=== PATIENT | female | born 1935 | race Caucasian/White ===

== ENCOUNTER 2021-09-25 16:55 | Inpatient (IN) | payer MEDICARE, MEDICAID, SELFPAY ==
[2021-09-25] VITALS (8 sets, daily range): BP systolic 116–151; BP diastolic 77–113; PULSE 79–99; RESP 30–34; TEMP 35.7–36.8; O2SAT 95–99; BMI 22.3
--- NOTE | 2021-09-25 17:10 | XRR_ITS ---
PROCEDURE INFORMATION: Exam: XR Chest Exam date and time: 09/25/2021 5:10 PM Age: 85 years old Clinical indication: Shortness of breath; Chest pressure; Patient HX: Chest pain and SOB for about a week; AMS; Additional info: Dyspnea TECHNIQUE: Imaging protocol: XR of the chest. Views: 1 view. COMPARISON: CR Chest 1 view [id number] 06/29/2019 12:54 PM FINDINGS: Tubes, catheters and devices: 2 radiodensities measuring approximately 2 and 2.4 cm in size are seen over the lower mid thorax, likely external to the patient, please correlate clinically. Lungs: Patchy bilateral airspace infiltrates. Pleural spaces: Small bilateral pleural effusions. Heart/Mediastinum: Unremarkable. No cardiomegaly. Bones/joints: Unremarkable. XR/XR chest 1V portable [id number] IMPRESSION: 1. Patchy bilateral airspace infiltrates. 2. Small bilateral pleural effusions. 3. 2 radiodensities measuring approximately 2 and 2.4 cm in size are seen over the lower mid thorax, likely external to the patient, please correlate clinically.
--- NOTE | 2021-09-25 17:11 | ECG_ITS ---
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 Measurements Intervals [place] Rate: 93 P: 38 [place]: 189 QRS: -51 QRSD: 117 T: 35 QT: 365 QTc: 455 Interpretive Statements SINUS RHYTHM LEFT ANTERIOR FASCICULAR BLOCK [QRS AXIS <= -45, QR IN I, RS IN II] LEFT VENTRICULAR HYPERTROPHY AND ST-T CHANGE [VOLTAGE CRITERIA PLUS ST/T ABNORMALITY] POSSIBLE ANTERIOR MYOCARDIAL INFARCTION , OF INDETERMINATE AGE [30 ms Q WAVE IN V3/V4, OR R < 0.2 mV IN V4] Compared to ECG 06/29/2019 20:11:41 ST (T wave) deviation now present Atrial fibrillation no longer present Myocardial infarct finding still present Electronically Signed On 09-25-2021 20:19:10 PROGRAM COORDINATOR EXECUTIVE EDUCATION by Adore Pathak M.D. [id number]
--- NOTE | 2021-09-25 17:31 | W.ED.GENADLT ---
HPI - General Adult General: Chief complaint: Shortness of Breath/Dyspnea Stated complaint: SOB Time Seen by Provider: 09/25/21 17:03 History of Present Illness: Patient is an 85-year-old female with a history of pneumonia who presents the emergency room for evaluation of worsening shortness of breath for the last week. Patient tells me that she has been feeling more tired over the last week. She thinks that I may have pneumonia again. Patient denies any productive cough, fever/chills, sore throat, runny nose, chest pain, palpitation, nausea/vomiting, diarrhea, abdominal complaints, complaints, melena or hematochezia. Onset:1 week ago Duration:1 week Location: home Severity:moderate Associated symptoms: Deny chest pain, dyspnea, nausea, rash, palpitations or vomiting Review of Systems Const: Denies: fever(s) or chills Eyes: Denies: change in vision ENMT: Denies: mouth pain Card: Denies: chest pain or palpitations Resp: Denies: dyspnea or non-productive cough GI: Denies: abdominal pain, nausea, vomiting or diarrhea : Denies: dysuria Musc: Denies: extremity pain Skin/Breast: Denies: rash or new lesions Neuro: Denies: weakness in extremities Psych: Reports: other (Normal mood) Jose/Lymph: Denies: easy bruising [facility] ED PFSH: Medical History (Updated 09/25/21 @ 19:02 by Rocio Goldsmith MD) Afib CHF (congestive heart failure) HTN (hypertension) Pneumonia Required emergent intubation 2019 Rib fracture Social History Smoking and tobacco status: never smoked Alcohol intake: never Substance/Drug Use: never Physical Exam Const: COMMON NORMALS: alert HENMT: COMMON NORMALS: atraumatic HEAD & SCALP: atraumatic MOUTH: moist mucous membranes not abnormal Eye: COMMON NORMALS: EOMs intact bilaterally and conjunctivae normal CONJUNCTIVA: Yes conjunctivae normal Neck/C-Spine: COMMON NORMALS: full ROM and supple Resp: COMMON NORMALS: normal respiratory effort OTHER: +coarse breaht sounds b/l Cardio: COMMON NORMALS: regular rate RATE: regular rate GI: COMMON NORMALS: Soft to palpation and non-tender PALPATION: Yes Soft to palpation Extremity: COMMON NORMALS: full ROM Neuro: SENSORIUM/ORIENTATION: Yes alert MOTOR EXAM: No Abnormal motor strength present and Other motor observations present (no focal motor deficits) Psych: COMMON NORMALS: speech normal SPEECH: Yes normal speech MOOD & AFFECT: Yes euthymic mood Course Vital Signs: Vital signs: Vital Signs Temperature 96.2 F L 09/25/21 17:05 Pulse Rate 99 09/25/21 17:05 Respiratory Rate 30 H 09/25/21 17:05 Blood Pressure 151/113 09/25/21 17:05 Pulse Oximetry 95 09/25/21 17:05 MDM - General Adult Medical Decision Making 85-year-old female history of prior pneumonia presenting to emergency room with 1 week of dyspnea. Patient is coarse breath sounds bilaterally. Patient satting at 94 to 95% on 4 L of oxygen. X-rays consistent with bilateral infiltrates. Patient has white count of 17. Temperature of 96.2. Covid pending. We will treat this empirically as bacterial pneumonia with azithromycin and ceftriaxone. Patient demonstrated no increased work of breathing. Patient will be admitted to hospital for management of pneumonia and worsening symptoms[place] [address]. S/p 1 dose of lasix 40mg. Disposition: admission Lab Data : 09/25/21 16:22 09/25/21 16:22 Radiology Impressions Chest X-Ray 09/25/21 17:10 IMPRESSION: 1. Patchy bilateral airspace infiltrates. 2. Small bilateral pleural effusions. 3. 2 radiodensities measuring approximately 2 and 2.4 cm in size are seen over the lower mid thorax, likely external to the patient, please correlate clinically. Laboratory Results WBC 17.0 10^3/uL (4.0-10.0) H 09/25/21 16:22 RBC 3.94 10^6/uL (4.1-5.3) L 09/25/21 16:22 Hgb 11.4 g/dL (11.5-15.3) L 09/25/21 16: Hct 36.2 % (37.0-47.0) L 09/25/21 16:22 MCV 91.9 fl (81-99) 09/25/21 16:22 MCH 28.9 pg (28.0-34.0) 09/25/21 16:22 MCHC 31.5 g/dL (30.0-36.0) 09/25/21 16:22 RDW 13.8 % (12.1-15.1) 09/25/21 16:22 Plt Count 395 10^3/cmm (130-400) 09/25/21 16:22 MPV 11.3 fL (7.4-10.4) H 09/25/21 16:22 Neut % (Auto) 86.4 % 09/25/21 16:22 Lymph % (Auto) 8.9 % 09/25/21 16:22 [place] % (Auto) 3.5 % 09/25/21 16:22 Eos % (Auto) 0.1 % 09/25/21 16:22 Baso % (Auto) 0.2 % 09/25/21 16: Neut # (Auto) 14.73 10^3/uL (1.8-7.7) H 09/25/21 16:22 Lymph # (Auto) 1.5 10^3/uL (0.8-4.8) 09/25/21 16:22 [place] # (Auto) 0.6 10^3/uL (0.2-0.9) 09/25/21 16:22 Eos # (Auto) 0.0 10^3/uL (0.0-0.8) 09/25/21 16:22 Baso # (Auto) 0.0 10^3/uL (0.0-0.1) 09/25/21 16:22 Nucleated RBC % (auto) 0 % 09/25/21 16: Nucleated RBCs # 0.0 /100WBC 09/25/21 16:22 Sodium 128 mmol/L (136-145) L 09/25/21 16:22 Potassium 4.5 mmol/L (3.5-5.1) 09/25/21 16:22 Chloride 90 mmol/L (98-107) L 09/25/21 16:22 Carbon Dioxide 19 mmol/L (22-29) L 09/25/21 16:22 Anion Gap 23.5 (5-19) H 09/25/21 16:22 BUN 16 mg/dL (8-23) 09/25/21 16:22 Creatinine 0.5 mg/dL (0.5-0.9) 09/25/21 16:22 GFR Calculation Not Reportable 09/25/21 16:22 Glucose 148 mg/dL (65-115) H 09/25/21 16:22 Calculated Osmolality 270 mOsm/kg (285-295) L 09/25/21 16:22 Calcium 9.3 mg/dL (8.5-10.5) 09/25/21 16:22 Troponin T Baseline 83 ng/L (0-10) H 09/25/21 16:22 C-Reactive Protein 33.9 mg/L (0.0-4.9) H 09/25/21 16:22 NT-Pro-B Natriuret Pep 70626 pg/mL (0-450) H 09/25/21 16:22 Procalcitonin 0.12 ng/mL (0-0.5) 09/25/21 16:22 Imaging Data Other Imaging: Radiologist's impression: [address] [address] XRay Report Signed Patient: Ria Katz Unit #: [id number] : 1935 Age/Sex: 85 / F ADM Date: 09/25/21 Loc: ER Room/Bed: Attending Dr: Ordering Provider/Ordering MD: Lenin Bridges MD Date of Service: 09/25/21 Procedure(s): XR chest 1V portable [id number] Accession Number(s): [id number] Report Number: [id number] PROCEDURE INFORMATION: Exam: XR Chest Exam date and time: 09/25/2021 5:10 PM Age: 85 years old Clinical indication: Shortness of breath; Chest pressure; Patient HX: Chest pain and SOB for about a week; AMS; Additional info: Dyspnea TECHNIQUE: Imaging protocol: XR of the chest. Views: 1 view. COMPARISON: CR Chest 1 view [id number] 06/29/2019 12:54 PM FINDINGS: Tubes, catheters and devices: 2 radiodensities measuring approximately 2 and 2.4 cm in size are seen over the lower mid thorax, likely external to the patient, please correlate clinically. Lungs: Patchy bilateral airspace infiltrates. Pleural spaces: Small bilateral pleural effusions. Heart/Mediastinum: Unremarkable. No cardiomegaly. Bones/joints: Unremarkable. XR/XR chest 1V portable [id number] IMPRESSION: 1. Patchy bilateral airspace infiltrates. 2. Small bilateral pleural effusions. 3. 2 radiodensities measuring approximately 2 and 2.4 cm in size are seen over the lower mid thorax, likely external to the patient, please correlate clinically. ? Dictated By: Orion Borges MD Signed By: Orion Borges MD Signed Date/Time: 09/25/21 1745 DD/ 1710 Discharge Plan Discharge Patient Disposition: Admitted As Inpatient Admit Provider: Roico Goldsmith Clinical Impression: CHF exacerbation, Pneumonia Condition: Stable Coding Level of Care Code ED Car Servicer for Chg Fwd Exam Comprehensive
--- NOTE | 2021-09-25 17:37 | PC.NURSE ---
pATIENT PLACED ON CONTINUOUS NIBP AND CM
[2021-09-25 17:42] LABS: Basophils % 0.2 %; Eosinophils % 0.1 %; Hematocrit 36.2 % (37.0-47.0); Hemoglobin 11.4 g/dL (11.5-15.3); Lymphocytes # 1.5 10^3/uL (0.8-4.8); Lymphocytes % 8.9 %; Mean Corpuscular HGB Conc 31.5 g/dL (30.0-36.0); Mean Corpuscular Hemoglobin 28.9 pg (28.0-34.0); Mean Corpuscular Volume 91.9 fl (81-99); Mean Platelet Volume 11.3 fL (7.4-10.4); Monocytes # 0.6 10^3/uL (0.2-0.9); Monocytes % 3.5 %; Neutrophils # 14.73 10^3/uL (1.8-7.7); Neutrophils % 86.4 %; Nucleated Red Blood Cells % 0 %; Platelet Count 395 10^3/cmm (130-400); Red Blood Count 3.94 10^6/uL (4.1-5.3); Red Cell Distribution Width 13.8 % (12.1-15.1)
[2021-09-25 17:58] LABS: Troponin(5th) Baseline 83 ng/L (0-10)
[2021-09-25 18:05] LABS: NT Pro B Type Natriuretic Pept 10495 pg/mL (0-450); Procalcitonin 0.12 ng/mL (0-0.5)
[2021-09-25] MEDS: cefTRIAXone 1,000 MG in sodium chloride 0.9% (plus) 50 ML 100 MG IV (18:06)
[2021-09-25 18:19] LABS: Anion Gap 23.5 (5-19); Blood Urea Nitrogen 16 mg/dL (8-23); C Reactive Protein 33.9 mg/L (0.0-4.9); Calcium 9.3 mg/dL (8.5-10.5); Carbon Dioxide 19 mmol/L (22-29); Chloride 90 mmol/L (98-107); Glucose 148 mg/dL (65-115); Osmolality Calculated 270 mOsm/kg (285-295); Potassium 4.5 mmol/L (3.5-5.1); Sodium 128 mmol/L (136-145)
[2021-09-25] MEDS: azithromycin 500 MG in sodium chloride 0.9% 250 ML 250 MG IV (18:38)
--- NOTE | 2021-09-25 18:55 | P.HP_ITS ---
Providers/Chief Complaint Admitting Physician: Rocio Goldsmith MD Primary Care Provider: Celestine Delong MD Chief Complaint: SOB History of Present Illness Ria Katz is a 85 year old female without significant past medical history presented today with chief complaint of shortness of breath. Patient stating that for last 2 weeks she has been experiencing cold-like symptoms such as fatigue, lethargy however no fever diarrhea chest pain. No orthopnea or PND. She is denying weight gain. She does not use any oxygen at home. No recent COVID-19 related exposure or symptoms. She is not vaccinated. She was reluctant to come to the hospital however decided to come in because of worsening shortness of breath and reproducible midepigastric discomfort. She has not experienced diaphoresis or vomiting. Diagnostic work-up in the ER revealed CHF exacerbation and changes concerning pneumonia. I have requested CTA chest, will add BiPAP to decrease her work of breathing, she was put on 4 L nasal cannula, she is experiencing conversational dyspnea, using abdominal muscles, Hypertensive urgency Review of Systems Const: Reports: chills, body aches and fatigue Eyes: Denies: change in vision ENMT: Denies: throat pain Card: Reports: chest pain and dyspnea on exertion Resp: Reports: dyspnea GI: Denies: abdominal pain : Denies: flank pain Musc: Reports: back pain Skin/Breast: Denies: rash Neuro: Denies: headache(s) Psych: Reports: anxiety Endo: Denies: polyuria Jose/Lymph: Denies: easy bruising All/Imm: Denies: urticaria Medications/Allergies Home Medications Medication Instructions Recorded Confirmed Last Taken Type No Known Home Medications 09/25/21 09/25/21 Unknown History PFSH Acute 2 PFSH: Medical History Afib CHF (congestive heart failure) HTN (hypertension) Pneumonia Required emergent intubation 2019 Rib fracture Tubal ligation evaluation Surgical History No pertinent past surgical history Family History Denies family history of Family history of premature coronary artery disease Social History Smoking and tobacco status: never smoked Alcohol intake: never Substance/Drug Use: never Vitals/I&O/Wt Last Vital Signs Temp 96.2 F L 09/25/21 17:05 Pulse 99 09/25/21 17:05 Resp 30 H 09/25/21 17:05 BP 151/113 09/25/21 17:05 Pulse Ox 95 09/25/21 17:05 Weight last 48 hrs Weight 58.967 kg Physical Exam Narrative: elderly female Looks fluid overloaded Pedal edema and leg edema +1+ Conversational dyspnea On 4 L nasal cannula Using abdominal muscles I did not appreciate JVD however has coarse crackles of the lungs bilaterally Nonfocal neuro exam Poor dentition Awake and alert Nonfocal neuro exam Daughter at the bedside Data : 09/25/21 16:22 09/25/21 16:22 A&P Assessment and plan (1) CHF exacerbation: Status: Acute (2) Pneumonia: Status: Acute (3) Respiratory failure: Status: Acute Plan Acute CHF exacerbation High BNP Clinical signs of fluid overload We will request BiPAP to decrease her work of breathing Currently on 4 L nasal cannula Acute hypoxic respiratory failure On 4 L nasal cannula Using abdominal muscles Conversational dyspnea Requested CTA chest rule out PE Possible community-acquired pneumonia Continue ceftriaxone azithromycin Add steroids TSH Check D-dimer COVID-19 is pending Full code Patient wants her daughter to make further decision in case of further worsening Hypertensive urgency: Add hypertensive regimen Cardiac diet Attestations Medical Necessity Statement*: >2 midnights anticipated Time Spent in Patient Care: 35mins Coding Level of Care Code Acute Falafel Cart Cook for [facility] Fwd Diagnoses CHF exacerbation I50.9 Pneumonia J18.9 Respiratory failure J96.90
--- NOTE | 2021-09-25 19:11 | ECG_ITS ---
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 Measurements Intervals [place] Rate: 89 P: 30 [place]: 180 QRS: -54 QRSD: 117 T: 73 QT: 375 QTc: 458 Interpretive Statements SINUS RHYTHM WITH MARKED RHYTHM IRREGULARITY, POSSIBLE NON-CONDUCTED PAC LEFT ANTERIOR FASCICULAR BLOCK [QRS AXIS <= -45, QR IN I, RS IN II] LEFT VENTRICULAR HYPERTROPHY AND ST-T CHANGE [VOLTAGE CRITERIA PLUS ST/T ABNORMALITY] POSSIBLE ANTERIOR MYOCARDIAL INFARCTION , OF INDETERMINATE AGE [30 ms Q WAVE IN V3/V4, OR R < 0.2 mV IN V4] Compared to ECG 09/25/2021 17:44:53 No significant changes Electronically Signed On 09-26-2021 8:02:50 TRADER FIXED INCOME by Adore Pathak M.D. [id number]
[2021-09-25 19:20] LABS: Troponin 5 2HR 70.47 ng/L (0-10)
--- NOTE | 2021-09-25 19:38 | CTR_ITS ---
PROCEDURE INFORMATION: Exam: CTA Chest With Contrast Exam date and time: 09/25/2021 7:38 PM Age: 85 years old Clinical indication: Dyspnea; Patient HX: Acute hypoxia and SOB; Additional info: Acute hypoxia SOB TECHNIQUE: Imaging protocol: Computed tomographic angiography of the chest with contrast. 3D rendering (Not supervised by radiologist): MIP and/or 3D reconstructed images were created by the technologist. Radiation optimization: All CT scans at this facility use at least one of these dose optimization techniques: automated exposure control; mA and/or kV adjustment per patient size (includes targeted exams where dose is matched to clinical indication); or iterative reconstruction. Contrast material: OMNI 350; Contrast volume: 55 ml; Contrast route: INTRAVENOUS (IV); COMPARISON: CT Chest w IV contrast* [id number] 06/25/2019 9:50 AM RADIATION DOSE METRICS: Total DLP (mGy-cm): 483.81 FINDINGS: Pulmonary arteries: Evaluation of peripheral pulmonary arteries is limited beyond the segmental level secondary to the phase of contrast enhancement. No filling defects in the central pulmonary arteries to suggest a large pulmonary embolism. Aorta: Stable moderate atherosclerotic changes in the visualized arteries. No evidence for aortic aneurysm. Evaluation for aortic dissection is limited due to the phase of contrast-enhancement. Lungs: Mucous plugging with in the left apicoposterior bronchus with alveolar airspace disease in the affected segment suggesting postobstructive atelectasis/pneumonia in the left upper lobe. Diffuse, bilateral moderately severe areas of ground-glass opacification in a random distribution in both lungs. No pulmonary parenchymal nodules or masses. Pleural spaces: Moderate bilateral pleural effusions. No pneumothorax. Heart: Stable moderate enlargement of the heart. Stable calcification of the aortic and mitral valves. Stable extensive atherosclerotic calcification in the coronary arteries. Esophagus: The esophagus is collapsed, which can limit evaluation. No focal abnormality in the esophagus otherwise. Mediastinal space: No mediastinal hematoma. No pneumomediastinum. Lymph nodes: Multiple subcentimeter lymph nodes in the mediastinum. No lymphadenopathy. Liver: The visualized liver is unremarkable. Spleen: The visualized spleen is unremarkable. Adrenal glands: The visualized right and left adrenal glands are unremarkable. Kidneys and ureters: The visualized left kidney is unremarkable. Bones/joints: Bones are diffusely osteopenic. Old, mild compression deformities of T7 and T10. Degenerative changes in the spine and shoulders. Soft tissues: No acute abnormality in the extrathoracic soft tissues. CT/CT angio chest PE protcl [id number] IMPRESSION: 1. Mucous plugging with in the left apicoposterior bronchus with alveolar airspace disease in the affected segment suggesting postobstructive atelectasis/pneumonia in the left upper lobe. Recommend followup chest imaging to insure resolution of these findings. 2. Diffuse, bilateral moderately severe areas of ground-glass opacification in a random distribution in both lungs. Differential diagnosis includes asymmetric pulmonary edema versus an atypical pneumonia, including viral organisms. Again, recommend followup chest imaging to insure resolution of these findings. 3. Evaluation of peripheral pulmonary arteries is limited beyond the segmental level secondary to the phase of contrast enhancement. No filling defects in the central pulmonary arteries to suggest a large pulmonary embolism. 4. Moderate bilateral pleural effusions. 5. Incidental/nonacute findings are listed in the report.
--- NOTE | 2021-09-25 19:41 | ECG_ITS ---
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 Measurements Intervals [place] Rate: 96 P: [place]: QRS: -50 QRSD: 109 T: 37 QT: 386 QTc: 490 Interpretive Statements SINUS RHYTHM WITH PAC'S LEFT ANTERIOR FASCICULAR BLOCK [QRS AXIS <= -45, QR IN I, RS IN II] MINIMAL VOLTAGE CRITERIA FOR LVH, CONSIDER NORMAL VARIANT POSSIBLE ANTERIOR MYOCARDIAL INFARCTION , OF INDETERMINATE AGE Compared to ECG 09/25/2021 18:58:19 ST (T wave) deviation no longer present Myocardial infarct finding still present Electronically Signed On 09-26-2021 8:00:34 DEFENSIVE LINE COACH by Adore Pathak M.D. [id number]
[2021-09-25 19:47] LABS: Adenovirus Not Detected (NOT DETECT); Chlamydia Pneumoniae Not Detected (NOT DETECT); Coronavirus 229E,HKU1,NL63,OC4 Not Detected (NOT DETECT); Human Metapneumovirus Not Detected (NOT DETECT); Human Rhinovirus/Enterovirus Not Detected (NOT DETECT); Influenza A Not Detected (NOT DETECT); Influenza A H1 Not Detected (NOT DETECT); Influenza A H1-2009 Not Detected (NOT DETECT); Influenza A H3 Not Detected (NOT DETECT); Influenza B Not Detected (NOT DETECT); Mycoplasma Pneumoniae Not Detected (NOT DETECT); Parainfluenza Virus Type 1 Not Detected (NOT DETECT); Parainfluenza Virus Type 2 Not Detected (NOT DETECT); Parainfluenza Virus Type 3 Not Detected (NOT DETECT); Parainfluenza Virus Type 4 Not Detected (NOT DETECT); Respiratory Syncytial Virus A Not Detected (NOT DETECT); Respiratory Syncytial Virus B Not Detected (NOT DETECT); SARS-COV-2 Not Detected (NOT DETECT)
[2021-09-25 19:55] LABS: Influenza A Not Detected (NOT DETECT); Influenza A H1 Not Detected (NOT DETECT); Influenza A H1-2009 Not Detected (NOT DETECT); Influenza A H3 Not Detected (NOT DETECT); Influenza B Not Detected (NOT DETECT); Results from Genmark
[2021-09-25 19:59] LABS: Procalcitonin 0.12 ng/mL (0-0.5)
[2021-09-25] MEDS: FUROsemide 10 mg/mL SDV 10mL 80 MG IVP (20:27)
[2021-09-25] MEDS: morphine 4 mg/mL SDV 1 mL 2 MG IVP (20:27)
[2021-09-25] MEDS: iohexol 350 mg/mL 100 mL Btl IV (21:09)
--- NOTE | 2021-09-25 21:22 | USCV_ITS ---
Transthoracic Echo Ria Katz Age: 85 Gender: F : 1935 Exam Date: 09/25/2021 23:11 Ordering Phys: Rocio Goldsmith MD Technologist: Holden Gonzalez Exam Location: [facility] [place] Indication: CHF BP: / HR: 81 Rhythm: Sinus Technical Quality: Adequate MEASUREMENTS (Male / Female) Normal Values 2D ECHO LV Diastolic Diameter PLAX 2.5 cm 4.2 - 5.9 / 3.9 - 5.3 cm LV Systolic Diameter PLAX 2.2 cm IVS Diastolic Thickness 2.0 cm 0.6 - 1.0 / 0.6 - 0.9 cm IVS Systolic Thickness 1.8 cm LVPW Diastolic Thickness 2.0 cm 0.6 - 1.0 / 0.6 - 0.9 cm LVPW Systolic Thickness 2.3 cm LVOT Diameter 1.9 cm LV Ejection Fraction 2D Teich 22.4 % LV Ejection Fraction MOD 2C 35.9 % LV Ejection Fraction 2C AL 34.0 % LA Diameter 3.8 cm LA Width 4.8 cm LA Height 6.6 cm RA Width 3.1 cm RA Height 5.1 cm Aorta at Sinotubular Diameter 1.7 cm M-MODE Aortic Annulus Diameter 1.9 cm LA Ao Ratio MM 1.7 MV E Point Septal Separation 2.5 cm DOPPLER AV Peak Velocity 407.7 cm/s LVOT Peak Velocity 44.7 cm/s AV Area Cont Eq vti 0.5 cm squared AV Area Cont Eq pk 0.3 cm squared MV Peak Velocity 80.0 cm/s MV Area PHT 4.6 cm squared Mitral E to A Ratio 1.2 MV E' Velocity 43.0 cm/s Mitral E to MV E' Ratio 15.2 Mitral E to LV E' Lateral Ratio 11.4 Mitral E to LV E' Septal Ratio 22.5 TR Peak Velocity 119.9 cm/s TR Peak Gradient 5.8 mmHg TR Mean Velocity 106.1 cm/s TR Mean Gradient 5.9 mmHg TR Velocity Time Integral 36.3 cm Right Atrial Pressure 10.0 mmHg Pulmonary Artery Systolic Pressu 15.8 mmHg PV Peak Velocity 82.7 cm/s RV Acceleration Time 0.1 s RV Ejection Time 0.3 s RV AcT/ET 0.4 FINDINGS Left Ventricle Normal left ventricular size. LV systolic function is moderate to severely reduced with EF of 30-35%. Moderate to severe global hypokinesis. Grade 2 diastolic dysfunction Right Ventricle The right ventricle is normal in size and function. Right Atrium The right atrium is normal in size. Left Atrium The left atrium is dilated Mitral Valve Moderate mitral annular calcification without significant stenosis or prolapse. There is mild mitral regurgitation. Aortic Valve Aortic valve is thickened and calcified. There is severe low flow low gradient aortic stenosis. By continued equation, patient's aortic valve area is 0.7 cm squared with mean gradient of 31 mmHg. There is moderate aortic regurgitation. Tricuspid Valve Structurally normal tricuspid valve without significant stenosis. Mild tricuspid regurgitation. Insufficient TR jet to calculate RVSP Pulmonic Valve Not well visualized. There is mild pulmonic regurgitation. Pericardium Normal pericardium without effusion. Aorta Normal ascending aorta dimension. CONCLUSIONS LV systolic function is moderate to severely reduced with EF of 30-35% Moderate to severe global hypokinesis. Grade 2 diastolic dysfunction Left atrium is dilated Aortic valve is thickened and calcified. There is severe low flow low gradient aortic stenosis. By continued equation, patient's aortic valve area is 0.7 cm squared with mean gradient of 31 mmHg. There is moderate aortic regurgitation. Moderate mitral annular calcification without significant stenosis or prolapse. There is mild mitral regurgitation. Mild tricuspid regurgitation. Mild pulmonic regurgitation Compared to prior echocardiogram from 06/26/2019, LV systolic function has decreased further and is now 30-35% Bharat Mtz MD (Electronically Signed) Final Date: 26 September 2021 16:54 S
[2021-09-25 22:11] LABS: Add Urine Microscopic? YES; Bilirubin Urine Neg (Negative); Blood Urine Neg (Negative); Glucose Urine UA Norm (Normal); Ketones Urine Negative (Negative); Leukocyte Esterase Urine Negative (Negative); Nitrate Urine Negative (Negative); Protein Urine 1+ (Negative); Urine Appearance Clear (CLEAR); Urine Color Yellow (Yellow); Urobilinogen Urine Norm (Negative); pH Urine 5 (5-7)
[2021-09-25 22:12] LABS: RBC Urine 0-4 /hpf (0-2); WBC Urine 0-4 /hpf (0-5)
[2021-09-25 22:13] LABS: Add Urine Culture? No; Amorphous Sediment Urine 1+ /hpf; Bacteria Urine 1+ /hpf
[2021-09-25 23:12] LABS: Troponin 5 6HR 69.07 ng/L (0-10)
[2021-09-25 23:24] LABS: Thyroid Stimulating Hormone 1.49 uIU/mL (0.27-4.20)
[2021-09-26] VITALS (12 sets, daily range): BP systolic 96–116; BP diastolic 63–77; PULSE 69–109; RESP 12–26; TEMP 36.6–37.1; O2SAT 94–100
--- NOTE | 2021-09-26 01:41 | ECG_ITS ---
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 Measurements Intervals [place] Rate: 83 P: 28 [place]: 189 QRS: -54 QRSD: 113 T: -29 QT: 443 QTc: 521 Interpretive Statements SINUS RHYTHM LEFT ANTERIOR FASCICULAR BLOCK [QRS AXIS <= -45, QR IN I, RS IN II] MINIMAL VOLTAGE CRITERIA FOR LVH, CONSIDER NORMAL VARIANT [MEETS CRITERIA IN ONE OF: R(aVL), S(V1), R(V5), R(V5/V6)+S(V1)] POSSIBLE ANTERIOR MYOCARDIAL INFARCTION , OF INDETERMINATE AGE [30 ms Q WAVE IN V3/V4, OR R < 0.2 mV IN V4] Compared to ECG 09/25/2021 19:46:22 Atrial fibrillation no longer present Myocardial infarct finding still present Electronically Signed On 09-26-2021 17:39:53 ACCOUNTING CONSULTANT by Bharat Mtz M.D. [id number]
[2021-09-26 05:09] LABS: ABG PCO2 39.8 mmHg (35-45); ABG PH Result 7.46 (7.35-7.45); Arterial Blood Gas Hematocrit 32.8 % (37-47); Blood Gas Allen Test Pos; Blood Gas Sample Site Radial, left; Blood Gas Sample Type Arterial; HCO3 ABG 28.1 mmol/L (22-26); Oxygen Device BIPAP
[2021-09-26 05:56] LABS: Basophils % 0.2 %; Eosinophils # 0.1 10^3/uL (0.0-0.8); Eosinophils % 0.8 %; Hematocrit 30.8 % (37.0-47.0); Hemoglobin 9.9 g/dL (11.5-15.3); Lymphocytes # 3.1 10^3/uL (0.8-4.8); Lymphocytes % 24.2 %; Mean Corpuscular HGB Conc 32.1 g/dL (30.0-36.0); Mean Corpuscular Hemoglobin 28.9 pg (28.0-34.0); Mean Corpuscular Volume 90.1 fl (81-99); Mean Platelet Volume 10.3 fL (7.4-10.4); Monocytes # 0.9 10^3/uL (0.2-0.9); Monocytes % 6.8 %; Neutrophils # 8.58 10^3/uL (1.8-7.7); Neutrophils % 67.5 %; Nucleated Red Blood Cells % 0 %; Platelet Count 373 10^3/cmm (130-400); Red Blood Count 3.42 10^6/uL (4.1-5.3); Red Cell Distribution Width 13.9 % (12.1-15.1); White Blood Count 12.7 10^3/uL (4.0-10.0)
--- NOTE | 2021-09-26 06:07 | PC.NURSE ---
Patient refused to have mrsa pcr completed.
[2021-09-26 06:26] LABS: Troponin T (5th) Once 80 ng/L (0-10)
[2021-09-26 06:35] LABS: Alanine Aminotransferase 19 U/L (0-33); Albumin Level 3.3 g/dL (3.5-5.2); Alkaline Phosphatase 73 IU/L (35-105); Aspartate Amino Transferase 16 U/L (0-32); Blood Urea Nitrogen 14 mg/dL (8-23); Calcium 8.9 mg/dL (8.5-10.5); Carbon Dioxide 27 mmol/L (22-29); Chloride 94 mmol/L (98-107); Globulin 3.4 g/dL (1.3-4.6); Glucose 104 mg/dL (65-115); Magnesium 2.1 mg/dL (1.7-2.3); Osmolality Calculated 277 mOsm/kg (285-295); Sodium 133 mmol/L (136-145); Total Bilirubin 0.2 mg/dL (0.15-1.2); Total Protein 6.7 g/dL (6.6-8.7)
--- NOTE | 2021-09-26 06:36 | PC.NURSE ---
Shift Note Frequent safety and comfort rounds continue. Orders and/or nursing care completed as indicated. Patient monitored for response to intervention and treatment(s). Education provided includes visiting hours. Patient and/or sales representative marine supplies verbalize understanding however daughter didnt leave. Will continue to monitor.
[2021-09-26] MEDS: azithromycin 250 mg Tablet 500 MG PO (08:32)
[2021-09-26] MEDS: predniSONE 20 mg Tablet 40 MG PO (08:32)
[2021-09-26] MEDS: guaiFENesin 600 mg Tablet 1200 MG PO ×2 (08:33→17:28)
[2021-09-26] MEDS: cefTRIAXone 1,000 MG in sodium chloride 0.9% (plus) 50 ML 100 MG IV (08:34)
[2021-09-26] MEDS: FUROsemide 10 mg/mL SDV 10mL 60 MG IVP (08:35)
--- NOTE | 2021-09-26 09:55 | PC.CHAP ---
Pastoral Care Encounter/Spiritual Assessment Type of Contact [] Declined submarine worker visit [] Patient/Family/Request visit [] Outpatient visit [] Follow-up visit [] Physician referral [] Code/Alert [x] Routine visit [] Staff referral [] Actively dying [] Patient sleeping [] Family support [] [] Out of room [] Palliative care [] [] Receiving care in room [] Pre-surgical visit [] Trauma [] Long length of stay [] ICU visit [] Other: Relational/Emotional Strength [x] Patient feels connected with others/family/visitors/staff [] Distress [] Loneliness/isolation [] Abandonment Spirituality of Patient [x] Person of Irish [] Attends Spiritism of their Irish [x] Believes in Prayer [] Reads Bible or Protestant materials [] There are Spiritual issues to be addressed Endless Bed Drum Sander Interventions [x] Prayer [x] Active listening [x] Non-anxious presence [x] Spiritual/emotional support [] Crisis/trauma care [] Spiritual counseling [] Bereavement support [] Provided bereavement packet [] Provided Bible/devotional materials [] Provided toy/stuffed animal, coloring book to patient or family member [] Provided Communion [] Anointing/[place] [] Salvation [x] Completed spiritual assessment [] Other: Impact on Illness or Injury [] Angry [] Fearful [] Anxious [] Often cries [] Exhaustion [] Unable to work [] Unable to attend hinduism [] Unable to walk/stand [] Unable to read [] Unable to drive [] Unable to eat/drink [] Unable to sleep [] Unable to be with family [] Patient intubated [] Other: Summary Pt's daughter was present and did most of the talking. Pt came in yesterday and they believe she will stay until tomorrow. Daughter does not have a car and hired an Uber to get to the hospital. Money to hire and Uber to get back and forth is an issue. She has multiple health issues herself including a bad back so she is unable to walk far. As submarine worker was visiting, the daughter did obtain a food tray from the cafeteria so she had something to eat. Another problem they are dealing with is the Pt has soiled clothing and they are uncertain what Pt will wear home. There is no one available that can bring clothing to Pt. Pt lives with daughter, the daughters is an over the road mud trucker and he is currently away. Pt has grandsons living in the home but none able to drive. Time spent with patient 15m
--- NOTE | 2021-09-26 11:26 | PM.PN ---
Subjective Subjective: Patient is feeling much better, currently on 4 L nasal cannula He was asking for food, upset that she has not received her blood pressure Eager to return home Leukocytosis improving Afebrile Covid negative Influenza negative Did well over night with BiPAP Vitals/I&O/Wt Last Vital Signs Temp 98.5 F 09/26/21 07:05 Pulse 78 09/26/21 07:48 Resp 12 09/26/21 07:05 BP 96/63 09/26/21 07:05 Pulse Ox 99 09/26/21 07:48 09/25/21 09/26/21 09/26/21 22:59 06:59 14:59 Intake Total 300 / 300 100 / 400 50 / 50 Output Total 4400 / 4400 Balance 300 / 300 -4300 / -4000 50 / 50 Weight last 48 hrs Weight 79.696 kg Weight 58.967 kg Physical Exam Narrative: Patient looks much more alert and awake S1, S2 Abdomen soft Trace edema of legs No audible stridor or wheezing Currently on 4 L nasal cannula Awake and alert Nonfocal neuro exam Work of breathing has improved significantly Urinary Catheter Management: Mo: Cath Placed During This Visit: yes Reason for Continuing Indwelling Catheter: Acute Urinary Retention or Obstruction Urinary Catheter Date of Insertion: 09/25/21 Urinary Catheter Time of Insertion: 20:29 Data : 09/26/21 05:12 09/26/21 05:12 A&P Assessment and plan (1) Mucus plugging of bronchi: Status: Acute (2) Respiratory failure: Status: Acute (3) CHF exacerbation: Status: Acute (4) Pneumonia: Status: Acute (5) Acute respiratory failure with hypoxia: Status: Acute Plan Acute respiratory failure Mucous plug Patient was suffering from increased work of breathing, conversational dyspnea Required BiPAP overnight This morning she is doing better, work of breathing has improved Currently on 4 L nasal cannula No PE or COVID-19, influenza negative Continue ceftriaxone and azithromycin Prednisone 40 mg daily Add chest vest 3 times daily with Mucinex Outpatient pulmonary follow-up if she stays stable New onset CHF exacerbation Echo is pending Continue low-dose Lasix MRSA PCR pending Hypertension: Reduce the dose of Lasix pressure was softer Full code Cardiac DVT prophylaxis Lovenox Attestations Medical Necessity Statement*: Continue hospitalization Time Spent in Patient Care: 20min Coding Level of Care Code Acute Online Affiliate Marketing Manager for Chg Fwd Diagnoses Mucus plugging of bronchi T17.500A Respiratory failure J96.90 CHF exacerbation I50.9 Pneumonia J18.9 Acute respiratory failure with hypoxia J96.01
[2021-09-26] MEDS: enoxaparin 40 mg/0.4 mL Syringe SUBCUT (11:58)
--- NOTE | 2021-09-26 17:30 | PC.NURSE ---
Vital signs stable. Mo intact and clean with adequate output. Patient did not complain of any pain. Patients visitor was reminded of the visiting hours for tonight. Patient did not have a bowel movement. Patient is currently on 4 L of oxygen. Will continue to monitor and give report to night nurse.
[2021-09-26] MEDS: ipratropium-albuterol 3 mL Neb INHALATION (20:19)
--- NOTE | 2021-09-26 22:23 | P.CONIM_ITS ---
Providers/Reason For Consult Consulting Physician/Specialty*: Dr AVERY Short/Cardiology Reason for Consult*: /CHF/LV dysfunction Requesting Physician: Agus Attending Physician: Rocio Goldsmith MD Primary Care Provider: Celestine Delong MD History of Present Illness History of Present Illness Ria Katz is a 85 year old female with no significant past medical history is presenting with complaints of progressive shortness of breath for the last 2 weeks. She has not been to a physician for many years. She started with the dyspnea on exertion. Her shortness of breath got worse. She also had some feeling of tightness in the chest. No fever or chills. No significant cough. She has been having some amount of orthopnea and PND. Because of the worsening shortness of breath and weakness, she decided to come to the hospital. Her chest x-ray showed features suggestive of possible pneumonia versus atypical pulmonary edema. She was initially placed on BiPAP. Her oxygenation gradually improved. Currently she is off BiPAP and is on 4 L of oxygen by nasal cannula. She had echocardiogram which revealed LV dysfunction with aortic valve stenosis. Cardiology consult is requested for further cardiac evaluation recommendations. Patient has no previous history for any coronary disease, myocardial infarction or congestive heart failure. No history for hypertension, diabetes or dyslipidemia. She is a poor historian. She has not been taking medications at home. The patient apparently had echocardiogram which is reported as LV ejection fraction of 30 to 35%. Severe low gradient aortic valve stenosis with a valve area of 0.7 cm2. Mean gradient of 31 mmHg. The official report is not available at this time. Review of Systems Const: Reports: chills, body aches and fatigue Eyes: Denies: change in vision ENMT: Denies: throat pain Card: Reports: chest pain and dyspnea on exertion Resp: Reports: dyspnea GI: Denies: abdominal pain : Denies: flank pain Musc: Reports: back pain Skin/Breast: Denies: rash Neuro: Denies: headache(s) Psych: Reports: anxiety Endo: Denies: polyuria Jose/Lymph: Denies: easy bruising All/Imm: Denies: urticaria Medications/Allergies Home Medications Medication Instructions Recorded Confirmed Last Taken Type No Known Home Medications 09/25/21 09/25/21 Unknown History Allergies Allergy/AdvReac Type Severity Reaction Status Date / Time No Known Allergies Allergy Verified 09/25/21 20:48 Current Medications Generic Name Dose Route Start Last Admin Trade Name Tavaresq PRN Reason Stop Dose Admin Albuterol/Ipratropium 3 ml 09/25/21 21:22 09/26/21 20:19 Ipratropium-Albuterol 3 Ml Neb INHALATION 3 ml Q6H PRN Administration SHORTNESS OF BREATH Azithromycin 500 mg 09/26/21 09:00 09/26/21 08:32 Azithromycin 250 Mg Tablet PO 500 mg DAILY BRENNEN Administration Protocol Enoxaparin Sodium 40 mg 09/26/21 12:00 09/26/21 11:58 Enoxaparin 40 Mg/0.4 Ml Syringe SUBCUT 40 mg Q24H BRENNEN Administration Guaifenesin 1,200 mg 09/26/21 08:00 09/26/21 17:28 Guaifenesin 600 Mg Tablet PO 1,200 mg BID BRENNEN Administration Ceftriaxone Sodium 1,000 mg/ 50 mls @ 100 mls/hr 09/26/21 09:00 09/26/21 09:24 Sodium Chloride IV Infused DAILY BRENNEN Infusion Protocol Prednisone 40 mg 09/26/21 09:00 09/26/21 08:32 Prednisone 20 Mg Tablet PO 40 mg DAILY BRENNEN Administration Senna/Docusate Sodium 1 tab 09/26/21 09:00 09/26/21 08:36 Sennosides-Docusate Tablet PO Not Given DAILY BRENNEN PFSH Acute PFSH: Medical History (Updated 09/27/21 @ 06:17 by Eryn Short MD) Afib CHF (congestive heart failure) HTN (hypertension) Pneumonia Required emergent intubation 2019 Rib fracture Tubal ligation evaluation Surgical History No pertinent past surgical history Family History Denies family history of Family history of premature coronary artery disease Social History Smoking and tobacco status: never smoked Alcohol intake: never Vitals/I&O/Wt Last Vital Signs Temp 97.8 F 09/26/21 20:00 Pulse 95 09/26/21 20:39 Resp 18 09/26/21 20:32 BP 116/77 09/26/21 20:00 Pulse Ox 97 09/26/21 20:32 09/26/21 09/26/21 09/26/21 06:59 14:59 22:59 Intake Total 100 / 400 50 / 50 Output Total 4400 / 4400 1200 / 1200 1800 / 3000 Balance -4300 / -4000 -1150 / -1150 -1800 / -2950 Weight last 48 hrs Weight 175 lb 11.2 oz Weight 130 lb Physical Exam 2 Narrative: GENERAL: The patient is alert and oriented times three. Not in any acute distress. HEENT: Mild pallor. No icterus or lymphadenopathy. The pupils are reactant to light. Oral cavity: There are no mucous membrane lesions. Funduscopic examination: Fundus is not visualized NECK: Trachea appears to be central. No masses noted. No JVD or thyromegaly ap preciated. No carotid bruit. RESPIRATORY: Chest is symmetrical. No intercostals muscle retraction or any accessory muscle activation. There is no chest wall tenderness. Breath sounds are heard bilaterally. The intensity of the breath sounds are diminished in the bases. BREASTS: Deferred. HEART: The PMI could not be palpated. No palpable precordial events. S1 and S2 are normal. No S3 or S4 heard. No pericardial rub or any click heard. Ejection systolic murmur grade 4/6 in the aortic area. No diastolic murmurs. ABDOMEN: Abdomen is obese. No vessel pulsations or distention. No tenderness. No organomegaly appreciated. No abdominal bruit. Bowel sounds are normally heard. Vague tenderness in the umbilical region. : Deferred. RECTAL: Deferred. LYMPHATIC: No lymphadenopathy noted in the neck or groin. EXTREMITIES: 1- 2+ edema both lower extremities. No cyanosis. Peripheral pulses are palpable but weak bilaterally. MUSCULOSKELETAL: No acute joint deformities or swelling. SKIN: There are no significant scars or skin rash noted. NEUROPSYCHIATRIC: The patient is alert and oriented x3. Appears to be in a good mood. The higher functions are grossly within normal limits. No tremors or r igidity noted. Urinary Catheter Management: Mo: Cath Placed During This Visit: yes Reason for Continuing Indwelling Catheter: Acute Urinary Retention or Obstruction Urinary Catheter Date of Insertion: 09/25/21 Urinary Catheter Time of Insertion: 20:29 Data : 09/27/21 04:25 09/27/21 04:25 Other Labs: Laboratory Last Values WBC 12.7 10^3/uL (4.0-10.0) H 09/26/21 05:12 RBC 3.42 10^6/uL (4.1-5.3) L 09/26/21 05:12 Hgb 9.9 g/dL (11.5-15.3) L 09/26/21 05:12 Hct 30.8 % (37.0-47.0) L 09/26/21 05:12 MCV 90.1 fl (81-99) 09/26/21 05:12 MCH 28.9 pg (28.0-34.0) 09/26/21 05:12 MCHC 32.1 g/dL (30.0-36.0) 09/26/21 05:12 RDW 13.9 % (12.1-15.1) 09/26/21 05:12 Plt Count 373 10^3/cmm (130-400) 09/26/21 05:12 MPV 10.3 fL (7.4-10.4) 09/26/21 05:12 Neut % (Auto) 67.5 % 09/26/21 05:12 Lymph % (Auto) 24.2 % 09/26/21 05:12 Mcdonald % (Auto) 6.8 % 09/26/21 05:12 Eos % (Auto) 0.8 % 09/26/21 05:12 Baso % (Auto) 0.2 % 09/26/21 05:12 Neut # (Auto) 8.58 10^3/uL (1.8-7.7) H 09/26/21 05:12 Lymph # (Auto) 3.1 10^3/uL (0.8-4.8) 09/26/21 05:12 Mcdonald # (Auto) 0.9 10^3/uL (0.2-0.9) 09/26/21 05:12 Eos # (Auto) 0.1 10^3/uL (0.0-0.8) 09/26/21 05:12 Baso # (Auto) 0.0 10^3/uL (0.0-0.1) 09/26/21 05:12 Nucleated RBC % (auto) 0 % 09/26/21 05:12 Nucleated RBCs # 0.0 /100WBC 09/26/21 05:12 Specimen Type Arterial 09/26/21 05:00 Sample Site Radial, left 09/26/21 05:00 ABG pH 7.46 (7.35-7.45) H 09/26/21 05:00 ABG pCO2 39.8 mmHg (35-45) 09/26/21 05:00 ABG pO2 119.0 mmHg (80.0-100.0) H 09/26/21 05:00 ABG HCO3 28.1 mmol/L (22-26) H 09/26/21 05:00 ABG Base Excess 4.0 mmol/L (-2.0-2.0) H 09/26/21 05:00 Solitario Test Pos 09/26/21 05:00 Hematocrit 32.8 % (37-47) L 09/26/21 05:00 O2 Delivery Device Bipap 09/26/21 05:00 FiO2 40.0 % 09/26/21 05:00 PEEP 6.0 cmH20 09/26/21 05:00 Couture Dressmaker ID Hensa 09/26/21 05:00 Sodium 133 mmol/L (136-145) L 09/26/21 05:12 Potassium 4.0 mmol/L (3.5-5.1) 09/26/21 05:12 Chloride 94 mmol/L (98-107) L 09/26/21 05:12 Carbon Dioxide 27 mmol/L (22-29) 09/26/21 05:12 Anion Gap 16.0 (5-19) 09/26/21 05:12 BUN 14 mg/dL (8-23) 09/26/21 05:12 Creatinine 0.6 mg/dL (0.5-0.9) 09/26/21 05:12 GFR Calculation Not Reportable 09/26/21 05:12 Glucose 104 mg/dL (65-115) 09/26/21 05:12 Calculated Osmolality 277 mOsm/kg (285-295) L 09/26/21 05:12 Calcium 8.9 mg/dL (8.5-10.5) 09/26/21 05:12 Magnesium 2.1 mg/dL (1.7-2.3) 09/26/21 05:12 Total Bilirubin 0.2 mg/dL (0.15-1.2) 03/08/22 05:12 AST 16 U/L (0-32) 09/26/21 05:12 ALT 19 U/L (0-33) 09/26/21 05:12 Alkaline Phosphatase 73 IU/L (35-105) 09/26/21 05:12 Troponin T Gen 5 ng/L 80 ng/L (0-10) H 09/26/21 05:12 Troponin T Baseline Cancelled 09/25/21 20:55 Troponin T 120 Minute 70.47 ng/L (0-10) H 09/25/21 18:34 Delta Troponin T -12.53 ABS# (0-10) L 09/25/21 18:34 Troponin T Hi Sens 6Hr 69.07 ng/L (0-10) H 09/25/21 22:30 Troponin T Hi Sens 6Hr Delta -13.93 ng/L (0-12) L 09/25/21 22:30 C-Reactive Protein 33.9 mg/L (0.0-4.9) H 09/25/21 16:22 NT-Pro-B Natriuret Pep 32979 pg/mL (0-450) H 09/25/21 16:22 Total Protein 6.7 g/dL (6.6-8.7) 09/26/21 05:12 Albumin 3.3 g/dL (3.5-5.2) L 09/26/21 05:12 Globulin 3.4 g/dL (1.3-4.6) 09/26/21 05:12 Procalcitonin 0.12 ng/mL (0-0.5) 09/25/21 18:34 TSH 1.49 uIU/mL (0.27-4.20) 09/25/21 20:55 Urine Color Yellow (Yellow) 09/25/21 20:30 Urine Appearance Clear (CLEAR) 09/25/21 20:30 Urine pH 5 (5-7) 09/25/21 20:30 Ur Specific Jarreau 1.020 (1.005-1.030) 09/25/21 20:30 Urine Protein 1+ (Negative) H 09/25/21 20:30 Urine Glucose (UA) Norm (Normal) 09/25/21 20:30 Urine Ketones Negative (Negative) 09/25/21 20:30 Urine Blood Neg (Negative) 09/25/21 20:30 Urine Nitrate Negative (Negative) 09/25/21 20:30 Urine Bilirubin Neg (Negative) 09/25/21 20:30 Urine Urobilinogen Norm mg/dL (Negative) 09/25/21 20:30 Ur Leukocyte Esterase Negative (Negative) 09/25/21 20:30 Urine RBC 0-4 /hpf (0-2) H 09/25/21 20:30 Urine WBC 0-4 /hpf (0-5) H 09/25/21 20:30 Ur Squamous Epith Cells 10-15 /hpf (0-5) H 09/25/21 20:30 Amorphous Sediment 1+ /hpf 09/25/21 20:30 Urine Bacteria 1+ /hpf (NONE) H 09/25/21 20:30 Hyaline Casts 5-10 /lpf H 09/25/21 20:30 Nasal Influ A H1 2009 PCR Not detected (NOT DETECT) 09/25/21 17:25 Coronavirus 229E (PCR) Not detected (NOT DETECT) 09/25/21 17:25 Influenza A (H1) PCR Not detected (NOT DETECT) 09/25/21 17:25 Influenza A (H3) PCR Not detected (NOT DETECT) 09/25/21 17:25 Influenza Type A Ag Cancelled 09/25/21 17:25 Influenza Type A (PCR) Not detected (NOT DETECT) 09/25/21 17:25 Influenza Type B Ag Cancelled 09/25/21 17:25 Influenza Type B (PCR) Not detected (NOT DETECT) 09/25/21 17:25 SARS-CoV-2 (PCR) Not detected (NOT DETECT) 09/25/21 17:25 EKG 1: My Interpretation: The EKG revealed sinus rhythm with a poor R wave progression. Nonspecific IVCD. Left anterior fascicular block. Nonspecific T wave changes. Minimal voltage criteria for LVH. EKG computer-generated impression: Chest X-Ray 09/25/21 17:10 IMPRESSION: 1. Patchy bilateral airspace infiltrates. 2. Small bilateral pleural effusions. 3. 2 radiodensities measuring approximately 2 and 2.4 cm in size are seen over the lower mid thorax, likely external to the patient, please correlate clinically. Chest CTA 09/25/21 19:38 IMPRESSION: 1. Mucous plugging with in the left apicoposterior bronchus with alveolar airspace disease in the affected segment suggesting postobstructive atelectasis/pneumonia in the left upper lobe. Recommend followup chest imaging to insure resolution of these findings. 2. Diffuse, bilateral moderately severe areas of ground-glass opacification in a random distribution in both lungs. Differential diagnosis includes asymmetric pulmonary edema versus an atypical pneumonia, including viral organisms. Again, recommend followup chest imaging to insure resolution of these findings. 3. Evaluation of peripheral pulmonary arteries is limited beyond the segmental level secondary to the phase of contrast enhancement. No filling defects in the central pulmonary arteries to suggest a large pulmonary embolism. 4. Moderate bilateral pleural effusions. 5. Incidental/nonacute findings are listed in the report. Echocardiogram A&P Assessment and plan (1) Aortic valve stenosis: Patient seems to have a severe low-grade aortic valve stenosis. Patient may require aortic valve surgery. For further evaluation of the aortic valve as well as the coronary arteries, a cardiac catheterization would be appropriate. Currently the patient not able to make a decision on this. I will be discussing this with the patient's family and final decision will be made afterwards. Status: Acute (2) Acute respiratory failure with hypoxia: Most likely the respiratory failure was secondary to congestive heart failure. The heart failure seems to be fairly compensated at this time. May continue on the current measures. Status: Acute (3) CHF exacerbation: Patient has LV ejection fraction of 30 to 35%. Most likely the aortic valve stenosis coupled with LV dysfunction might be causing the congestive heart failure. The etiology of the LV dysfunction is not clear. Possibility of underlying coronary ischemia causing LV dysfunction is a consideration. For further evaluation, patient may benefit from a cardiac catheterization. I will be discussing this with the patient's family and the decision will be made afterwards. I may start the patient on an CATHY inhibitor. He may be carefully treated with IV diuretics, spironolactone, low-dose beta-mary and other sy mptomatic measures. Status: Acute (4) HTN (hypertension): The blood pressure is currently normotensive. May continue on the current medications. Status: Acute (5) Anemia: Etiology is not clear at this time. Patient may require further work-up to identify the etiology. Status: Acute Plan Other problems are Possible pneumonia Obesity Degenerative joint disease I will be reviewing the echocardiogram. I may start the patient on losartan 25 mg p.o. daily, spironolactone 25 mg p.o. daily, metoprolol 12.5 mg p.o. twice daily. The blood pressure needs to be closely monitored. Based on the patient's clinical progress and the results of the above, further recommendations will be made. Thank you for the opportunity to evaluate this patient make these recommendations. Consult Attestations Medical Necessity Statement: Patient requires continued hospital stay for close monitoring and further management Coding Level of Care Code Acute Drilling Fluids Specialist for [facility] [place] Medical Decision Making High Complexity Diagnoses Acute respiratory failure with hypoxia J96.01 CHF exacerbation I50.9 Aortic valve stenosis I35.0 HTN (hypertension) I10 Anemia D64.9
[2021-09-27] VITALS (10 sets, daily range): BP systolic 107–132; BP diastolic 59–84; PULSE 74–109; RESP 16–24; TEMP 36.4–37; O2SAT 90–99
[2021-09-27 05:04] LABS: Basophils % 0.1 %; Eosinophils % 0.1 %; Hematocrit 32.3 % (37.0-47.0); Hemoglobin 10.3 g/dL (11.5-15.3); Lymphocytes % 17.7 %; Mean Corpuscular HGB Conc 31.9 g/dL (30.0-36.0); Mean Platelet Volume 10.1 fL (7.4-10.4); Monocytes # 0.9 10^3/uL (0.2-0.9); Monocytes % 5.2 %; Neutrophils # 12.68 10^3/uL (1.8-7.7); Neutrophils % 76.3 %; Nucleated Red Blood Cells % 0 %; Platelet Count 400 10^3/cmm (130-400); Red Blood Count 3.55 10^6/uL (4.1-5.3); Red Cell Distribution Width 13.9 % (12.1-15.1); White Blood Count 16.6 10^3/uL (4.0-10.0)
[2021-09-27 05:26] LABS: Anion Gap 14.3 (5-19); Blood Urea Nitrogen 20 mg/dL (8-23); Calcium 9.1 mg/dL (8.5-10.5); Carbon Dioxide 30 mmol/L (22-29); Chloride 95 mmol/L (98-107); Glucose 133 mg/dL (65-115); Osmolality Calculated 285 mOsm/kg (285-295); Potassium 4.3 mmol/L (3.5-5.1); Sodium 135 mmol/L (136-145)
--- NOTE | 2021-09-27 06:35 | PC.NURSE ---
Shift Note Frequent safety and comfort rounds continue. Orders and/or nursing care completed as indicated. Patient monitored for response to intervention and treatment(s). Education provided includes oxygen therapy. Patient and/or digital sales representative verbalizes understanding. Will continue to monitor.
[2021-09-27] MEDS: azithromycin 250 mg Tablet 500 MG PO (08:40)
[2021-09-27] MEDS: FUROsemide 20 mg Tablet PO (08:40)
[2021-09-27] MEDS: sennosides-docusate Tablet 1 TAB PO (08:41)
[2021-09-27] MEDS: guaiFENesin 600 mg Tablet 1200 MG PO ×2 (08:41→18:18)
[2021-09-27] MEDS: predniSONE 20 mg Tablet 40 MG PO (08:41)
[2021-09-27] MEDS: metoprolol tartrate 25 mg Tablet 12.5 MG PO ×2 (08:41→18:18)
[2021-09-27] MEDS: cefTRIAXone 1,000 MG in sodium chloride 0.9% (plus) 50 ML 100 MG IV (08:41)
[2021-09-27] MEDS: losartan 50 mg Tablet 25 MG PO (08:41)
[2021-09-27] MEDS: spironolactone 25 mg Tablet PO (08:41)
--- NOTE | 2021-09-27 08:49 | PM.PN ---
Subjective Subjective: Leukocytosis noted, currently on 2 L nasal cannula, appreciate cardiology recommendations Patient is stating that she would like to get everything fixed, most likely she will opt for coronary angiogram but would like to discuss with her daughter who is coming in next 2 hours She is very agitated because of lack of sleep and adult services librarian blood draws Vitals/I&O/Wt Last Vital Signs Temp 98.0 F 09/27/21 08:00 Pulse 109 H 09/27/21 08:00 Resp 18 09/27/21 08:00 BP 132/84 09/27/21 08:00 Pulse Ox 92 09/27/21 08:00 09/26/21 09/27/21 09/27/21 22:59 06:59 14:59 Intake Total 60 / 110 240 / 350 Output Total 4400 / 5600 5100 / 67390 Balance -4340 / -5490 -4860 / -43960 Weight last 48 hrs Weight 79.696 kg Weight 58.967 kg Physical Exam Narrative: Patient is laying semi-Oakes position 2 L nasal cannula No active chest pain No active wheezing crackles or rhonchi Abdomen soft Looks euvolemic today Yellow urine in the bag Abdomen soft No active chest pain Nonfocal neuro exam Awake and alert Urinary Catheter Management: Mo: Cath Placed During This Visit: yes Reason for Continuing Indwelling Catheter: Acute Urinary Retention or Obstruction Urinary Catheter Date of Insertion: 09/25/21 Urinary Catheter Time of Insertion: 20:29 Data : 09/27/21 04:25 09/27/21 04:25 A&P Assessment and plan (1) Anemia: Status: Acute (2) HTN (hypertension): Status: Acute (3) Aortic valve stenosis: Status: Acute (4) Acute respiratory failure with hypoxia: Status: Acute (5) Mucus plugging of bronchi: Status: Acute (6) Respiratory failure: Status: Acute (7) CHF exacerbation: Status: Acute (8) Pneumonia: Status: Acute Plan Mucous plug CTA did not show any PE, mucous plug Chest vest therapy Mucolytic's Leukocytosis No fever Continue antibiotics Acute hypoxia Currently doing well on 2 L nasal cannula No signs of PE Covid PCR negative Likely related to underlying community-acquired pneumonia Acute systolic CHF exacerbation Grade 2 diastolic dysfunction EF 30 to 35% Severe Cardiology consulted yesterday Patient might opt for coronary angiogram and aortic valve replacement, waiting for her daughter to come in to discuss Full code Cardiac diet DVT prophylaxis Lovenox Currently on ceftriaxone azithromycin Changed to p.o. Levaquin by tomorrow if leukocytosis improved, discontinue steroids Attestations Medical Necessity Statement*: Continue hospitalization Time Spent in Patient Care: 30min Coding Level of Care Code Acute Switchboard Operator Supervisor for Chg Fwd Diagnoses Anemia D64.9 HTN (hypertension) I10 Aortic valve stenosis I35.0 Acute respiratory failure with hypoxia J96.01 Mucus plugging of bronchi T17.500A Respiratory failure J96.90 CHF exacerbation I50.9 Pneumonia J18.9
[2021-09-27] MEDS: ipratropium-albuterol 3 mL Neb INHALATION (08:50)
[2021-09-27] MEDS: enoxaparin 40 mg/0.4 mL Syringe SUBCUT (11:08)
[2021-09-27] MEDS: morphine 4 mg/mL SDV 1 mL 1 MG IVP (11:49)
[2021-09-27] MEDS: FUROsemide 10 mg/mL SDV 4mL 40 MG IVP ×2 (14:56→21:26)
[2021-09-27] MEDS: potassium chloride ER 20 mEq Tablet 40 MEQ PO (14:56)
--- NOTE | 2021-09-27 19:17 | P.PN_ITS ---
Subjective Subjective: Patient he is doing okay. Denies any chest pain or chest tightness. No shortness of breath. Vitals/I&O/Wt Last Vital Signs Temp 98.6 F 09/27/21 16:00 Pulse 79 09/27/21 16:00 Resp 18 09/27/21 16:00 BP 109/59 09/27/21 16:00 Pulse Ox 90 09/27/21 16:00 09/27/21 09/27/21 09/27/21 06:59 14:59 22:59 Intake Total 240 / 350 530 / 530 240 / 770 Output Total 5100 / 39660 750 / 750 Balance -4860 / -52628 530 / 530 -510 / 20 Weight last 48 hrs Weight 175 lb 11.2 oz Physical Exam Narrative: GENERAL: The patient is alert and oriented times three. Not in any acute distress. HEENT: No significant pallor, icterus or lymphadenopathy.Oral cavity: There are no mucous membrane lesions. NECK: Trachea appears to be central. No masses noted. No JVD or thyromegaly appreciated. RESPIRATORY: Chest is symmetrical. No intercostals muscle retraction or any accessory muscle activation. There is no chest wall tenderness. Breath sounds are heard bilaterally. Scattered fine rales bilaterally at the bases. No evidence of any consolidation. BREASTS: Deferred. HEART: The heart sounds are normal. No S3 or S4. Ejection Stolle murmur grade 4/6 in the aortic area. No diastolic murmurs.. No pericardial rub ABDOMEN: No vessel pulsations or distention. No tenderness. No organomegaly appreciated. Bowel sounds are normally heard. : Deferred. RECTAL: Deferred. LYMPHATIC: No lymphadenopathy noted in the neck or groin. EXTREMITIES: 1+ edema both lower extremities. No cyanosis. MUSCULOSKELETAL: No acute joint deformities or swelling SKIN: There are no significant rashes or ecchymosis NEUROPSYCHIATRIC: The patient is alert and oriented x3. Appears to be in a good mood. No tremors or rigidity noted. Urinary Catheter Management: Mo: Cath Placed During This Visit: yes Reason for Continuing Indwelling Catheter: Accurate Measurement of Urinary Output in Critically Ill Patients Urinary Catheter Date of Insertion: 09/25/21 Urinary Catheter Time of Insertion: 20:29 Data : 09/27/21 04:25 09/27/21 04:25 Other Labs: Laboratory Last Values WBC 16.6 10^3/uL (4.0-10.0) H 09/27/21 04:25 RBC 3.55 10^6/uL (4.1-5.3) L 09/27/21 04:25 Hgb 10.3 g/dL (11.5-15.3) L 09/27/21 04:25 Hct 32.3 % (37.0-47.0) L 09/27/21 04:25 MCV 91.0 fl (81-99) 09/27/21 04:25 MCH 29.0 pg (28.0-34.0) 09/27/21 04:25 MCHC 31.9 g/dL (30.0-36.0) 09/27/21 04:25 RDW 13.9 % (12.1-15.1) 09/27/21 04:25 Plt Count 400 10^3/cmm (130-400) 09/27/21 04:25 MPV 10.1 fL (7.4-10.4) 09/27/21 04:25 Neut % (Auto) 76.3 % 09/27/21 04:25 Lymph % (Auto) 17.7 % 09/27/21 04:25 Cross % (Auto) 5.2 % 09/27/21 04:25 Eos % (Auto) 0.1 % 09/27/21 04:25 Baso % (Auto) 0.1 % 09/27/21 04:25 Neut # (Auto) 12.68 10^3/uL (1.8-7.7) H 09/27/21 04:25 Lymph # (Auto) 3.0 10^3/uL (0.8-4.8) 09/27/21 04:25 Cross # (Auto) 0.9 10^3/uL (0.2-0.9) 09/27/21 04:25 Eos # (Auto) 0.0 10^3/uL (0.0-0.8) 09/27/21 04:25 Baso # (Auto) 0.0 10^3/uL (0.0-0.1) 09/27/21 04:25 Nucleated RBC % (auto) 0 % 09/27/21 04:25 Nucleated RBCs # 0.0 /100WBC 09/27/21 04:25 Specimen Type Arterial 09/26/21 05:00 Sample Site Radial, left 09/26/21 05:00 ABG pH 7.46 (7.35-7.45) H 09/26/21 05:00 ABG pCO2 39.8 mmHg (35-45) 09/26/21 05:00 ABG pO2 119.0 mmHg (80.0-100.0) H 09/26/21 05:00 ABG HCO3 28.1 mmol/L (22-26) H 09/26/21 05:00 ABG Base Excess 4.0 mmol/L (-2.0-2.0) H 09/26/21 05:00 Solitario Test Pos 09/26/21 05:00 Hematocrit 32.8 % (37-47) L 09/26/21 05:00 O2 Delivery Device Bipap 09/26/21 05:00 FiO2 40.0 % 09/26/21 05:00 PEEP 6.0 cmH20 09/26/21 05:00 Technology Integration Specialist ID Hensa 09/26/21 05:00 Sodium 135 mmol/L (136-145) L 09/27/21 04:25 Potassium 4.3 mmol/L (3.5-5.1) 09/27/21 04:25 Chloride 95 mmol/L (98-107) L 09/27/21 04:25 Carbon Dioxide 30 mmol/L (22-29) H 09/27/21 04:25 Anion Gap 14.3 (5-19) 09/27/21 04:25 BUN 20 mg/dL (8-23) 09/27/21 04:25 Creatinine 0.7 mg/dL (0.5-0.9) 09/27/21 04:25 GFR Calculation Not Reportable 09/27/21 04:25 Glucose 133 mg/dL (65-115) H 09/27/21 04:25 Calculated Osmolality 285 mOsm/kg (285-295) 09/27/21 04:25 Calcium 9.1 mg/dL (8.5-10.5) 09/27/21 04:25 Magnesium 2.1 mg/dL (1.7-2.3) 09/26/21 05:12 Total Bilirubin 0.2 mg/dL (0.15-1.2) 03/08/22 05:12 AST 16 U/L (0-32) 09/26/21 05:12 ALT 19 U/L (0-33) 09/26/21 05:12 Alkaline Phosphatase 73 IU/L (35-105) 09/26/21 05:12 Troponin T Gen 5 ng/L 80 ng/L (0-10) H 09/26/21 05:12 Troponin T Baseline Cancelled 09/25/21 20:55 Troponin T 120 Minute 70.47 ng/L (0-10) H 09/25/21 18:34 Delta Troponin T -12.53 ABS# (0-10) L 09/25/21 18:34 Troponin T Hi Sens 6Hr 69.07 ng/L (0-10) H 09/25/21 22:30 Troponin T Hi Sens 6Hr Delta -13.93 ng/L (0-12) L 09/25/21 22:30 C-Reactive Protein 33.9 mg/L (0.0-4.9) H 09/25/21 16:22 NT-Pro-B Natriuret Pep 97420 pg/mL (0-450) H 09/25/21 16:22 Total Protein 6.7 g/dL (6.6-8.7) 09/26/21 05:12 Albumin 3.3 g/dL (3.5-5.2) L 09/26/21 05:12 Globulin 3.4 g/dL (1.3-4.6) 09/26/21 05:12 Procalcitonin 0.12 ng/mL (0-0.5) 09/25/21 18:34 TSH 1.49 uIU/mL (0.27-4.20) 09/25/21 20:55 Urine Color Yellow (Yellow) 09/25/21 20:30 Urine Appearance Clear (CLEAR) 09/25/21 20:30 Urine pH 5 (5-7) 09/25/21 20:30 Ur Specific [place] 1.020 (1.005-1.030) 09/25/21 20:30 Urine Protein 1+ (Negative) H 09/25/21 20:30 Urine Glucose (UA) Norm (Normal) 09/25/21 20:30 Urine Ketones Negative (Negative) 09/25/21 20:30 Urine Blood Neg (Negative) 09/25/21 20:30 Urine Nitrate Negative (Negative) 09/25/21 20:30 Urine Bilirubin Neg (Negative) 09/25/21 20:30 Urine Urobilinogen Norm mg/dL (Negative) 09/25/21 20:30 Ur Leukocyte Esterase Negative (Negative) 09/25/21 20:30 Urine RBC 0-4 /hpf (0-2) H 09/25/21 20:30 Urine WBC 0-4 /hpf (0-5) H 09/25/21 20:30 Ur Squamous Epith Cells 10-15 /hpf (0-5) H 09/25/21 20:30 Amorphous Sediment 1+ /hpf 09/25/21 20:30 Urine Bacteria 1+ /hpf (NONE) H 09/25/21 20:30 Hyaline Casts 5-10 /lpf H 09/25/21 20:30 Nasal Influ A H1 2009 PCR Not detected (NOT DETECT) 09/25/21 17:25 Coronavirus 229E (PCR) Not detected (NOT DETECT) 09/25/21 17:25 Influenza A (H1) PCR Not detected (NOT DETECT) 09/25/21 17:25 Influenza A (H3) PCR Not detected (NOT DETECT) 09/25/21 17:25 Influenza Type A Ag Cancelled 09/25/21 17:25 Influenza Type A (PCR) Not detected (NOT DETECT) 09/25/21 17:25 Influenza Type B Ag Cancelled 09/25/21 17:25 Influenza Type B (PCR) Not detected (NOT DETECT) 09/25/21 17:25 SARS-CoV-2 (PCR) Not detected (NOT DETECT) 09/25/21 17:25 Micro: Microbiology 09/26/21 08:45 MRSA Culture - Final Nose A&P Assessment and plan (1) Aortic valve stenosis: Patient seems to have a severe low-grade aortic valve stenosis. Patient may require aortic valve surgery. For further evaluation of the aortic valve as well as the coronary arteries, a cardiac catheterization would be appropriate. Currently the patient not able to make a decision on this. I will be discussing this with the patient's family and final decision will be made afterwards The patient is being treated for pneumonia. She also has an anemia which has not been addressed. We may consider further cardiac work-up after treating the infection and also after appropriate work-up of the anemia. Status: Acute (2) Acute respiratory failure with hypoxia: Most likely the respiratory failure was secondary to congestive heart failure. The heart failure seems to be fairly compensated at this time. May continue on the current measures. Status: Acute (3) CHF exacerbation: Patient has LV ejection fraction of 30 to 35%. Most likely the aortic valve stenosis coupled with LV dysfunction might be causing the congestive heart failure. The etiology of the LV dysfunction is not clear. Possibility of underlying coronary ischemia causing LV dysfunction is a consideration. For further evaluation, patient may benefit from a cardiac catheterization. I discussed with the patient daughter about her current condition and the further management options. Once infection is appropriately treated and also after having some basic evaluation for the anemia we may consider going ahead with a cardiac work-up. Status: Acute (4) HTN (hypertension): The blood pressure is currently normotensive. May continue on the current medications. Status: Acute (5) Anemia: Etiology is not clear at this time. Patient may require further work-up to identify the etiology. Status: Acute Plan Other problems are Possible pneumonia Obesity Degenerative joint disease May continue on the current medications for the time being. Electrolytes need to be closely monitored. Attestations Medical Necessity Statement*: Patient requires continued hospital stay for close monitoring and further management Coding Level of Care Code Acute Warehouse Packer for Renetta Fwlevon History Detailed Exam Detailed Medical Decision Making Moderate Complexity Diagnoses Aortic valve stenosis I35.0 Acute respiratory failure with hypoxia J96.01 CHF exacerbation I50.9 HTN (hypertension) I10 Anemia D64.9
[2021-09-28] VITALS (16 sets, daily range): BP systolic 100–150; BP diastolic 59–91; PULSE 43–89; RESP 13–38; TEMP 36.3–36.7; O2SAT 83–97
--- NOTE | 2021-09-28 02:00 | PC.NURSE ---
Patient put on calllight. Asked this RN what she needs to do if she is having surgery in am and has not pooped. This RN educated patient that she had received stool softners and she did not have to have a BM to have surgery as it was cardiac related. Patient then called LIQUID LOADER later telling her this RN told her to poop in the bed and we would clean it up. Patient was then re-educated that she was not told that but if she did have an accident that we would indeed make sure she was clean. Will monitor.
[2021-09-28 05:56] LABS: Basophils % 0.1 %; Eosinophils % 0.1 %; Hematocrit 33.9 % (37.0-47.0); Hemoglobin 10.5 g/dL (11.5-15.3); Lymphocytes % 26.1 %; Mean Corpuscular Hemoglobin 28.5 pg (28.0-34.0); Mean Corpuscular Volume 92.1 fl (81-99); Mean Platelet Volume 10.2 fL (7.4-10.4); Monocytes # 1.5 10^3/uL (0.2-0.9); Monocytes % 6.3 %; Neutrophils # 15.38 10^3/uL (1.8-7.7); Neutrophils % 66.5 %; Nucleated Red Blood Cells % 0 %; Platelet Count 509 10^3/cmm (130-400); Red Blood Count 3.68 10^6/uL (4.1-5.3); Red Cell Distribution Width 14.2 % (12.1-15.1); White Blood Count 23.1 10^3/uL (4.0-10.0)
[2021-09-28 06:17] LABS: Anion Gap 18.6 (5-19); Blood Urea Nitrogen 35 mg/dL (8-23); Calcium 9.1 mg/dL (8.5-10.5); Carbon Dioxide 26 mmol/L (22-29); Chloride 92 mmol/L (98-107); Glucose 138 mg/dL (65-115); Osmolality Calculated 282 mOsm/kg (285-295); Potassium 5.6 mmol/L (3.5-5.1); Sodium 131 mmol/L (136-145)
[2021-09-28] MEDS: FUROsemide 10 mg/mL SDV 4mL 40 MG IVP (06:41)
[2021-09-28 07:10] LABS: Slide Review Slide Review Perform
[2021-09-28 08:03] LABS: Ferritin 768 ng/mL (15-150); Iron 26 ug/dL (37-145); Percent Saturation 11.3 % (20-50); Total Iron Binding Capacity 230 mcg/dl; Unsaturated Iron Binding 204 ug/dL (112-347)
[2021-09-28 08:18] LABS: Vitamin B12 607 pg/mL (232-1245)
[2021-09-28 08:22] LABS: Folate Level 17.5 ng/mL (4.8-37.3)
--- NOTE | 2021-09-28 09:02 | P.PN_ITS ---
Subjective Subjective: `? Dr. Short recommended anemia work-up before advancing with coronary angiogram as there is no acute indication Patient is agreeable Nurse updated to advance her diet We will do iron studies B12, FOBT During this hospitalization hemoglobin has been stable around 10.5, Vitals/I&O/Wt Last Vital Signs Temp 98.0 F 09/28/21 04:00 Pulse 79 09/28/21 08:00 Resp 13 09/28/21 08:00 BP 114/78 09/28/21 08:00 Pulse Ox 92 09/28/21 08:00 09/27/21 09/28/21 09/28/21 22:59 06:59 14:59 Intake Total 360 / 890 900 / 1790 Output Total 2800 / 2800 2750 / 5550 Balance -2440 / -1910 -1850 / -3760 Physical Exam Narrative: Patient is endorsing feeling weak and lethargic however nonfocal neuro exam Saturating well on 2.5 L nasal cannula Saturating 90% S1, S2, systolic murmur He looks euvolemic Abdomen soft Bilateral breath sound with mild rhonchi Patient is awake and alert Nonfocal neuro exam Appropriate mood and affect Urinary Catheter Management: Mo: Cath Placed During This Visit: yes Reason for Continuing Indwelling Catheter: Accurate Measurement of Urinary Outpu t in Critically Ill Patients Urinary Catheter Date of Insertion: 09/25/21 Urinary Catheter Time of Insertion: 20:29 Data : 09/28/21 05:16 09/28/21 05:16 Micro: Microbiology 09/26/21 08:45 MRSA Culture - Final Nose A&P Assessment and plan (1) Anemia: Status: Acute (2) HTN (hypertension): Status: Acute (3) Aortic valve stenosis: Status: Acute (4) Acute respiratory failure with hypoxia: Status: Acute (5) Mucus plugging of bronchi: Status: Acute (6) Respiratory failure: Status: Acute (7) CHF exacerbation: Status: Acute (8) Pneumonia: Status: Acute (9) Acute hyperkalemia: Status: Acute Plan Acute new onset CHF exacerbation Low EF Systolic CHF Looks euvolemic today Diuretic on hold Normocytic anemia Dosing weight loss No previous colonoscopies Check FOBT Iron, B12 level Hemoglobin has been stable, hemodynamically stable We can plan for coronary angiogram tomorrow after FOBT result, her hemoglobin has stayed stable, I do not suspect ongoing blood loss, Mucous plug with pneumonia with acute hypoxia Respiratory failure has improved no conversational dyspnea, work of breathing has improved with use of BiPAP and diuresis Continue ceftriaxone azithromycin Leukocytosis noted Currently on 2.5 L cannula Oxygen requirement has not worsened Afebrile Cultures negative to date Critical pneumonia Acute hyperkalemia secondary to drugs Hold CATHY and Spironolactone We will give her Kayexalate She was given extra dose of potassium as well by hearing impaired itinerant teacher yesterday We will keep her n.p.o. after midnight Full code PT evaluation Hold on Lasix We will touch base with Dr. Han Espinal Medical Necessity Statement*: Continue hospitalization Time Spent in Patient Care: 20min Coding Level of Care Code Acute Deck Mechanic for Chg Fwd Diagnoses Anemia D64.9 HTN (hypertension) I10 Aortic valve stenosis I35.0 Acute respiratory failure with hypoxia J96.01 Mucus plugging of bronchi T17.500A Respiratory failure J96.90 CHF exacerbation I50.9 Pneumonia J18.9 Acute hyperkalemia E87.5
[2021-09-28] MEDS: metoprolol tartrate 25 mg Tablet 12.5 MG PO ×2 (09:04→17:48)
[2021-09-28] MEDS: sodium polystyrene sulfonate 15 gm/60 mL Btl PO (09:04)
[2021-09-28] MEDS: guaiFENesin 600 mg Tablet 1200 MG PO ×2 (09:04→17:48)
[2021-09-28] MEDS: azithromycin 250 mg Tablet 500 MG PO (09:04)
[2021-09-28] MEDS: cefTRIAXone 1,000 MG in sodium chloride 0.9% (plus) 50 ML 100 MG IV (09:07)
[2021-09-28] MEDS: sennosides-docusate Tablet 1 TAB PO (09:09)
--- NOTE | 2021-09-28 09:36 | P.PN_ITS ---
Subjective Subjective: Patient continues to feel better. Currently she is on oxygen of 2.5L/min with a nasal cannula. She is not ambulating much. She is still complaining of constipation and has not had a bowel movement for more than a week. Denies any fever or chills. Medications: Medication Review Details: Current Medications Acetaminophen (Acetaminophen 500 Mg Tablet) 500 mg PO Q4H PRN PRN Reason: fever Albuterol/Ipratropium (Ipratropium-Albuterol 3 Ml Neb) 3 ml INHALATION Q6H PRN PRN Reason: SHORTNESS OF BREATH Last Admin: 09/27/21 08:50 Dose: 3 ml Documented by: Azithromycin (Azithromycin 250 Mg Tablet) 500 mg PO DAILY [facility] [place]; Protocol Last Admin: 09/28/21 09:04 Dose: 500 mg Documented by: Enoxaparin Sodium (Enoxaparin 40 Mg/0.4 Ml Syringe) 40 mg SUBCUT Q24H [facility] [place] Last Admin: 09/27/21 11:08 Dose: 40 mg Documented by: Guaifenesin (Guaifenesin 600 Mg Tablet) 1,200 mg PO BID [facility] [place] Last Admin: 09/28/21 09:04 Dose: 1,200 mg Documented by: Ceftriaxone Sodium 1,000 mg/ (Sodium Chloride) 50 mls @ 100 mls/hr IV DAILY [facility] [place]; Protocol Last Admin: 09/28/21 09:07 Dose: 100 mls/hr Documented by: Losartan Potassium (Losartan 50 Mg Tablet) 25 mg PO DAILY [facility] [place] Last Admin: 09/27/21 08:41 Dose: 25 mg Documented by: Metoprolol Tartrate (Metoprolol Tartrate 25 Mg Tablet) 12.5 mg PO BID [facility] [place] Last Admin: 09/28/21 09:04 Dose: 12.5 mg Documented by: Senna/Docusate Sodium (Sennosides-Docusate Tablet) 1 tab PO DAILY [facility] [place] Last Admin: 09/28/21 09:09 Dose: 1 tab Documented by: Spironolactone (Spironolactone 25 Mg Tablet) 25 mg PO DAILY [facility] [place] Last Admin: 09/27/21 08:41 Dose: 25 mg Documented by: Vitals/I&O/Wt Last Vital Signs Temp 98.0 F 09/28/21 04:00 Pulse 79 09/28/21 08:00 Resp 13 09/28/21 08:00 BP 114/78 03/10/22 08:00 Pulse Ox 92 09/28/21 08:00 09/27/21 09/28/21 09/28/21 22:59 06:59 14:59 Intake Total 360 / 890 900 / 1790 Output Total 2800 / 2800 2750 / 5550 Balance -2440 / -1910 -1850 / -3760 Physical Exam Narrative: GENERAL: The patient is alert and oriented times three. Not in any acute distress. HEENT: No significant pallor, icterus or lymphadenopathy.Oral cavity: There are no mucous membrane lesions. NECK: Trachea appears to be central. No masses noted. No JVD or thyromegaly appreciated. RESPIRATORY: Chest is symmetrical. No intercostals muscle retraction or any accessory muscle activation. There is no chest wall tenderness. Breath sounds are heard bilaterally.? Scattered fine rales bilaterally at the bases.? No ev idence of any consolidation. BREASTS: Deferred. HEART: The heart sounds are normal.? No S3 or S4. ? Ejection Stolle murmur grade 4/6 in the aortic area.? No diastolic murmurs..? No pericardial rub ABDOMEN: No vessel pulsations or distention. No tenderness. No organomegaly appreciated.? Bowel sounds are normally heard. : Deferred. RECTAL: Deferred. LYMPHATIC: No lymphadenopathy noted in the neck or groin. EXTREMITIES: 1+ edema both lower extremities.? No cyanosis. Peripheral pulses are palpable but very weak bilaterally MUSCULOSKELETAL: No acute joint deformities or swelling SKIN: There are no significant rashes or ecchymosis NEUROPSYCHIATRIC: The patient is alert and oriented x3. Appears to be in a good mood. No tremors or rigidity noted. Urinary Catheter Management: Mo: Cath Placed During This Visit: yes Reason for Continuing Indwelling Catheter: Accurate Measurement of Urinary Output in Critically Ill Patients Urinary Catheter Date of Insertion: 09/25/21 Urinary Catheter Time of Insertion: 20:29 Data : 09/28/21 05:16 09/28/21 05:16 Other Labs: Laboratory Last Values WBC 23.1 10^3/uL (4.0-10.0) H 09/28/21 05:16 RBC 3.68 10^6/uL (4.1-5.3) L 09/28/21 05:16 Hgb 10.5 g/dL (11.5-15.3) L 09/28/21 05:16 Hct 33.9 % (37.0-47.0) L 09/28/21 05:16 MCV 92.1 fl (81-99) 09/28/21 05:16 MCH 28.5 pg (28.0-34.0) 09/28/21 05:16 MCHC 31.0 g/dL (30.0-36.0) 09/28/21 05:16 RDW 14.2 % (12.1-15.1) 09/28/21 05:16 Plt Count 509 10^3/cmm (130-400) H 09/28/21 05:16 MPV 10.2 fL (7.4-10.4) 09/28/21 05:16 Neut % (Auto) 66.5 % 09/28/21 05:16 Lymph % (Auto) 26.1 % 09/28/21 05:16 [place] % (Auto) 6.3 % 09/28/21 05:16 Eos % (Auto) 0.1 % 09/28/21 05:16 Baso % (Auto) 0.1 % 09/28/21 05:16 Neut # (Auto) 15.38 10^3/uL (1.8-7.7) H 09/28/21 05:16 Lymph # (Auto) 6.0 10^3/uL (0.8-4.8) H 09/28/21 05:16 [place] # (Auto) 1.5 10^3/uL (0.2-0.9) H 09/28/21 05:16 Eos # (Auto) 0.0 10^3/uL (0.0-0.8) 09/28/21 05:16 Baso # (Auto) 0.0 10^3/uL (0.0-0.1) 09/28/21 05:16 Nucleated RBC % (auto) 0 % 09/28/21 05:16 Nucleated RBCs # 0.0 /100WBC 09/28/21 05:16 Specimen Type Arterial 09/26/21 05:00 Sample Site Radial, left 09/26/21 05:00 ABG pH 7.46 (7.35-7.45) H 09/26/21 05:00 ABG pCO2 39.8 mmHg (35-45) 09/26/21 05:00 ABG pO2 119.0 mmHg (80.0-100.0) H 09/26/21 05:00 ABG HCO3 28.1 mmol/L (22-26) H 09/26/21 05:00 ABG Base Excess 4.0 mmol/L (-2.0-2.0) H 09/26/21 05:00 Solitario Test Pos 09/26/21 05:00 Hematocrit 32.8 % (37-47) L 09/26/21 05:00 O2 Delivery Device Bipap 09/26/21 05:00 FiO2 40.0 % 09/26/21 05:00 PEEP 6.0 cmH20 09/26/21 05:00 Missile Tracking Technician ID Hensa 09/26/21 05:00 Sodium 131 mmol/L (136-145) L 09/28/21 05:16 Potassium 5.6 mmol/L (3.5-5.1) H 09/28/21 05:16 Chloride 92 mmol/L (98-107) L 09/28/21 05:16 Carbon Dioxide 26 mmol/L (22-29) 09/28/21 05:16 Anion Gap 18.6 (5-19) 09/28/21 05:16 BUN 35 mg/dL (8-23) H 09/28/21 05:16 Creatinine 0.8 mg/dL (0.5-0.9) 09/28/21 05:16 GFR Calculation Not Reportable 09/28/21 05:16 Glucose 138 mg/dL (65-115) H 09/28/21 05:16 Calculated Osmolality 282 mOsm/kg (285-295) L 09/28/21 05:16 Calcium 9.1 mg/dL (8.5-10.5) 09/28/21 05:16 Magnesium 2.1 mg/dL (1.7-2.3) 09/26/21 05:12 Iron 26 ug/dL (37-145) L 09/28/21 05:16 TIBC 230 mcg/dl 09/28/21 05:16 % Saturation 11.3 % (20-50) L 09/28/21 05:16 Unsat Iron Binding 204 ug/dL (112-347) 09/28/21 05:16 Ferritin 768 ng/mL (15-150) H 09/28/21 05:16 Total Bilirubin 0.2 mg/dL (0.15-1.2) 09/26/21 05:12 AST 16 U/L (0-32) 09/26/21 05:12 ALT 19 U/L (0-33) 09/26/21 05:12 Alkaline Phosphatase 73 IU/L (35-105) 09/26/21 05:12 Troponin T Gen 5 ng/L 80 ng/L (0-10) H 09/26/21 05:12 Troponin T Baseline Cancelled 09/25/21 20:55 Troponin T 120 Minute 70.47 ng/L (0-10) H 09/25/21 18:34 Delta Troponin T -12.53 ABS# (0-10) L 09/25/21 18:34 Troponin T Hi Sens 6Hr 69.07 ng/L (0-10) H 09/25/21 22:30 Troponin T Hi Sens 6Hr Delta -13.93 ng/L (0-12) L 09/25/21 22:30 C-Reactive Protein 33.9 mg/L (0.0-4.9) H 09/25/21 16:22 NT-Pro-B Natriuret Pep 86280 pg/mL (0-450) H 09/25/21 16:22 Total Protein 6.7 g/dL (6.6-8.7) 09/26/21 05:12 Albumin 3.3 g/dL (3.5-5.2) L 09/26/21 05:12 Globulin 3.4 g/dL (1.3-4.6) 09/26/21 05:12 Vitamin B12 607 pg/mL (232-1245) 09/28/21 05:16 Folate 17.5 ng/mL (4.8-37.3) 09/28/21 05:16 Procalcitonin 0.12 ng/mL (0-0.5) 09/25/21 18:34 TSH 1.49 uIU/mL (0.27-4.20) 09/25/21 20:55 Urine Color Yellow (Yellow) 09/25/21 20:30 Urine Appearance Clear (CLEAR) 09/25/21 20:30 Urine pH 5 (5-7) 09/25/21 20:30 Ur Specific [place] 1.020 (1.005-1.030) 09/25/21 20:30 Urine Protein 1+ (Negative) H 09/25/21 20:30 Urine Glucose (UA) Norm (Normal) 09/25/21 20:30 Urine Ketones Negative (Negative) 09/25/21 20:30 Urine Blood Neg (Negative) 09/25/21 20:30 Urine Nitrate Negative (Negative) 09/25/21 20: Urine Bilirubin Neg (Negative) 09/25/21 20:30 Urine Urobilinogen Norm mg/dL (Negative) 09/25/21 20:30 Ur Leukocyte Esterase Negative (Negative) 09/25/21 20:30 Urine RBC 0-4 /hpf (0-2) H 09/25/21 20:30 Urine WBC 0-4 /hpf (0-5) H 09/25/21 20:30 Ur Squamous Epith Cells 10-15 /hpf (0-5) H 09/25/21 20:30 Amorphous Sediment 1+ /hpf 09/25/21 20:30 Urine Bacteria 1+ /hpf (NONE) H 09/25/21 20:30 Hyaline Casts 5-10 /lpf H 09/25/21 20:30 Nasal Influ A H1 2009 PCR Not detected (NOT DETECT) 09/25/21 17:25 Coronavirus 229E (PCR) Not detected (NOT DETECT) 09/25/21 17:25 Influenza A (H1) PCR Not detected (NOT DETECT) 09/25/21 17:25 Influenza A (H3) PCR Not detected (NOT DETECT) 09/25/21 17:25 Influenza Type A Ag Cancelled 09/25/21 17:25 Influenza Type A (PCR) Not detected (NOT DETECT) 09/25/21 17:25 Influenza Type B Ag Cancelled 09/25/21 17:25 Influenza Type B (PCR) Not detected (NOT DETECT) 09/25/21 17:25 SARS-CoV-2 (PCR) Not detected (NOT DETECT) 09/25/21 17:25 Micro: Microbiology 09/26/21 08:45 MRSA Culture - Final Nose A&P Assessment and plan (1) Aortic valve stenosis: The patient has echocardiogram evidence of severe multilevel aortic valve stenosis. This needs to be further evaluated. We may had to wait till the pneumonia is properly treated. She also may need a work-up for the anemia/constipation Status: Acute (2) CHF exacerbation: Patient may be over diuresed today. I may add back on the dose of the Lasix to 40 mg once a day. Electrolytes need to be closely monitored Status: Acute (3) Acute respiratory failure with hypoxia: Most likely the respiratory failure was secondary to congestive heart failure, coupled with pneumonia The heart failure seems to be fairly compensated at this time. Because of increasing BUN/creatinine ratio, I may cut back on the dose of Lasix to 40 mg daily. Because of the hyperkalemia the potassium may be held at this point. Status: Acute (4) HTN (hypertension): The blood pressure is currently normotensive. May continue on the current medications. Status: Acute (5) Anemia: Etiology is not clear at this time. Patient may require further work-up to identify the etiology. Status: Acute Plan Other problems are Possible pneumonia Obesity Hyperkalemia Worsening leukocytosis Degenerative joint disease Management of the pneumonia as per the primary attending I may cut back on the dose of the Lasix to 40 mg p.o. daily. Potassium may be held at this point Attestations Medical Necessity Statement*: Patient requires continued hospital stay for close monitoring and further management Coding Level of Care Code Acute Belt Builder for Renetta Fwlevon History Detailed Exam Detailed Medical Decision Making Moderate Complexity Diagnoses Aortic valve stenosis I35.0 Acute respiratory failure with hypoxia J96.01 CHF exacerbation I50.9 HTN (hypertension) I10 Anemia D64.9
[2021-09-28] MEDS: ipratropium-albuterol 3 mL Neb INHALATION ×2 (11:18→20:25)
--- NOTE | 2021-09-28 11:18 | PC.NURSE ---
I reported the vitals to the nurse. 43hr 90o2
[2021-09-28] MEDS: magnesium hydroxide 30 mL UDC 15 ML PO (13:37)
--- NOTE | 2021-09-28 14:00 | PC.SOCIAL ---
Pg 2 IMM Explained to pt & daughter, Pg 2 IMM. No questions voiced. Provided pt a copy. Initialed, dated, & timed a copy & placed in chart.
[2021-09-28] MEDS: enoxaparin 40 mg/0.4 mL Syringe SUBCUT (17:49)
[2021-09-28 21:07] LABS: Glucose Point of Care 266 mg/dL (70-110)
[2021-09-29] VITALS (16 sets, daily range): BP systolic 93–104; BP diastolic 56–69; PULSE 67–89; RESP 18–34; TEMP 36.4–36.6; O2SAT 54–99
[2021-09-29 06:08] LABS: Basophils % 0.1 %; Eosinophils # 0.2 10^3/uL (0.0-0.8); Eosinophils % 0.9 %; Hematocrit 30.6 % (37.0-47.0); Hemoglobin 9.8 g/dL (11.5-15.3); Lymphocytes # 3.7 10^3/uL (0.8-4.8); Lymphocytes % 21.4 %; Mean Corpuscular Hemoglobin 28.7 pg (28.0-34.0); Mean Corpuscular Volume 89.7 fl (81-99); Mean Platelet Volume 9.9 fL (7.4-10.4); Monocytes # 1.2 10^3/uL (0.2-0.9); Monocytes % 6.9 %; Neutrophils % 69.8 %; Nucleated Red Blood Cells % 0 %; Platelet Count 421 10^3/cmm (130-400); Red Blood Count 3.41 10^6/uL (4.1-5.3); Red Cell Distribution Width 14.1 % (12.1-15.1); White Blood Count 17.2 10^3/uL (4.0-10.0)
[2021-09-29 06:48] LABS: Anion Gap 15.7 (5-19); Blood Urea Nitrogen 32 mg/dL (8-23); Carbon Dioxide 28 mmol/L (22-29); Chloride 93 mmol/L (98-107); Glucose 114 mg/dL (65-115); Osmolality Calculated 282 mOsm/kg (285-295); Potassium 4.7 mmol/L (3.5-5.1); Sodium 132 mmol/L (136-145)
[2021-09-29] MEDS: ipratropium-albuterol 3 mL Neb INHALATION ×2 (07:50→20:26)
--- NOTE | 2021-09-29 08:08 | PC.NURSE ---
pt had shake vest on during BP. Will recheck after RT.
--- NOTE | 2021-09-29 09:40 | P.PN_ITS ---
Subjective Subjective: This morning with she has not been able to get out of bed on her own, requested PT and OT She is on BiPAP Awake and alert Very fatigued and lethargic Negative fluid balance Hemoglobin 9.8 FOBT negative No signs of B12 deficiency, low iron White count 17,000 Vitals/I&O/Wt Last Vital Signs Temp 97.5 F L 09/29/21 08:00 Pulse 78 09/29/21 08:11 Resp 32 H 09/29/21 08:08 BP 96/61 09/29/21 08:00 Pulse Ox 94 09/29/21 08:08 09/28/21 09/29/21 09/29/21 22:59 06:59 14:59 Output Total 800 / 800 1050 / 1850 Balance -800 / 40 -1050 / -1010 Physical Exam Narrative: Patient is fatigued and lethargic clinically does not look fluid overloaded S1, S2 systolic murmur Abdomen soft No signs of edema of legs Awake and alert Nonfocal neuro exam Saturating well on BiPAP FiO2 45% Hyperemia around sacral area Mo catheter draining dilute urine Urinary Catheter Management: Mo: Cath Placed During This Visit: yes Reason for Continuing Indwelling Catheter: Assist Healing of Perineal & Sacral Wounds- Incontinent Patients Urinary Catheter Date of Insertion: 09/25/21 Urinary Catheter Time of Insertion: 20:29 Data : 09/29/21 06:00 09/29/21 06:00 Micro: Microbiology 09/28/21 09:48 Occult Blood (FIT) - Final Stool - Stool Aspirate A&P Assessment and plan (1) Acute hyperkalemia: Status: Acute (2) Anemia: Status: Acute (3) HTN (hypertension): Status: Acute (4) Aortic valve stenosis: Status: Acute (5) Acute respiratory failure with hypoxia: Status: Acute (6) Mucus plugging of bronchi: Status: Acute (7) Respiratory failure: Status: Acute (8) CHF exacerbation: Status: Acute (9) Pneumonia: Status: Acute Plan Severe aortic valve stenosis acute CHF exacerbation Secondary to low blood pressure hold metoprolol and Lasix today Patient looks euvolemic Judicious use of diuretics with severe Patient and her daughter agreeable for coronary angiogram, will touch base with cardiology Mucous plug with community-acquired pneumonia Continue antibiotics Leukocytosis trending down Normocytic anemia Patient does not need active investigation as there is n acute onset/active GI bleed May benefit from iron supplementation Hyperkalemia related to medications: Improved Cardiac diet Full code PT/OT evaluation Hold andrés Espinal Medical Necessity Statement*: Continue hospitalization continue hospitalization Time Spent in Patient Care: 20min Coding Level of Care Code Acute Neurodiagnostic Technologist for Chg Fwd Diagnoses Acute hyperkalemia E87.5 Anemia D64.9 HTN (hypertension) I10 Aortic valve stenosis I35.0 Acute respiratory failure with hypoxia J96.01 Mucus plugging of bronchi T17.500A Respiratory failure J96.90 CHF exacerbation I50.9 Pneumonia J18.9
[2021-09-29] MEDS: guaiFENesin 600 mg Tablet 1200 MG PO ×2 (10:42→16:49)
[2021-09-29] MEDS: cefTRIAXone 1,000 MG in sodium chloride 0.9% (plus) 50 ML 100 MG IV (10:43)
[2021-09-29] MEDS: azithromycin 250 mg Tablet 500 MG PO (10:43)
[2021-09-29] MEDS: enoxaparin 40 mg/0.4 mL Syringe SUBCUT (13:07)
[2021-09-29] MEDS: acetaminophen 500 mg Tablet PO (13:07)
--- NOTE | 2021-09-29 14:54 | PM.PN ---
Subjective Subjective: Patient is still short of breath Vitals/I&O/Wt Last Vital Signs Temp 97.5 F L 09/29/21 11:15 Pulse 73 09/29/21 11:15 Resp 18 09/29/21 11:15 BP 100/65 09/29/21 11:15 Pulse Ox 91 09/29/21 11:15 09/28/21 09/29/21 09/29/21 22:59 06:59 14:59 Intake Total 360 / 360 Output Total 800 / 800 1050 / 1850 Balance -800 / 90 -1050 / -960 360 / 360 Physical Exam Narrative: GENERAL: Patient is alert, awake and oriented x3. [] NECK: No jugular vein distension. [] HEENT: No cyanosis. No icterus. No pallor. [] HEART: Regular S1 and S2. Grade 4/6 systolic murmur LUNGS: Has mild crackles ABDOMEN: Soft, nontender and nondistended. CENTRAL NERVOUS SYSTEM: Grossly nonfocal. [] EXTREMITIES: Lower extremities with 1+ edema bilaterally. Pulses palpable in the lower extremities, both dorsalis pedis and posterior tibial. [] Urinary Catheter Management: Mo: Cath Placed During This Visit: yes Reason for Continuing Indwelling Catheter: Assist Healing of Perineal & Sacral Wounds- Incontinent Patients Urinary Catheter Date of Insertion: 09/25/21 Urinary Catheter Time of Insertion: 20:29 Data : 09/30/21 05:05 09/30/21 05:05 Micro: Microbiology 09/28/21 09:48 Occult Blood (FIT) - Final Stool - Stool Aspirate A&P Assessment and plan (1) Aortic valve stenosis: Status: Acute (2) CHF exacerbation: Status: Acute (3) Acute respiratory failure with hypoxia: Status: Acute (4) HTN (hypertension): Status: Acute (5) Anemia: Status: Acute Plan Patient has presented with respiratory failure secondary to combination of pneumonia and CHF. Was also found to have severe aortic stenosis. On review of prior echoes, she had severe aortic stenosis in 2019 however was lost to follow-up at that time. WBC count is trending down. Continue Lasix 40 mg once daily. She is staying in a negative balance at this time. Continue BiPAP as needed. Renal function is normal. However she is not able to lay down flat for coronary angiogram. Once pneumonia has completely treated we will proceed with coronary angiogram. Thank you for involving us with care of this patient. We will continue to follow. Please call with questions Attestations Medical Necessity Statement*: Care expected to cross 2 midnights. Coding Level of Care Code Acute Superintendent Recreation for Renetta Fwd Diagnoses Aortic valve stenosis I35.0 CHF exacerbation I50.9 Acute respiratory failure with hypoxia J96.01 HTN (hypertension) I10 Anemia D64.9
[2021-09-30] VITALS (53 sets, daily range): BP systolic 70–168; BP diastolic 48–105; PULSE 68–115; RESP 14–45; TEMP 36.7–37.5; O2SAT 84–99
[2021-09-30] MEDS: ipratropium-albuterol 3 mL Neb INHALATION ×2 (02:51→15:03)
[2021-09-30 05:49] LABS: Basophils % 0.1 %; Eosinophils # 0.5 10^3/uL (0.0-0.8); Eosinophils % 3.5 %; Hematocrit 31.6 % (37.0-47.0); Hemoglobin 9.7 g/dL (11.5-15.3); Lymphocytes # 2.8 10^3/uL (0.8-4.8); Lymphocytes % 19.1 %; Mean Corpuscular HGB Conc 30.7 g/dL (30.0-36.0); Mean Corpuscular Hemoglobin 28.7 pg (28.0-34.0); Mean Corpuscular Volume 93.5 fl (81-99); Mean Platelet Volume 10.2 fL (7.4-10.4); Monocytes % 6.7 %; Neutrophils # 10.27 10^3/uL (1.8-7.7); Neutrophils % 69.9 %; Nucleated Red Blood Cells % 0 %; Platelet Count 393 10^3/cmm (130-400); Red Blood Count 3.38 10^6/uL (4.1-5.3); Red Cell Distribution Width 14.2 % (12.1-15.1); White Blood Count 14.7 10^3/uL (4.0-10.0)
[2021-09-30 06:08] LABS: Anion Gap 14.5 (5-19); Blood Urea Nitrogen 26 mg/dL (8-23); Carbon Dioxide 28 mmol/L (22-29); Chloride 98 mmol/L (98-107); Glucose 111 mg/dL (65-115); Osmolality Calculated 287 mOsm/kg (285-295); Potassium 4.5 mmol/L (3.5-5.1); Sodium 136 mmol/L (136-145)
[2021-09-30] MEDS: sennosides-docusate Tablet 1 TAB PO (09:09)
[2021-09-30] MEDS: cefTRIAXone 1,000 MG in sodium chloride 0.9% (plus) 50 ML 100 MG IV (09:09)
[2021-09-30] MEDS: azithromycin 250 mg Tablet 500 MG PO (09:09)
[2021-09-30] MEDS: guaiFENesin 600 mg Tablet 1200 MG PO ×2 (09:09→18:30)
--- NOTE | 2021-09-30 09:57 | PC.SOCIAL ---
IMM update IMM updated with patient and family at bedside. Verbalized an understanding. Copy Pg 2 provided. Initialled, dated, timed, and placed in chart.
--- NOTE | 2021-09-30 10:05 | ECG_ITS ---
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 Measurements Intervals [place] Rate: 93 P: 19 W[place]: 162 QRS: -54 QRSD: 106 T: 112 QT: 346 QTc: 431 Interpretive Statements SINUS RHYTHM WITH FREQUENT VENTRICULAR PREMATURE COMPLEXES LEFT ANTERIOR FASCICULAR BLOCK [QRS AXIS <= -45, QR IN I, RS IN II] LEFT VENTRICULAR HYPERTROPHY AND ST-T CHANGE [VOLTAGE CRITERIA PLUS ST/T ABNORMALITY] POSSIBLE SEPTAL MYOCARDIAL INFARCTION , PROBABLY OLD [30 ms Q WAVE IN V1/V2] INTERPRETATION BASED ON A DEFAULT AGE OF 40 YEARS Compared to ECG 09/26/2021 02:10:27 Ventricular premature complex(es) now present ST (T wave) deviation now present Myocardial infarct finding still present Electronically Signed On 10-01-2021 15:55:04 CDT by Bharat Mtz M.D. [id number] tyrese
--- NOTE | 2021-09-30 10:07 | XRR_ITS ---
PROCEDURE INFORMATION: Exam: XR Chest Exam date and time: 09/30/2021 10:07 AM Age: 85 years old Clinical indication: Shortness of breath TECHNIQUE: Imaging protocol: XR of the chest. Views: 1 view. Total images: 1 COMPARISON: CR (CHEST, ) 09/25/2021 5:19 PM FINDINGS: Lungs: Bilateral pulmonary opacities are again noted and appear unchanged. Pleural spaces: Unremarkable. No pleural effusion. No pneumothorax. Heart/Mediastinum: Heart size is stable when compared to the prior exam. Bones/joints: Osseous structures are unchanged from the prior exam. Diffuse osteopenia noted. XR/XR chest 1V portable [id number] IMPRESSION: Bilateral pulmonary opacities are again noted and appear unchanged.
[2021-09-30 10:20] LABS: ABG PCO2 41.7 mmHg (35-45); ABG PH Result 7.49 (7.35-7.45); Base Excess ABG 7.8 mmol/L (-2.0-2.0); Blood Gas Allen Test Pos; Blood Gas Sample Type Arterial; Carboxyhemoglobin 1.1 %THgb (0.4-20.1); HCO3 ABG 31.8 mmol/L (22-26); HGB O2 Sat 95.8 % (95-100); Ionized Calcium Level - ABG 1.1 mmol/L (1.1-1.4); Methemoglobin 0.7 % (0.4-1.5); Oxygen Saturation ABG 97.5; PO2 ABG 82.7 mmHg (80.0-100.0); Potassium Level - ABG 4.8 mmol/L (3.5-5.0); Total Hemoglobin 10.1 g/dL (12-16)
[2021-09-30 10:21] LABS: Blood Gas Operator Identificat ED; Blood Gas Sample Site Radial, right; Oxygen Device BIPAP
--- NOTE | 2021-09-30 10:50 | PM.PN ---
Subjective Subjective: Patient has increased work of breathing. Denies chest pain. Vitals/I&O/Wt Last Vital Signs Temp 98.6 F 09/30/21 08:00 Pulse 78 09/30/21 09:45 Resp 18 09/30/21 08:03 BP 96/72 09/30/21 08:00 Pulse Ox 92 09/30/21 09:45 09/29/21 09/30/21 09/30/21 22:59 06:59 14:59 Intake Total 0 / 360 900 / 1260 300 / 300 Output Total 1200 / 1200 800 / 2000 Balance -1200 / -840 100 / -740 300 / 300 Physical Exam Narrative: GENERAL: Patient is alert, awake and oriented x3. [] NECK: No jugular vein distension. [] HEENT: No cyanosis. No icterus. No pallor. [] HEART: Regular S1 and S2. Grade 4/6 systolic murmur LUNGS: Has mild crackles ABDOMEN: Soft, nontender and nondistended. CENTRAL NERVOUS SYSTEM: Grossly nonfocal. [] EXTREMITIES: Lower extremities with 1+ edema bilaterally. Pulses palpable in the lower extremities, both dorsalis pedis and posterior tibial. [] Urinary Catheter Management: Mo: Cath Placed During This Visit: yes Reason for Continuing Indwelling Catheter: Assist Healing of Perineal & Sacral Wounds- Incontinent Patients Urinary Catheter Date of Insertion: 09/25/21 Urinary Catheter Time of Insertion: 20:29 Data : 10/01/21 04:02 10/01/21 04:02 A&P Assessment and plan (1) Aortic valve stenosis: Status: Acute (2) CHF exacerbation: Status: Acute (3) Acute respiratory failure with hypoxia: Status: Acute (4) HTN (hypertension): Status: Acute (5) Anemia: Status: Acute Plan Patient has presented with respiratory failure secondary to combination of pneumonia and CHF. Was also found to have severe aortic stenosis. On review of prior echoes, she had severe aortic stenosis in 2019 however was lost to follow-up at that time. Respiratory status has worsened today. Put on BiPAP. She may require intubation and vent support. Transfer to ICU. Continue lasix [facility] made today. Plan for coronary angiogram once patient is stable Thank you for involving us with care of this patient. We will continue to follow. Please call with questions Attestations Medical Necessity Statement*: Care expected to cross 2 midnights. Coding Level of Care Code Acute Side Seam Envelope Machine Operator for g Fwd Diagnoses Aortic valve stenosis I35.0 CHF exacerbation I50.9 Acute respiratory failure with hypoxia J96.01 HTN (hypertension) I10 Anemia D64.9
--- NOTE | 2021-09-30 11:15 | PM.PN ---
Subjective Subjective: This morning detailed family meeting was done, EKG was shared with Dr. Mtz I have requested chest x-ray, ABG Troponin, transfer to ICU Respiratory rate is about 40s, secondary to her tachypnea we will plan to intubate her if this does not improve in the next 1 hour Consent taken from the patient and her family Vitals/I&O/Wt Last Vital Signs Temp 98.6 F 09/30/21 08:00 Pulse 78 09/30/21 09:45 Resp 18 09/30/21 08:03 BP 96/72 09/30/21 08:00 Pulse Ox 92 09/30/21 09:45 09/29/21 09/30/21 09/30/21 22:59 06:59 14:59 Intake Total 0 / 360 900 / 1260 300 / 300 Output Total 1200 / 1200 800 / 2000 Balance -1200 / -840 100 / -740 300 / 300 Physical Exam Narrative: Patient clinically looks dry bilateral breath sounds with diminished airflow Abdomen is soft Looks dry No signs of edema of legs Yellow-colored urine Sacral ulcer Ulcer on left side of her face is consistent with basal cell carcinoma Patient has facemask on, tachypnea in 40s saturation is normal She is able to understand all my questions She was complaining of chest discomfort in mid epigastric region Nonfocal neuro exam Fatigued & lethargic Urinary Catheter Management: Mo: Cath Placed During This Visit: yes Reason for Continuing Indwelling Catheter: Assist Healing of Perineal & Sacral Wounds- Incontinent Patients Urinary Catheter Date of Insertion: 09/25/21 Urinary Catheter Time of Insertion: 20:29 Data : 09/30/21 05:05 09/30/21 05:05 A&P Assessment and plan (1) Anemia: Status: Acute (2) Acute hyperkalemia: Status: Acute (3) HTN (hypertension): Status: Acute (4) Aortic valve stenosis: Status: Acute (5) Acute respiratory failure with hypoxia: Status: Acute (6) Mucus plugging of bronchi: Status: Acute (7) Respiratory failure: Status: Acute (8) CHF exacerbation: Status: Acute (9) Pneumonia: Status: Acute Plan Systolic congestive heart failure exacerbation with underlying severe aortic valve stenosis Poor EF She will need coronary angiogram Dr. Mtz has been notified Twelve-lead EKG obtained, troponin obtained We will follow up with chest x-ray before making this change regarding initiation of diuretics, with severe aortic valve stenosis she is preload dependent, I will be reluctant to add high-dose diuretics Tachypnea Currently on BiPAP respiratory rate in 40s Obtain ABG, twelve-lead EKG Transfer to ICU Plan for intubation if she remains tachypneic Hyperkalemia: Improved Anemia: Stable no active GI bleed Community-acquired pneumonia Tachypnea Respiratory failure requiring BiPAP Continue antibiotics Patient is afebrile Leukocytosis trending down Exophytic ulcerating mass left side of her face basal cell carcinoma? Sacral ulcer: Nursing care, wound care dressing Keep her n.p.o. for now Full code Family meeting conducted Attestations Medical Necessity Statement*: Transfer to ICU Time Spent in Patient Care: 40min Coding Level of Care Code Acute Personal Injury Legal Assistant for Chg Fwd Diagnoses Anemia D64.9 Acute hyperkalemia E87.5 HTN (hypertension) I10 Aortic valve stenosis I35.0 Acute respiratory failure with hypoxia J96.01 Mucus plugging of bronchi T17.500A Respiratory failure J96.90 CHF exacerbation I50.9 Pneumonia J18.9
[2021-09-30 11:24] LABS: Troponin T (5th) Once 36 ng/L (0-10)
--- NOTE | 2021-09-30 11:25 | PC.NURSE ---
Transfer to ICU Pt received in ICU from med surg via bed. bedside report received from Jacqui Mercado RN. Pt on bipap at 40% with noted tachypnea. IV noted to the left forearm/ac area
[2021-09-30] MEDS: rocuronium 10 mg/mL INJ 5mL 100 MG IVP (12:22)
--- NOTE | 2021-09-30 12:30 | PC.NURSE ---
Intubation Pt intubated with Dr. Goldsmith at bedside. OG tube inserted. Chest Xray ordered for confirmation.
--- NOTE | 2021-09-30 12:42 | XRR_ITS ---
PROCEDURE INFORMATION: Exam: XR Chest Exam date and time: 09/30/2021 12:42 PM Age: 85 years old Clinical indication: Device placement; Ett placement (vent status); Patient HX: Et and og placement TECHNIQUE: Imaging protocol: XR of the chest. Views: 1 view. COMPARISON: XR CHEST 09/30/2021 11:21 AM FINDINGS: Tubes, catheters and devices: There is an endotracheal tube with the tip 2.7 cm above the reba. There is an enteric tube extending down into the stomach and off the image. Lungs: Bilateral airspace disease, more so on the right side, which could be due to asymmetric pulmonary edema or pneumonia. This appears to have worsened in the interval. Pleural spaces: Small bilateral pleural effusions. No pneumothorax. Heart/Mediastinum: The cardiac silhouette is not enlarged. Bones/joints: No acute osseous abnormality. XR/XR chest 1V portable [id number] IMPRESSION: 1. Endotracheal tube tip 2.7 cm above the reba. 2. Enteric tube extends to the stomach. 3. Worsening of asymmetric pulmonary edema versus pneumonia.
--- NOTE | 2021-09-30 12:45 | PC.NURSE ---
REPORT GIVEN TO PAPI IN ICU. PT SAFELY TRANSPORTED TO ICU.
--- NOTE | 2021-09-30 13:05 | PC.OT ---
OT held this date per RN request; pt moved to ICU and supposed to be intubated this date.
[2021-09-30 13:58] LABS: ABG PH Result 7.37 (7.35-7.45); Arterial Blood Gas Hematocrit 33.3 % (37-47); Base Excess ABG 7.4 mmol/L (-2.0-2.0); Blood Gas Allen Test Pos; Blood Gas Sample Type Arterial; Carboxyhemoglobin 0.9 %THgb (0.4-20.1); HCO3 ABG 34.2 mmol/L (22-26); HGB O2 Sat 98.5 % (95-100); Ionized Calcium Level - ABG 1.2 mmol/L (1.1-1.4); Methemoglobin 0.8 % (0.4-1.5); Oxygen Saturation ABG > 100.0; Potassium Level - ABG 5.2 mmol/L (3.5-5.0); Total Hemoglobin 10.9 g/dL (12-16)
[2021-09-30 13:59] LABS: Alveolar-Arterial Oxygen Gradi 45.3 mmHg (5-10); Blood Gas Operator Identificat GD; Blood Gas Sample Site Radial, right; Blood Gas Tidal Volume 0.32; Oxygen Device VENT
--- NOTE | 2021-09-30 14:00 | PM.ACPR ---
Procedure/Consent Consent: Additional Consent Information: taken from pt Procedure Narrative: late entry Acute Procedures Intubation: Time out performed: Yes Sedative: etomidate Paralytic: rocuronium Laryngoscope: fiber optic video scope ET tube size: 8 Tube secured depth (cm): 24 Tube secured location: teeth Tube placement confirmation: visualized tube passing through cords, equal breath sounds bilaterally, no breath sounds over epigastrium, confirmation by capnometry and color change noted Patient tolerated procedure: well Additional comments: Patient was intubated on 09/30 after she failed BiPAP She was tachypneic, Consent was taken from the patient and her family She was intubated without any complications Hemodynamic remained stable, Levophed was initiated before intubation Endotracheal tube was passed on first attempt No significant hypoxia during and post intubation Endotracheal tube position confirmed chest x-ray afterwards
[2021-09-30] MEDS: enoxaparin 40 mg/0.4 mL Syringe SUBCUT (14:40)
[2021-09-30] MEDS: FUROsemide 10 mg/mL SDV 4mL 40 MG IVP (14:40)
[2021-09-30 17:08] LABS: ABG PCO2 47.9 mmHg (35-45); ABG PH Result 7.45 (7.35-7.45); Arterial Blood Gas Hematocrit 39.3 % (37-47); Base Excess ABG 8.4 mmol/L (-2.0-2.0); Blood Gas Allen Test Pos; Blood Gas Operator Identificat GD; Blood Gas Sample Site Radial, right; Blood Gas Sample Type Arterial; HCO3 ABG 33.6 mmol/L (22-26); Oxygen Device VENT
--- NOTE | 2021-09-30 19:00 | PC.NURSE ---
ASSUMING CARE Bedside report from MADINA Thomas. Patient resting in bed mechanically ventilated. ET tube size 8, 24 cm at the lip, VC-AC mode, FiO2 30%, TV 350, RR 14, PEEP 8. Fentanyl running at 50 mcg/hour, levophed running at 10 mcg/min, versed at 4mg/hour. Patient has 2 peripheral IV's to L AC and L wrist. Mo catheter in place and draining.
[2021-09-30] MEDS: norepinephrine 8 MG in dextrose 5 % 500 ML 38.1 MG IV (22:45)
[2021-10-01] VITALS (85 sets, daily range): BP systolic 81–124; BP diastolic 48–76; PULSE 62–76; RESP 14–15; TEMP 36.8–37.6; O2SAT 92–97
[2021-10-01 04:34] LABS: Basophils # 0.1 10^3/uL (0.0-0.1); Basophils % 0.3 %; Eosinophils # 0.7 10^3/uL (0.0-0.8); Eosinophils % 3.3 %; Hematocrit 30.7 % (37.0-47.0); Hemoglobin 9.5 g/dL (11.5-15.3); Lymphocytes % 27.2 %; Mean Corpuscular HGB Conc 30.9 g/dL (30.0-36.0); Mean Corpuscular Hemoglobin 28.2 pg (28.0-34.0); Mean Corpuscular Volume 91.1 fl (81-99); Mean Platelet Volume 10.2 fL (7.4-10.4); Monocytes # 1.4 10^3/uL (0.2-0.9); Monocytes % 6.5 %; Neutrophils # 13.57 10^3/uL (1.8-7.7); Neutrophils % 62.2 %; Nucleated Red Blood Cells % 0.1 %; Platelet Count 501 10^3/cmm (130-400); Red Blood Count 3.37 10^6/uL (4.1-5.3); White Blood Count 21.8 10^3/uL (4.0-10.0)
[2021-10-01 04:52] LABS: Alanine Aminotransferase 81 U/L (0-33); Albumin Level 2.6 g/dL (3.5-5.2); Alkaline Phosphatase 93 IU/L (35-105); Anion Gap 12.8 (5-19); Aspartate Amino Transferase 56 U/L (0-32); Blood Urea Nitrogen 25 mg/dL (8-23); Calcium 8.7 mg/dL (8.5-10.5); Carbon Dioxide 30 mmol/L (22-29); Chloride 94 mmol/L (98-107); Globulin 4.1 g/dL (1.3-4.6); Glucose 168 mg/dL (65-115); Magnesium 2.4 mg/dL (1.7-2.3); Osmolality Calculated 282 mOsm/kg (285-295); Potassium 4.8 mmol/L (3.5-5.1); Sodium 132 mmol/L (136-145); Total Bilirubin 0.3 mg/dL (0.15-1.2); Total Protein 6.7 g/dL (6.6-8.7)
[2021-10-01 05:20] LABS: ABG PCO2 43.6 mmHg (35-45); Arterial Blood Gas Hematocrit 31.7 % (37-47); Base Excess ABG 10.1 mmol/L (-2.0-2.0); Blood Gas Allen Test Pos; Blood Gas Sample Site Radial, right; Blood Gas Sample Type Arterial; Blood Gas Tidal Volume 0.35; HCO3 ABG 34.3 mmol/L (22-26); Oxygen Device VENT; PO2 ABG 76.5 mmHg (80.0-100.0)
[2021-10-01] MEDS: ipratropium-albuterol 3 mL Neb INHALATION (08:05)
[2021-10-01] MEDS: guaiFENesin 600 mg Tablet 1200 MG PO (09:13)
[2021-10-01] MEDS: sennosides-docusate Tablet 1 TAB PO (09:13)
[2021-10-01] MEDS: cefTRIAXone 1,000 MG in sodium chloride 0.9% (plus) 50 ML 100 MG IV (09:13)
--- NOTE | 2021-10-01 09:36 | XRR_ITS ---
PROCEDURE INFORMATION: Exam: XR Chest Exam date and time: 10/01/2021 9:36 AM Age: 85 years old Clinical indication: Device placement; Ett placement (vent status); Shortness of breath; Additional info: SOB TECHNIQUE: Imaging protocol: XR of the chest. Views: 1 view. COMPARISON: CR XR chest 1V portable [id number] 09/30/2021 1:14 PM FINDINGS: Tubes, catheters and devices: Endotracheal tube is 6 mm above the reba. NG tube extends into the stomach Lungs: Low lung volumes seen. There is right perihilar vascular congestion seen. There is improved aeration in right lung comparing to prior peer Pleural spaces: Unremarkable. No pleural effusion. No pneumothorax. Heart/Mediastinum: Prominent left hilar are soft tissues are seen these findings were not as well seen on recent prior examination and likely represents positional artifact. Repeat examination with improved inspiration is recommended. No cardiomegaly. Bones/joints: Unremarkable. XR/XR chest 1V portable [id number] IMPRESSION: 1. Endotracheal tube is above the reba. 2. NG tube is in the stomach. 3. Low lung volumes in both lungs. 4. Right perihilar vascular congestion 5. Prominent left hilar soft tissues positional artifact .
[2021-10-01] MEDS: iron complex forte Capsule 1 EACH PO (10:16)
--- NOTE | 2021-10-01 10:31 | P.PN_ITS ---
Subjective Subjective: Patient is intubated sedated 1100 mL output Leukocytosis Afebrile Escalate antibiotics to Zosyn7 MRSA PCR negative She received ceftriaxone this morning Repeating x-ray Plan for angiogram tomorrow if clinically stable lukocytosis improving I did call [facility], they are not able to do TAVR if she is intubated, Vitals/I&O/Wt Last Vital Signs Temp 98.5 F 10/01/21 07:30 Pulse 75 10/01/21 08:45 Resp 14 10/01/21 09:16 BP 95/56 10/01/21 08:45 Pulse Ox 96 10/01/21 09:16 09/30/21 10/01/21 10/01/21 21:59 06:59 14:59 Intake Total 205.674 / 205.674 Output Total Balance 205.674 / 205.674 Physical Exam Narrative: Patient is intubated sedated Versed at 40 Fentanyl at 50 Levo at 8 Clinical looks euvolemic Bilateral breath sounds Crackles noted Abdomen soft Neuro exam limited Assisted bilateral breath sounds Mo catheter draining yellow clear urine Urinary Catheter Management: Mo: Cath Placed During This Visit: yes Reason for Continuing Indwelling Catheter: Assist Healing of Perineal & Sacral Wounds- Incontinent Patients Urinary Catheter Date of Insertion: 09/25/21 Urinary Catheter Time of Insertion: 20:29 Data : 10/01/21 04:02 10/01/21 04:02 Micro: Microbiology 09/30/21 13:00 Gram Stain - Final Sputum - Endotracheal Tube Aspirate Sputum Culture - Preliminary A&P Assessment and plan (1) Acute hyperkalemia: Status: Acute (2) Anemia: Status: Acute (3) HTN (hypertension): Status: Acute (4) Aortic valve stenosis: Status: Acute (5) Acute respiratory failure with hypoxia: Status: Acute (6) Mucus plugging of bronchi: Status: Acute (7) Respiratory failure: Status: Acute (8) CHF exacerbation: Status: Acute (9) Pneumonia: Status: Acute Plan Patient intubated and sedated PEEP 8, FiO2 30% Wean off vasopressors currently on levo at 8 Does not have typical cardiogenic shock presentation Low blood pressures most likely combination of diuretics and severe aortic stenosis, judicious use of diuretics Intubated 09/30 for tachypnea respiratory failure Patient experiencing conversational dyspnea yesterday with tachypnea that indicated intubation Plan for angiogram on 10/02 if leukocytosis improved I will escalate antibiotics to Zosyn Afebrile Cultures negative to date Negative fluid balance Repeat x-ray this morning Hyperkalemia improved Hemoglobin stable Hold off on feeding for now Keep her n.p.o. DVT prophylaxis on board Cardiomyopathy, needs coronary angiogram Severe aortic valve stenosis, did present her case to April, patient was declined because she is in ICU intubated We will try Benjamin Perez, Full code Attestations Medical Necessity Statement*: Continue ICU management Critical Care Time: 15 Coding Level of Care Code Acute Rotary Swaging Machine Operator for g Fwd Diagnoses Acute hyperkalemia E87.5 Anemia D64.9 HTN (hypertension) I10 Aortic valve stenosis I35.0 Acute respiratory failure with hypoxia J96.01 Mucus plugging of bronchi T17.500A Respiratory failure J96.90 CHF exacerbation I50.9 Pneumonia J18.9
[2021-10-01] MEDS: enoxaparin 40 mg/0.4 mL Syringe SUBCUT (12:14)
[2021-10-01] MEDS: FUROsemide 10 mg/mL SDV 4mL 40 MG IVP (12:14)
[2021-10-01] MEDS: piperacillin-tazobactam 3.375 GM in sodium chloride 0.9% (plus) 50 ML IV ×2 (12:14→17:40)
[2021-10-01] MEDS: norepinephrine 8 MG in dextrose 5 % 500 ML 41.91 MG IV (14:46)
--- NOTE | 2021-10-01 20:27 | PM.PN ---
Subjective Subjective: Patient was intubated yesterday. Her WBC count has increased today. Patient put on broader spectrum antibiotics. Vitals/I&O/Wt Last Vital Signs Temp 99.5 F 10/01/21 19:29 Pulse 65 10/01/21 19:29 Resp 14 10/01/21 20:03 BP 95/50 10/01/21 19:29 Pulse Ox 96 10/01/21 20:03 10/01/21 10/01/21 10/01/21 06:59 14:59 22:59 Intake Total 319.720 / 319.720 50 / 369.720 Output Total 900 / 900 Balance -580.280 / -580.280 50 / -530.280 Physical Exam Narrative: GENERAL: Patient is intubated HEENT: No cyanosis. No icterus. No pallor. [] HEART: Regular S1 and S2. Grade 4/6 systolic murmur LUNGS: Has mild crackles ABDOMEN: Soft, nontender and nondistended. CENTRAL NERVOUS SYSTEM: Grossly nonfocal. [] EXTREMITIES: Lower extremities with 1+ edema bilaterally. Pulses palpable in the lower extremities, both dorsalis pedis and posterior tibial. [] Urinary Catheter Management: Mo: Cath Placed During This Visit: yes Reason for Continuing Indwelling Catheter: Accurate Measurement of Urinary Output in Critically Ill Patients Urinary Catheter Date of Insertion: 09/25/21 Urinary Catheter Time of Insertion: 20:29 Data : 10/01/21 04:02 10/01/21 04:02 Micro: Microbiology 09/30/21 13:00 Gram Stain - Final Sputum - Endotracheal Tube Aspirate Sputum Culture - Preliminary A&P Assessment and plan (1) Aortic valve stenosis: Status: Acute (2) CHF exacerbation: Status: Acute (3) Acute respiratory failure with hypoxia: Status: Acute (4) HTN (hypertension): Status: Acute (5) Anemia: Status: Acute Plan Patient has presented with respiratory failure secondary to combination of pneumonia and CHF. Was also found to have severe aortic stenosis. On review of prior echoes, she had severe aortic stenosis in 2019 however was lost to follow-up at that time. Patient's respiratory status worsened yesterday. She was transferred to ICU and put on ventilator. WBC count has worsened today. Antibiotic coverage broadened per primary team. Continue lasix [facility] made yesterday[facility] They were unable to accept patient because of intubation Plan for coronary angiogram once patient is stable. WBC count has worsened today. will reassess tomorrow. Thank you for involving us with care of this patient. We will continue to follow. Please call with questions Attestations Medical Necessity Statement*: Care expected to cross 2 midnights. Coding Level of Care Code Acute Head Soft Sugar Operator for g Fwd Diagnoses Aortic valve stenosis I35.0 CHF exacerbation I50.9 Acute respiratory failure with hypoxia J96.01 HTN (hypertension) I10 Anemia D64.9
[2021-10-02] VITALS (107 sets, daily range): BP systolic 84–125; BP diastolic 38–70; PULSE 58–77; RESP 14–20; TEMP 37.1–37.5; O2SAT 94–100
[2021-10-02] MEDS: piperacillin-tazobactam 3.375 GM in sodium chloride 0.9% (plus) 50 ML IV ×3 (02:20→18:02)
[2021-10-02] MEDS: norepinephrine 8 MG in dextrose 5 % 500 ML 60.96 MG IV (02:22)
[2021-10-02 05:00] LABS: Basophils # 0.2 10^3/uL (0.0-0.1); Basophils % 0.7 %; Eosinophils # 0.9 10^3/uL (0.0-0.8); Eosinophils % 3.6 %; Hematocrit 33.7 % (37.0-47.0); Hemoglobin 10.3 g/dL (11.5-15.3); Lymphocytes # 6.6 10^3/uL (0.8-4.8); Lymphocytes % 25.4 %; Mean Corpuscular HGB Conc 30.6 g/dL (30.0-36.0); Mean Corpuscular Hemoglobin 28.9 pg (28.0-34.0); Mean Corpuscular Volume 94.7 fl (81-99); Monocytes # 1.7 10^3/uL (0.2-0.9); Monocytes % 6.6 %; Neutrophils # 16.44 10^3/uL (1.8-7.7); Neutrophils % 63.1 %; Nucleated Red Blood Cells % 0 %; Platelet Count 401 10^3/cmm (130-400); Red Blood Count 3.56 10^6/uL (4.1-5.3); Red Cell Distribution Width 14.3 % (12.1-15.1); White Blood Count 26.1 10^3/uL (4.0-10.0)
[2021-10-02 05:17] LABS: Blood Urea Nitrogen 16 mg/dL (8-23); Calcium 7.8 mg/dL (8.5-10.5); Carbon Dioxide 28 mmol/L (22-29); Chloride 92 mmol/L (98-107); Glucose 188 mg/dL (65-115); Osmolality Calculated 278 mOsm/kg (285-295); Sodium 131 mmol/L (136-145)
[2021-10-02 05:21] LABS: Slide Review Slide Review Perform
[2021-10-02 05:22] LABS: Anion Gap 15.5 (5-19); Potassium 4.5 mmol/L (3.5-5.1)
[2021-10-02] MEDS: vancomycin 1,000 MG in sodium chloride 0.9% 250 ML 250 MG IV (07:50)
[2021-10-02] MEDS: sennosides-docusate Tablet 1 TAB PO (08:02)
[2021-10-02] MEDS: iron complex forte Capsule 1 EACH PO (08:03)
[2021-10-02] MEDS: guaiFENesin 600 mg Tablet 1200 MG PO ×2 (08:03→18:02)
[2021-10-02] MEDS: ipratropium-albuterol 3 mL Neb INHALATION ×2 (08:22→19:56)
--- NOTE | 2021-10-02 08:39 | PM.PN ---
Subjective Subjective: Patient intubated sedated Levophed at 16 No overnight events Leukocytosis noted, added vancomycin to Zosyn No febrile events Negative fluid balance She has stage I sacral ulcer Cultures negative to date Vitals/I&O/Wt Last Vital Signs Temp 99.5 F 10/02/21 04:30 Pulse 68 10/02/21 08:29 Resp 14 10/02/21 08:25 BP 109/55 10/02/21 06:45 Pulse Ox 97 10/02/21 08:25 10/01/21 10/02/21 10/02/21 22:59 06:59 14:59 Intake Total 386.004 / 705.724 271.996 / 977.720 354.584 / 354.584 Output Total 125 / 1025 Balance 386.004 / -194.276 146.996 / -47.280 354.584 / 354.584 Physical Exam Narrative: Patient is intubated and sedated Levophed running at 60 FiO2 30% PEEP 8 Yellow clear urine Patient does not look fluid overloaded clinically Bilateral breath sounds which are assisted Limited neuro exam Soft abdomen Stage I sacral ulcer Urinary Catheter Management: Mo: Cath Placed During This Visit: yes Reason for Continuing Indwelling Catheter: Accurate Measurement of Urinary Output in Critically Ill Patients Urinary Catheter Date of Insertion: 09/25/21 Urinary Catheter Time of Insertion: 20:29 Data : 10/02/21 04:47 10/02/21 04:47 Micro: Microbiology 09/30/21 13:00 Gram Stain - Final Sputum - Endotracheal Tube Aspirate Sputum Culture - Preliminary A&P Assessment and plan (1) Acute hyperkalemia: Status: Acute (2) Anemia: Status: Acute (3) HTN (hypertension): Status: Acute (4) Aortic valve stenosis: Status: Acute (5) Acute respiratory failure with hypoxia: Status: Acute (6) Mucus plugging of bronchi: Status: Acute (7) Respiratory failure: Status: Acute (8) CHF exacerbation: Status: Acute (9) Pneumonia: Status: Acute Plan Systolic congestive heart failure exacerbation Aortic valve severe stenosis Plan for angiogram We will extubate her after angiogram and then try to transfer her to a tertiary center for aortic valve replacement Worsening leukocytosis Requested blood cultures, added vancomycin to her Zosyn Cultures negative to date, she is afebrile She has stage I sacral ulcer Lot of secretion was suctioned after endotracheal tube placement This most likely is related to underlying pneumonia Will obtain CT chest, abdomen pelvis Patient does not have sepsis, Underlying severe aortic stenosis and cardiomyopathy most likely the etiology for low blood pressure, with PEEP of 8, judicious use of diuretics Respiratory failure, patient is intubated and sedated Minimal vent settings Plan for extubation after angiogram TAHIR: Resolved Anemia: Stable We will keep her n.p.o. for now We will touch base with cardiology Full code High risk for cardiac complications Attestations Medical Necessity Statement*: Continue ICU management Time Spent in Patient Care: 20mins Coding Level of Care Code Acute Handicapped Teacher for g Fwd Diagnoses Acute hyperkalemia E87.5 Anemia D64.9 HTN (hypertension) I10 Aortic valve stenosis I35.0 Acute respiratory failure with hypoxia J96.01 Mucus plugging of bronchi T17.500A Respiratory failure J96.90 CHF exacerbation I50.9 Pneumonia J18.9
--- NOTE | 2021-10-02 08:46 | PM.PN ---
Subjective Subjective: The events of the weekend were noted. Apparently the patient is respiratory distress with the possible worsening of the pneumonia. She remains intubated. White cell count is still elevated at 27,000. She remains afebrile. No significant arrhythmias on the monitor. The blood pressure has been stable. Medications: Medication Review Details: Current Medications Acetaminophen (Acetaminophen 500 Mg Tablet) 500 mg PO Q4H PRN PRN Reason: fever Last Admin: 09/29/21 13:07 Dose: 500 mg Documented by: Albuterol/Ipratropium (Ipratropium-Albuterol 3 Ml Neb) 3 ml INHALATION Q6H PRN PRN Reason: SHORTNESS OF BREATH Last Admin: 10/02/21 08:22 Dose: 3 ml Documented by: Enoxaparin Sodium (Enoxaparin 40 Mg/0.4 Ml Syringe) 40 mg SUBCUT Q24H [facility] Last Admin: 10/01/21 12:14 Dose: 40 mg Documented by: Folic Acid/Iron/Vitamin B12 (Iron Complex Forte Capsule) 1 each PO EVERY OTHER DAY [facility] Last Admin: 10/02/21 08:03 Dose: 1 each Documented by: Furosemide (Furosemide 40 Mg Tablet) 40 mg PO DAILY@0800 [facility] Furosemide (Furosemide 10 Mg/Ml Sdv 4ml) 40 mg IVP Q24H [facility] Last Admin: 10/01/21 12:14 Dose: 40 mg Documented by: Guaifenesin (Guaifenesin 600 Mg Tablet) 1,200 mg PO BID [facility] Last Admin: 10/02/21 08:03 Dose: 1,200 mg Documented by: Fentanyl 2,500 mcg/ Sodium (Chloride) 250 mls @ 0 mls/hr IV .Q0M [facility]; Protocol Last Titration: 09/30/21 15:40 Dose: 50 mcg/hr, 5 mls/hr Documented by: Midazolam HCl 100 mg/ Sodium (Chloride) 100 mls @ 0 mls/hr IV .Q0M [facility]; Protocol Last Admin: 10/01/21 10:22 Dose: 4 mg/hr, 4 mls/hr Documented by: Norepinephrine Bitartrate 8 mg (/ Dextrose) 508 mls @ 0 mls/hr IV .Q0M [facility]; Protocol Last Titration: 10/02/21 08:11 Dose: 14 mcg/min, 53.34 mls/hr Documented by: Piperacillin Sod/Tazobactam (Sod 3.375 gm/ Sodium Chloride) 50 mls @ 12.5 mls/hr IV Q8H [facility]; Protocol Last Infusion: 10/02/21 06:21 Dose: Infused Documented by: Vancomycin HCl 1,000 mg/ (Sodium Chloride) 250 mls @ 250 mls/hr IV Q18H [facility]; Protocol Last Admin: 10/02/21 07:50 Dose: 250 mls/hr Documented by: Losartan Potassium (Losartan 50 Mg Tablet) 25 mg PO DAILY [facility] Last Admin: 09/27/21 08:41 Dose: 25 mg Documented by: Metoprolol Tartrate (Metoprolol Tartrate 25 Mg Tablet) 12.5 mg PO BID [facility] Last Admin: 09/28/21 17:48 Dose: 12.5 mg Documented by: Senna/Docusate Sodium (Sennosides-Docusate Tablet) 1 tab PO DAILY [facility] Last Admin: 10/02/21 08:02 Dose: 1 tab Documented by: Spironolactone (Spironolactone 25 Mg Tablet) 25 mg PO DAILY [facility] Last Admin: 09/27/21 08:41 Dose: 25 mg Documented by: Vitals/I&O/Wt Last Vital Signs Temp 99.5 F 10/02/21 04:30 Pulse 68 10/02/21 08:29 Resp 14 10/02/21 08:25 BP 109/55 10/02/21 06:45 Pulse Ox 97 10/02/21 08:25 10/01/21 10/02/21 10/02/21 22:59 06:59 14:59 Intake Total 386.004 / 705.724 271.996 / 977.720 354.584 / 354.584 Output Total 125 / 1025 Balance 386.004 / -194.276 146.996 / -47.280 354.584 / 354.584 Physical Exam Narrative: GENERAL: The patient is intubated and sedated. HEENT: Minimal pallor. No icterus or lymphadenopathy.Oral cavity: No active bleeding from the oral cavity or from the nostrils NECK: Trachea appears to be central. No masses noted. RESPIRATORY: Chest is symmetrical. No intercostals muscle retraction or any accessory muscle activation. There is no chest wall tenderness. Breath sounds are heard bilaterally. Occasional coarse crackles at the bases BREASTS: Deferred. HEART: The heart sounds are normal. No S3 or S4. Ejection systolic murmur grade 4/6 in the aortic area. No diastolic murmurs. ABDOMEN: No vessel pulsations or distention. No tenderness. No organomegaly appreciated. Bowel sounds are normally heard. : Deferred. RECTAL: Deferred. LYMPHATIC: No lymphadenopathy noted in the neck . EXTREMITIES: No edema or cyanosis. No clubbing. Peripheral pulses are weak bilaterally MUSCULOSKELETAL: No acute joint deformities or swelling SKIN: There are no significant rashes or ecchymosis NEUROPSYCHIATRIC: Patient is intubated and sedated. Urinary Catheter Management: Mo: Cath Placed During This Visit: yes Reason for Continuing Indwelling Catheter: Accurate Measurement of Urinary Output in Critically Ill Patients Urinary Catheter Date of Insertion: 09/25/21 Urinary Catheter Time of Insertion: 20:29 Data : 10/02/21 04:47 10/02/21 04:47 Other Labs: Laboratory Last Values WBC 26.1 10^3/uL (4.0-10.0) H 10/02/21 04:47 RBC 3.56 10^6/uL (4.1-5.3) L 10/02/21 04:47 Hgb 10.3 g/dL (11.5-15.3) L 10/02/21 04:47 Hct 33.7 % (37.0-47.0) L 10/02/21 04:47 MCV 94.7 fl (81-99) 10/02/21 04:47 MCH 28.9 pg (28.0-34.0) 10/02/21 04:47 MCHC 30.6 g/dL (30.0-36.0) 10/02/21 04:47 RDW 14.3 % (12.1-15.1) 10/02/21 04:47 Plt Count 401 10^3/cmm (130-400) H 10/02/21 04:47 MPV 11.0 fL (7.4-10.4) H 10/02/21 04:47 Neut % (Auto) 63.1 % 10/02/21 04:47 Lymph % (Auto) 25.4 % 10/02/21 04:47 [place] % (Auto) 6.6 % 10/02/21 04:47 Eos % (Auto) 3.6 % 10/02/21 04:47 Baso % (Auto) 0.7 % 10/02/21 04:47 Neut # (Auto) 16.44 10^3/uL (1.8-7.7) H 10/02/21 04:47 Lymph # (Auto) 6.6 10^3/uL (0.8-4.8) H 10/02/21 04:47 [place] # (Auto) 1.7 10^3/uL (0.2-0.9) H 10/02/21 04:47 Eos # (Auto) 0.9 10^3/uL (0.0-0.8) H 10/02/21 04:47 Baso # (Auto) 0.2 10^3/uL (0.0-0.1) H 10/02/21 04:47 Nucleated RBC % (auto) 0 % 10/02/21 04:47 Nucleated RBCs # 0.0 /100WBC 10/02/21 04:47 Specimen Type Arterial 10/01/21 04:00 Sample Site Radial, right 10/01/21 04:00 ABG pH 7.50 (7.35-7.45) H 10/01/21 04:00 ABG pCO2 43.6 mmHg (35-45) 10/01/21 04:00 ABG pO2 76.5 mmHg (80.0-100.0) L 10/01/21 04:00 ABG HCO3 34.3 mmol/L (22-26) H 10/01/21 04:00 ABG O2 Saturation > 100.0 09/30/21 13:41 ABG Base Excess 10.1 mmol/L (-2.0-2.0) H 10/01/21 04:00 Solitario Test Pos 10/01/21 04:00 A-a O2 Gradient 45.3 mmHg (5-10) H 09/30/21 13:41 Hematocrit 31.7 % (37-47) L 10/01/21 04:00 Hgb O2 Saturation 98.5 % (95-100) 09/30/21 13:41 Carboxyhemoglobin 0.9 %THgb (0.4-20.1) 09/30/21 13:41 Methemoglobin 0.8 % (0.4-1.5) 09/30/21 13:41 Total Hemoglobin 10.9 g/dL (12-16) L 09/30/21 13:41 Sodium 135.0 mmol/L (131-143) 09/30/21 13:41 Potassium 5.2 mmol/L (3.5-5.0) H 09/30/21 13:41 Glucose 208.0 mg/dL (70-115) H 09/30/21 13:41 Ionized Calcium 1.2 mmol/L (1.1-1.4) 09/30/21 13:41 O2 Delivery Device Vent 10/01/21 04:00 FiO2 30.0 % 10/01/21 04:00 Tidal Volume 0.35 10/01/21 04:00 PEEP 8.0 cmH20 10/01/21 04:00 Assistant Mechanic ID sashape 10/01/21 04:00 Sodium 131 mmol/L (136-145) L 10/02/21 04:47 Potassium 4.5 mmol/L (3.5-5.1) 10/02/21 04:47 Chloride 92 mmol/L (98-107) L 10/02/21 04:47 Carbon Dioxide 28 mmol/L (22-29) 10/02/21 04:47 Anion Gap 15.5 (5-19) 10/02/21 04:47 BUN 16 mg/dL (8-23) 10/02/21 04:47 Creatinine 0.8 mg/dL (0.5-0.9) 10/02/21 04:47 GFR Calculation Not Reportable 10/02/21 04:47 Glucose 188 mg/dL (65-115) H 10/02/21 04:47 POC Glucose 266 mg/dL (70-110) H 09/28/21 20:21 Calculated Osmolality 278 mOsm/kg (285-295) L 10/02/21 04:47 Calcium 7.8 mg/dL (8.5-10.5) L 10/02/21 04:47 Magnesium 2.4 mg/dL (1.7-2.3) H 10/01/21 04:02 Iron 26 ug/dL (37-145) L 09/28/21 05:16 TIBC 230 mcg/dl 09/28/21 05:16 % Saturation 11.3 % (20-50) L 09/28/21 05:16 Unsat Iron Binding 204 ug/dL (112-347) 09/28/21 05:16 Ferritin 768 ng/mL (15-150) H 09/28/21 05:16 Total Bilirubin 0.3 mg/dL (0.15-1.2) 10/01/21 04:02 AST 56 U/L (0-32) H 10/01/21 04:02 ALT 81 U/L (0-33) H 10/01/21 04:02 Alkaline Phosphatase 93 IU/L (35-105) 10/01/21 04:02 Troponin T Gen 5 ng/L 36 ng/L (0-10) H 09/30/21 10:50 Troponin T Baseline Cancelled 09/25/21 20:55 Troponin T 120 Minute 70.47 ng/L (0-10) H 09/25/21 18:34 Delta Troponin T -12.53 ABS# (0-10) L 09/25/21 18:34 Troponin T Hi Sens 6Hr 69.07 ng/L (0-10) H 09/25/21 22:30 Troponin T Hi Sens 6Hr Delta -13.93 ng/L (0-12) L 09/25/21 22:30 C-Reactive Protein 33.9 mg/L (0.0-4.9) H 09/25/21 16:22 NT-Pro-B Natriuret Pep 98328 pg/mL (0-450) H 09/25/21 16:22 Total Protein 6.7 g/dL (6.6-8.7) 10/01/21 04:02 Albumin 2.6 g/dL (3.5-5.2) L 10/01/21 04:02 Globulin 4.1 g/dL (1.3-4.6) 10/01/21 04:02 Vitamin B12 607 pg/mL (232-1245) 09/28/21 05:16 Folate 17.5 ng/mL (4.8-37.3) 09/28/21 05:16 Procalcitonin 0.12 ng/mL (0-0.5) 09/25/21 18:34 TSH 1.49 uIU/mL (0.27-4.20) 09/25/21 20:55 Urine Color Yellow (Yellow) 09/25/21 20:30 Urine Appearance Clear (CLEAR) 09/25/21 20:30 Urine pH 5 (5-7) 09/25/21 20:30 Ur Specific [place] 1.020 (1.005-1.030) 09/25/21 20:30 Urine Protein 1+ (Negative) H 09/25/21 20:30 Urine Glucose (UA) Norm (Normal) 09/25/21 20:30 Urine Ketones Negative (Negative) 09/25/21 20:30 Urine Blood Neg (Negative) 09/25/21 20:30 Urine Nitrate Negative (Negative) 09/25/21 20:30 Urine Bilirubin Neg (Negative) 09/25/21 20:30 Urine Urobilinogen Norm mg/dL (Negative) 09/25/21 20:30 Ur Leukocyte Esterase Negative (Negative) 09/25/21 20:30 Urine RBC 0-4 /hpf (0-2) H 09/25/21 20:30 Urine WBC 0-4 /hpf (0-5) H 09/25/21 20:30 Ur Squamous Epith Cells 10-15 /hpf (0-5) H 09/25/21 20:30 Amorphous Sediment 1+ /hpf 09/25/21 20:30 Urine Bacteria 1+ /hpf (NONE) H 09/25/21 20:30 Hyaline Casts 5-10 /lpf H 09/25/21 20:30 Nasal Influ A H1 2009 PCR Not detected (NOT DETECT) 09/25/21 17:25 Coronavirus 229E (PCR) Not detected (NOT DETECT) 09/25/21 17:25 Influenza A (H1) PCR Not detected (NOT DETECT) 09/25/21 17:25 Influenza A (H3) PCR Not detected (NOT DETECT) 09/25/21 17:25 Influenza Type A Ag Cancelled 09/25/21 17:25 Influenza Type A (PCR) Not detected (NOT DETECT) 09/25/21 17:25 Influenza Type B Ag Cancelled 09/25/21 17:25 Influenza Type B (PCR) Not detected (NOT DETECT) 09/25/21 17:25 SARS-CoV-2 (PCR) Not detected (NOT DETECT) 09/25/21 17:25 Micro: Microbiology 09/30/21 13:00 Gram Stain - Final Sputum - Endotracheal Tube Aspirate Sputum Culture - Preliminary EKG 3: My Interpretation: The EKG done on 09/30/2021 revealed sinus rhythm with a frequent PVCs, poor R wave progression, left anterior fascicular block, features of LVH and nonspecific T wave changes. EKG computer-generated impression: Chest CTA 09/25/21 19:38 IMPRESSION: 1. Mucous plugging with in the left apicoposterior bronchus with alveolar airspace disease in the affected segment suggesting postobstructive atelectasis/pneumonia in the left upper lobe. Recommend followup chest imaging to insure resolution of these findings. 2. Diffuse, bilateral moderately severe areas of ground-glass opacification in a random distribution in both lungs. Differential diagnosis includes asymmetric pulmonary edema versus an atypical pneumonia, including viral organisms. Again, recommend followup chest imaging to insure resolution of these findings. 3. Evaluation of peripheral pulmonary arteries is limited beyond the segmental level secondary to the phase of contrast enhancement. No filling defects in the central pulmonary arteries to suggest a large pulmonary embolism. 4. Moderate bilateral pleural effusions. 5. Incidental/nonacute findings are listed in the report. Chest X-Ray 10/01/21 09:36 IMPRESSION: 1. Endotracheal tube is above the reba. 2. NG tube is in the stomach. 3. Low lung volumes in both lungs. 4. Right perihilar vascular congestion 5. Prominent left hilar soft tissues positional artifact . Chest/Abdomen/Pelvis CT 10/02/21 08:47 IMPRESSION: Findings consistent with interstitial pulmonary edema and potential air trapping versus sequela of early airspace pulmonary edema. There are also bilateral small volume pleural effusions and segmental atelectasis in the posterior left lung apex. IMPRESSION: 1. No acute intra-abdominal findings. 2. Punctate nonobstructing stone in the upper pole left kidney. A&P Assessment and plan (1) Aortic valve stenosis: She has a low-grade severe aortic valve stenosis. It does not appear to cause any hemodynamic compromise at this point. Status: Acute (2) CHF exacerbation: Patient has cardiomyopathy with LV ejection fraction of 30 to 35%. Her heart failure seems to be fairly compensated at this point. Status: Acute (3) Acute respiratory failure with hypoxia: This could be multifactorial. Heart failure coupled with pneumonia could be a major contributing factor. May continue on care for IV diuresis and antibiotic treatment. Status: Acute (4) HTN (hypertension): Currently normotensive. Status: Acute (5) Anemia: Anemia seems to be fairly stable. Status: Acute Plan This patient requires a cardiac catheterization, to further evaluate her coronary status and also decide on the aortic valve intervention. However because of the pneumonia, respiratory status and elevated white cell count, we may hold off on this for the time being. 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
--- NOTE | 2021-10-02 08:47 | CTR_ITS ---
PROCEDURE INFORMATION: Exam: CT Chest Without Contrast; Diagnostic Exam date and time: 10/02/2021 8:47 AM Age: 86 years old Clinical indication: Shortness of breath and other: Hypoxia, chf, afib; Patient HX: History--chf, afib, elevated wbc SOB on vent TECHNIQUE: Imaging protocol: Diagnostic computed tomography of the chest without contrast. Radiation optimization: All CT scans at this facility use at least one of these dose optimization techniques: automated exposure control; mA and/or kV adjustment per patient size (includes targeted exams where dose is matched to clinical indication); or iterative reconstruction. COMPARISON: CT angio chest PE protcl [id number] 09/25/2021 9:10 PM RADIATION DOSE METRICS: Total DLP (mGy-cm): 1441.14 FINDINGS: Lungs: Interlobular septal thickening noted within both lungs with mosaic attenuation pattern. Minor posterior atelectasis of the lungs adjacent to the pleural effusions. There is also segmental atelectasis in the posterior left lung apex. Pleural spaces: Small volume pleural effusions. No pneumothorax. Heart: Coronary artery calcifications noted. No cardiomegaly. No pericardial effusion. Aorta: No aortic aneurysm. Lymph nodes: No enlarged lymph nodes. Bones/joints: No acute fracture. Generalized osseous demineralization with multifocal chronic appearing moderate vertebral body height loss of several mid and lower thoracic vertebrae. Soft tissues: Unremarkable. Other findings: Endotracheal tube noted positioned above the reba. PROCEDURE INFORMATION: Exam: CT Abdomen And Pelvis Without Contrast Exam date and time: 10/02/2021 8:47 AM Age: 86 years old Clinical indication: Shortness of breath and other: Hypoxia, chf, afib; Patient HX: History--chf, afib, elevated wbc SOB on vent TECHNIQUE: Imaging protocol: Computed tomography of the abdomen and pelvis without contrast. Radiation optimization: All CT scans at this facility use at least one of these dose optimization techniques: automated exposure control; mA and/or kV adjustment per patient size (includes targeted exams where dose is matched to clinical indication); or iterative reconstruction. COMPARISON: CT angio chest PE protcl [id number] 09/25/2021 9:10 PM RADIATION DOSE METRICS: Total DLP (mGy-cm): 1441.14 FINDINGS: Liver: Normal. No mass. Gallbladder and bile ducts: Normal. No calcified stones. No ductal dilation. Pancreas: Normal. No ductal dilation. Spleen: Normal. No splenomegaly. Adrenal glands: Normal. No mass. Kidneys and ureters: Punctate nonobstructing stone in the upper pole the left kidney. No hydronephrosis. Stomach and bowel: Enteric tube terminates in the stomach. Scattered colonic diverticula. No obstruction. No mucosal thickening. Appendix: No evidence of appendicitis. Intraperitoneal space: No free air. No significant fluid collection. Vasculature: No abdominal aortic aneurysm. Lymph nodes: Unremarkable. No enlarged lymph nodes. Urinary bladder: Mo catheter noted within the bladder with intraluminal air. Reproductive: Unremarkable as visualized. Bones/joints: No acute fracture. Generalized osseous demineralization with chronic appearing moderate vertebral body height loss of several lower thoracic and upper lumbar vertebral bodies. Soft tissues: Trace foci of air in the left lower abdominal wall likely due to injection sites. CT/CT chest abd pel wo con IMPRESSION: Findings consistent with interstitial pulmonary edema and potential air trapping versus sequela of early airspace pulmonary edema. There are also bilateral small volume pleural effusions and segmental atelectasis in the posterior left lung apex. IMPRESSION: 1. No acute intra-abdominal findings. 2. Punctate nonobstructing stone in the upper pole left kidney.
--- NOTE | 2021-10-02 10:42 | PC.CHAP ---
Pastoral Care Encounter/Spiritual Assessment Type of Contact [] Declined house manager visit [] Patient/Family/Request visit [] Outpatient visit [] Follow-up visit [] Physician referral [] Code/Alert [x Routine visit [] Staff referral [] Actively dying [] Patient sleeping [x] Family support [] [] Out of room [] Palliative care [] [] Receiving care in room [] Pre-surgical visit [] Trauma [] Long length of stay [x] ICU visit [x] Other: vent.. spoke to daughter Relational/Emotional Strength [] Patient feels connected with others/family/visitors/staff [] Distress [] Loneliness/isolation [] Abandonment Spirituality of Patient [] Person of Irish [] Attends Holiness of their Irish [] Believes in Prayer [] Reads Bible or Anglican materials [] There are Spiritual issues to be addressed Wagon Driller Interventions [x Prayer [] Active listening [] Non-anxious presence [] Spiritual/emotional support [] Crisis/trauma care [] Spiritual counseling [] Bereavement support [] Provided bereavement packet [] Provided Bible/devotional materials [] Provided toy/stuffed animal, coloring book to patient or family member [] Provided Communion [] Anointing/[place] [] Salvation [x] Completed spiritual assessment [] Other: Impact on Illness or Injury [] Angry [] Fearful [] Anxious [] Often cries [] Exhaustion [] Unable to work [] Unable to attend shinto [] Unable to walk/stand [] Unable to read [] Unable to drive [] Unable to eat/drink [] Unable to sleep [] Unable to be with family [] Patient intubated [] Other: Summary Time spent with patient
[2021-10-02] MEDS: norepinephrine 8 MG in dextrose 5 % 500 ML 53.34 MG IV (10:46)
--- NOTE | 2021-10-02 11:03 | PC.OT ---
OT EVALUATION ATTEMPTED. PATIENT IS SEDATED ON VENT AT THIS TIME. WILL ATTEMPT AGAIN TOMORROW.
[2021-10-02] MEDS: FUROsemide 10 mg/mL SDV 4mL 40 MG IVP (11:42)
[2021-10-02] MEDS: enoxaparin 40 mg/0.4 mL Syringe SUBCUT (11:42)
--- NOTE | 2021-10-02 15:33 | PC.SOCIAL ---
IMM Updated Updated pt's family on IMM. No questions voiced. Provided daughter a copy. Initialed, dated, & timed copy in chart.
[2021-10-02] MEDS: norepinephrine 8 MG in dextrose 5 % 500 ML 38.1 MG IV (23:50)
[2021-10-03] VITALS (102 sets, daily range): BP systolic 76–113; BP diastolic 40–60; PULSE 56–82; RESP 14–17; TEMP 37.1–38.4; O2SAT 88–100
[2021-10-03] MEDS: vancomycin 1,000 MG in sodium chloride 0.9% 250 ML 250 MG IV ×2 (02:29→20:39)
[2021-10-03] MEDS: piperacillin-tazobactam 3.375 GM in sodium chloride 0.9% (plus) 50 ML IV ×3 (02:32→18:23)
[2021-10-03 04:32] LABS: ABG PCO2 45.2 mmHg (35-45); ABG PH Result 7.48 (7.35-7.45); Base Excess ABG 8.7 mmol/L (-2.0-2.0); Blood Gas Allen Test Pos; Blood Gas Sample Site Radial, right; Blood Gas Sample Type Arterial; Blood Gas Tidal Volume 0.32; HCO3 ABG 33.4 mmol/L (22-26); Oxygen Device VENT; PO2 ABG 81.2 mmHg (80.0-100.0)
[2021-10-03 04:51] LABS: Basophils # 0.2 10^3/uL (0.0-0.1); Basophils % 0.8 %; Eosinophils # 0.8 10^3/uL (0.0-0.8); Eosinophils % 3.6 %; Hematocrit 33.3 % (37.0-47.0); Hemoglobin 10.1 g/dL (11.5-15.3); Lymphocytes # 5.1 10^3/uL (0.8-4.8); Lymphocytes % 24.4 %; Mean Corpuscular HGB Conc 30.3 g/dL (30.0-36.0); Mean Corpuscular Hemoglobin 28.9 pg (28.0-34.0); Mean Corpuscular Volume 95.1 fl (81-99); Mean Platelet Volume 9.5 fL (7.4-10.4); Monocytes # 1.6 10^3/uL (0.2-0.9); Monocytes % 7.4 %; Neutrophils % 63.3 %; Nucleated Red Blood Cells % 0 %; Platelet Count 354 10^3/cmm (130-400); Red Cell Distribution Width 14.3 % (12.1-15.1)
[2021-10-03 05:11] LABS: Blood Urea Nitrogen 13 mg/dL (8-23); Calcium 8.4 mg/dL (8.5-10.5); Carbon Dioxide 27 mmol/L (22-29); Chloride 94 mmol/L (98-107); Glucose 147 mg/dL (65-115); Osmolality Calculated 275 mOsm/kg (285-295); Sodium 131 mmol/L (136-145)
[2021-10-03 05:13] LABS: Anion Gap 14.3 (5-19); Potassium 4.3 mmol/L (3.5-5.1)
[2021-10-03] MEDS: norepinephrine 8 MG in dextrose 5 % 500 ML 38.1 MG IV ×2 (07:01→13:31)
[2021-10-03] MEDS: guaiFENesin 600 mg Tablet 1200 MG PO ×2 (08:23→17:20)
[2021-10-03] MEDS: sennosides-docusate Tablet 1 TAB PO (08:23)
--- NOTE | 2021-10-03 09:16 | USCV_ITS ---
Ria Katz Age: 86 Gender: F : 1935 Exam Date: 10/03/2021 09:37 Ordering Phys: Eryn Short MD ([email or web address]) Technologist: RAJI [place] [facility] [place] as BP: 102 / 48 HR: Rhythm: Sinus Technical Quality: Adequate MEASUREMENTS (Male / Female) Normal Values 2D ECHO LV Diastolic Diameter PLAX 5.0 cm 4.2 - 5.9 / 3.9 - 5.3 cm LV Systolic Diameter PLAX 3.2 cm IVS Diastolic Thickness 1.1 cm 0.6 - 1.0 / 0.6 - 0.9 cm IVS Systolic Thickness 1.4 cm LVPW Diastolic Thickness 1.1 cm 0.6 - 1.0 / 0.6 - 0.9 cm LVPW Systolic Thickness 1.4 cm LVOT Diameter 2.0 cm LV Ejection Fraction 2D Teich 62.4 % LV Ejection Fraction MOD 2C 54.8 % LV Ejection Fraction 2C AL 54.8 % LA Diameter 3.7 cm Aorta at Sinotubular Diameter 2.5 cm M-MODE Aortic Annulus Diameter 3.0 cm LA Ao Ratio MM 1.4 DOPPLER AV Peak Velocity 529.0 cm/s LVOT Peak Velocity 77.0 cm/s AV Area Cont Eq vti 0.5 cm squared AV Area Cont Eq pk 0.5 cm squared FINDINGS Left Ventricle Normal LV size with very diminished ejection fraction of around 40 to 45%. Mild diffuse hypokinesia of the inferolateral wall. Somewhat dyskinetic basal inferior wall segment Right Ventricle Normal right ventricular size and systolic function. Right Atrium The right atrium is normal in size. Left Atrium Mildly increased left atrial size. Mitral Valve Mild mitral valve regurgitation. Thickened mitral valve with moderate to heavy mitral annular calcification. Aortic Valve Trace to mild aortic valve regurgitation. Severe aortic valve stenosis with a valve area of 0.5 cm squire. Peak velocity of 5.29 m/s. With a peak gradient of 112 mmHg and a mean gradient of 59 mmHg. Moderate to heavy calcification. No masses or vegetations noted Tricuspid Valve Thickened tricuspid valve. Pulmonic Valve Pulmonic valve not well visualized. Pericardium Normal pericardium without effusion. Aorta Normal aortic annulus size. CONCLUSIONS Severe aortic valve stenosis with a valve area of 0.5 cm squire. Peak velocity of 5.29 m/s. With a peak gradient of 112 mmHg and a mean gradient of 59 mmHg. Normal LV size with very diminished ejection fraction of around 40 to 45%. Wall motion normalities as mentioned above Mildly increased left atrial size. No intracardiac masses or vegetations. Mild mitral valve regurgitation. Thickened mitral valve with moderate to heavy mitral annular calcification. Comparison with the previous study is difficult because of the difference in the technical quality. Dr Eryn Short MD [facility] (Electronically Signed) Final Date: 03 October 2021 15:23 S
--- NOTE | 2021-10-03 09:36 | PM.PN ---
Subjective Subjective: Patient is still remaining intubated. The oxygen requirement is coming down. She is still hypotensive and is requiring pressure support. She is on norepinephrine 10 mics per minute. Has a low-grade temp of 99.6. Currently sedated. Medications: Medication Review Details: Current Medications Acetaminophen (Acetaminophen 500 Mg Tablet) 500 mg PO Q4H PRN PRN Reason: fever Last Admin: 09/29/21 13:07 Dose: 500 mg Documented by: Albuterol/Ipratropium (Ipratropium-Albuterol 3 Ml Neb) 3 ml INHALATION Q6H PRN PRN Reason: SHORTNESS OF BREATH Last Admin: 10/02/21 19:56 Dose: 3 ml Documented by: Enoxaparin Sodium (Enoxaparin 40 Mg/0.4 Ml Syringe) 40 mg SUBCUT Q24H [facility] Last Admin: 10/02/21 11:42 Dose: 40 mg Documented by: Folic Acid/Iron/Vitamin B12 (Iron Complex Forte Capsule) 1 each PO EVERY OTHER DAY [facility] Last Admin: 10/02/21 08:03 Dose: 1 each Documented by: Furosemide (Furosemide 40 Mg Tablet) 40 mg PO DAILY@0800 [facility] Furosemide (Furosemide 10 Mg/Ml Sdv 4ml) 40 mg IVP Q24H [facility] Last Admin: 10/02/21 11:42 Dose: 40 mg Documented by: Guaifenesin (Guaifenesin 600 Mg Tablet) 1,200 mg PO BID [facility] Last Admin: 10/03/21 08:23 Dose: 1,200 mg Documented by: Fentanyl 2,500 mcg/ Sodium (Chloride) 250 mls @ 0 mls/hr IV .Q0M [facility]; Protocol Last Titration: 10/03/21 07:28 Dose: 50 mcg/hr, 5 mls/hr Documented by: Midazolam HCl 100 mg/ Sodium (Chloride) 100 mls @ 0 mls/hr IV .Q0M [facility]; Protocol Last Titration: 10/03/21 07:28 Dose: 4 mg/hr, 4 mls/hr Documented by: Norepinephrine Bitartrate 8 mg (/ Dextrose) 508 mls @ 0 mls/hr IV .Q0M [facility]; Protocol Last Titration: 10/03/21 07:28 Dose: 10 mcg/min, 38.1 mls/hr Documented by: Piperacillin Sod/Tazobactam (Sod 3.375 gm/ Sodium Chloride) 50 mls @ 12.5 mls/hr IV Q8H [facility]; Protocol Last Infusion: 10/03/21 06:32 Dose: Infused Documented by: Vancomycin HCl 1,000 mg/ (Sodium Chloride) 250 mls @ 250 mls/hr IV Q18H [facility]; Protocol Last Infusion: 10/03/21 03:29 Dose: Infused Documented by: Losartan Potassium (Losartan 50 Mg Tablet) 25 mg PO DAILY [facility] Last Admin: 09/27/21 08:41 Dose: 25 mg Documented by: Metoprolol Tartrate (Metoprolol Tartrate 25 Mg Tablet) 12.5 mg PO BID [facility] Last Admin: 09/28/21 17:48 Dose: 12.5 mg Documented by: Senna/Docusate Sodium (Sennosides-Docusate Tablet) 1 tab PO DAILY [facility] Last Admin: 10/03/21 08:23 Dose: 1 tab Documented by: Spironolactone (Spironolactone 25 Mg Tablet) 25 mg PO DAILY [facility] Last Admin: 09/27/21 08:41 Dose: 25 mg Documented by: Vitals/I&O/Wt Last Vital Signs Temp 99.9 F H 10/03/21 07:00 Pulse 63 10/03/21 09:00 Resp 14 10/03/21 07:00 BP 98/49 10/03/21 09:00 Pulse Ox 96 10/03/21 09:00 10/02/21 10/03/21 10/03/21 22:59 06:59 14:59 Intake Total 539.166 / 1589.645 516.027 / 2105.672 564.252 / 564.252 Output Total 500 / 950 750 / 1700 90 / 90 Balance 39.166 / 639.645 -233.973 / 405.672 474.252 / 474.252 Physical Exam Narrative: GENERAL: The patient is intubated and sedated. HEENT: Minimal pallor.? No icterus or lymphadenopathy.Oral cavity: No active bleeding from the oral cavity or from the nostrils. 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 No masses noted. RESPIRATORY: Chest is symmetrical. No intercostals muscle retraction or any accessory muscle activation. There is no chest wall tenderness. Breath sounds are heard bilaterally.? Occasional? coarse crackles at the bases BREASTS: Deferred. HEART: The heart sounds are normal.? No S3 or S4.? Ejection systolic murmur grade 4/6 in the aortic area.? No diastolic murmurs. ABDOMEN: No vessel pulsations or distention. No tenderness. No organomegaly appreciated.? Bowel sounds are normally heard. : Deferred. RECTAL: Deferred. LYMPHATIC: No lymphadenopathy noted in the neck . EXTREMITIES: No edema or cyanosis. No clubbing.? Peripheral pulses are weak bilaterally MUSCULOSKELETAL: No acute joint deformities or swelling SKIN: There are no significant rashes or ecchymosis NEUROPSYCHIATRIC: Patient is intubated and sedated Urinary Catheter Management: Mo: Cath Placed During This Visit: yes Reason for Continuing Indwelling Catheter: Accurate Measurement of Urinary Output in Critically Ill Patients Urinary Catheter Date of Insertion: 09/25/21 Urinary Catheter Time of Insertion: 20:29 Data : 10/03/21 04:40 10/03/21 04:40 Other Labs: Laboratory Last Values WBC 21.0 10^3/uL (4.0-10.0) H 10/03/21 04:40 RBC 3.50 10^6/uL (4.1-5.3) L 10/03/21 04:40 Hgb 10.1 g/dL (11.5-15.3) L 10/03/21 04:40 Hct 33.3 % (37.0-47.0) L 10/03/21 04:40 MCV 95.1 fl (81-99) 10/03/21 04:40 MCH 28.9 pg (28.0-34.0) 10/03/21 04:40 MCHC 30.3 g/dL (30.0-36.0) 10/03/21 04:40 RDW 14.3 % (12.1-15.1) 10/03/21 04:40 Plt Count 354 10^3/cmm (130-400) 10/03/21 04:40 MPV 9.5 fL (7.4-10.4) 10/03/21 04:40 Neut % (Auto) 63.3 % 10/03/21 04:40 Lymph % (Auto) 24.4 % 10/03/21 04:40 [place] % (Auto) 7.4 % 10/03/21 04:40 Eos % (Auto) 3.6 % 10/03/21 04:40 Baso % (Auto) 0.8 % 10/03/21 04:40 Neut # (Auto) 13.30 10^3/uL (1.8-7.7) H 10/03/21 04:40 Lymph # (Auto) 5.1 10^3/uL (0.8-4.8) H 10/03/21 04:40 [place] # (Auto) 1.6 10^3/uL (0.2-0.9) H 10/03/21 04:40 Eos # (Auto) 0.8 10^3/uL (0.0-0.8) 10/03/21 04:40 Baso # (Auto) 0.2 10^3/uL (0.0-0.1) H 10/03/21 04:40 Nucleated RBC % (auto) 0 % 10/03/21 04:40 Nucleated RBCs # 0.0 /100WBC 10/03/21 04:40 Specimen Type Arterial 10/03/21 04:20 Sample Site Radial, right 10/03/21 04:20 ABG pH 7.48 (7.35-7.45) H 10/03/21 04:20 ABG pCO2 45.2 mmHg (35-45) H 10/03/21 04:20 ABG pO2 81.2 mmHg (80.0-100.0) 10/03/21 04:20 ABG HCO3 33.4 mmol/L (22-26) H 10/03/21 04:20 ABG O2 Saturation > 100.0 09/30/21 13:41 ABG Base Excess 8.7 mmol/L (-2.0-2.0) H 10/03/21 04:20 Solitario Test Pos 10/03/21 04:20 A-a O2 Gradient 45.3 mmHg (5-10) H 09/30/21 13:41 Hematocrit 42.0 % (37-47) 10/03/21 04:20 Hgb O2 Saturation 98.5 % (95-100) 09/30/21 13:41 Carboxyhemoglobin 0.9 %THgb (0.4-20.1) 09/30/21 13:41 Methemoglobin 0.8 % (0.4-1.5) 09/30/21 13:41 Total Hemoglobin 10.9 g/dL (12-16) L 09/30/21 13:41 Sodium 135.0 mmol/L (131-143) 09/30/21 13:41 Potassium 5.2 mmol/L (3.5-5.0) H 09/30/21 13:41 Glucose 208.0 mg/dL (70-115) H 09/30/21 13:41 Ionized Calcium 1.2 mmol/L (1.1-1.4) 09/30/21 13:41 O2 Delivery Device Vent 10/03/21 04:20 FiO2 28.0 % 10/03/21 04:20 Tidal Volume 0.32 10/03/21 04:20 PEEP 8.0 cmH20 10/03/21 04:20 Ironer Or Presser ID Hinja 10/03/21 04:20 Sodium 131 mmol/L (136-145) L 10/03/21 04:40 Potassium 4.3 mmol/L (3.5-5.1) 10/03/21 04:40 Chloride 94 mmol/L (98-107) L 10/03/21 04:40 Carbon Dioxide 27 mmol/L (22-29) 10/03/21 04:40 Anion Gap 14.3 (5-19) 10/03/21 04:40 BUN 13 mg/dL (8-23) 10/03/21 04:40 Creatinine 0.6 mg/dL (0.5-0.9) 10/03/21 04:40 GFR Calculation Not Reportable 10/03/21 04:40 Glucose 147 mg/dL (65-115) H 10/03/21 04:40 POC Glucose 266 mg/dL (70-110) H 09/28/21 20:21 Calculated Osmolality 275 mOsm/kg (285-295) L 10/03/21 04:40 Calcium 8.4 mg/dL (8.5-10.5) L 10/03/21 04:40 Magnesium 2.4 mg/dL (1.7-2.3) H 10/01/21 04:02 Iron 26 ug/dL (37-145) L 09/28/21 05:16 TIBC 230 mcg/dl 09/28/21 05:16 % Saturation 11.3 % (20-50) L 09/28/21 05:16 Unsat Iron Binding 204 ug/dL (112-347) 09/28/21 05:16 Ferritin 768 ng/mL (15-150) H 09/28/21 05:16 Total Bilirubin 0.3 mg/dL (0.15-1.2) 10/01/21 04:02 AST 56 U/L (0-32) H 10/01/21 04:02 ALT 81 U/L (0-33) H 10/01/21 04:02 Alkaline Phosphatase 93 IU/L (35-105) 10/01/21 04:02 Troponin T Gen 5 ng/L 36 ng/L (0-10) H 09/30/21 10:50 Troponin T Baseline Cancelled 09/25/21 20:55 Troponin T 120 Minute 70.47 ng/L (0-10) H 09/25/21 18:34 Delta Troponin T -12.53 ABS# (0-10) L 09/25/21 18:34 Troponin T Hi Sens 6Hr 69.07 ng/L (0-10) H 09/25/21 22:30 Troponin T Hi Sens 6Hr Delta -13.93 ng/L (0-12) L 09/25/21 22:30 C-Reactive Protein 33.9 mg/L (0.0-4.9) H 09/25/21 16:22 NT-Pro-B Natriuret Pep 14808 pg/mL (0-450) H 09/25/21 16:22 Total Protein 6.7 g/dL (6.6-8.7) 10/01/21 04:02 Albumin 2.6 g/dL (3.5-5.2) L 10/01/21 04:02 Globulin 4.1 g/dL (1.3-4.6) 10/01/21 04:02 Vitamin B12 607 pg/mL (232-1245) 09/28/21 05:16 Folate 17.5 ng/mL (4.8-37.3) 09/28/21 05:16 Procalcitonin 0.12 ng/mL (0-0.5) 09/25/21 18:34 TSH 1.49 uIU/mL (0.27-4.20) 09/25/21 20:55 Urine Color Yellow (Yellow) 09/25/21 20:30 Urine Appearance Clear (CLEAR) 09/25/21 20:30 Urine pH 5 (5-7) 09/25/21 20:30 Ur Specific [place] 1.020 (1.005-1.030) 09/25/21 20:30 Urine Protein 1+ (Negative) H 09/25/21 20:30 Urine Glucose (UA) Norm (Normal) 09/25/21 20:30 Urine Ketones Negative (Negative) 09/25/21 20:30 Urine Blood Neg (Negative) 09/25/21 20:30 Urine Nitrate Negative (Negative) 09/25/21 20:30 Urine Bilirubin Neg (Negative) 09/25/21 20:30 Urine Urobilinogen Norm mg/dL (Negative) 09/25/21 20:30 Ur Leukocyte Esterase Negative (Negative) 09/25/21 20:30 Urine RBC 0-4 /hpf (0-2) H 09/25/21 20:30 Urine WBC 0-4 /hpf (0-5) H 09/25/21 20:30 Ur Squamous Epith Cells 10-15 /hpf (0-5) H 09/25/21 20:30 Amorphous Sediment 1+ /hpf 09/25/21 20:30 Urine Bacteria 1+ /hpf (NONE) H 09/25/21 20:30 Hyaline Casts 5-10 /lpf H 09/25/21 20:30 Nasal Influ A H1 2008 PCR Not detected (NOT DETECT) 09/25/21 17:25 Coronavirus 229E (PCR) Not detected (NOT DETECT) 09/25/21 17:25 Influenza A (H1) PCR Not detected (NOT DETECT) 09/25/21 17:25 Influenza A (H3) PCR Not detected (NOT DETECT) 09/25/21 17:25 Influenza Type A Ag Cancelled 09/25/21 17:25 Influenza Type A (PCR) Not detected (NOT DETECT) 09/25/21 17:25 Influenza Type B Ag Cancelled 09/25/21 17:25 Influenza Type B (PCR) Not detected (NOT DETECT) 09/25/21 17:25 SARS-CoV-2 (PCR) Not detected (NOT DETECT) 09/25/21 17:25 Micro: Microbiology 10/02/21 10:21 Blood Culture - Preliminary Blood SPECIMEN COLLECTED 10/02/21 10:18 Blood Culture - Preliminary Blood SPECIMEN COLLECTED 09/30/21 13:00 Gram Stain - Final Sputum - Endotracheal Tube Aspirate Sputum Culture - Final EKG 3: EKG computer-generated impression: Chest CTA 09/25/21 19:38 IMPRESSION: 1. Mucous plugging with in the left apicoposterior bronchus with alveolar airspace disease in the affected segment suggesting postobstructive atelectasis/pneumonia in the left upper lobe. Recommend followup chest imaging to insure resolution of these findings. 2. Diffuse, bilateral moderately severe areas of ground-glass opacification in a random distribution in both lungs. Differential diagnosis includes asymmetric pulmonary edema versus an atypical pneumonia, including viral organisms. Again, recommend followup chest imaging to insure resolution of these findings. 3. Evaluation of peripheral pulmonary arteries is limited beyond the segmental level secondary to the phase of contrast enhancement. No filling defects in the central pulmonary arteries to suggest a large pulmonary embolism. 4. Moderate bilateral pleural effusions. 5. Incidental/nonacute findings are listed in the report. Chest X-Ray 10/01/21 09:36 IMPRESSION: 1. Endotracheal tube is above the reba. 2. NG tube is in the stomach. 3. Low lung volumes in both lungs. 4. Right perihilar vascular congestion 5. Prominent left hilar soft tissues positional artifact . Chest/Abdomen/Pelvis CT 10/02/21 08:47 IMPRESSION: Findings consistent with interstitial pulmonary edema and potential air trapping versus sequela of early airspace pulmonary edema. There are also bilateral small volume pleural effusions and segmental atelectasis in the posterior left lung apex. IMPRESSION: 1. No acute intra-abdominal findings. 2. Punctate nonobstructing stone in the upper pole left kidney. A&P Assessment and plan (1) Hypotension: This could be multifactorial. Sepsis could be a major contributing factor. Aortic valve stenosis, LV dysfunction etc. also are playing a role. She is currently on norepinephrine. The dose may be titrated to keep the mean pressure above 70 mmHg. Status: Acute (2) Aortic valve stenosis: She has a low-grade severe aortic valve stenosis. I may go ahead and do a limited 2D echocardiogram mainly to look at the aortic valve to see any vegetations. Also will do an aortic valve gradient along with LV ejection fraction. Status: Acute (3) CHF exacerbation: Patient has cardiomyopathy with LV ejection fraction of 30 to 35%. Her heart failure seems to be fairly compensated at this point. Continue on careful IV diuresis on a as needed basis. Status: Acute (4) Acute respiratory failure with hypoxia: This could be multifactorial. Heart failure coupled with pneumonia could be a major contributing factor. May continue on care for IV diuresis and antibiotic treatment. Her oxygenation requirement seems to be coming down. Status: Acute (5) Anemia: Anemia seems to be fairly stable. Status: Acute Plan This patient requires a cardiac catheterization, to further evaluate her coronary status and also decide on the aortic valve intervention. However because of the pneumonia, respiratory status and elevated white cell count, we may hold off on this for the time being. Discussed with the patient's family -the daughter , about current cardiovascular status and the treatment plan. Her daughter understood this well. All her questions were answered to her satisfaction Attestations Medical Necessity Statement*: Patient requires continued hospital stay for close monitoring and further management Coding Level of Care Code Acute Feed Weigher for Renetta Olivares History Detailed Exam Detailed Medical Decision Making Moderate Complexity Diagnoses Aortic valve stenosis I35.0 CHF exacerbation I50.9 Acute respiratory failure with hypoxia J96.01 Anemia D64.9 Hypotension I95.9
[2021-10-03] MEDS: sodium chloride 0.9% 500 ML IV (11:07)
[2021-10-03] MEDS: enoxaparin 40 mg/0.4 mL Syringe SUBCUT (11:07)
--- NOTE | 2021-10-03 12:12 | PC.NUTR ---
Pt is NPO day 3. If tube feeding is medically appropriate, recommend consideration of Jevity 1.2 beginning at 15 ml/hr, increasing 10 ml/hr Q8H as tolerated to a goal rate of 35 ml/hr, with flushes of 100 mls Q4H. Details in RD assessment.
--- NOTE | 2021-10-03 13:46 | PM.PN ---
Subjective Subjective: Patient has low-grade temperature On review of records it seems like she has persistent leukocytosis with baseline white count around 11-15,000, baseline hemoglobin around 10 Cultures negative so far She is on broad-spectrum antibiotics She still requiring levo Clinically looks dry We will hold her Lasix this morning, will give her a low-dose bolus, Still no plan for angiogram because of underlying concern for infection however source has not been identified she does have some stage I sacral ulcer which does not look infected I will check cortisol level Wean off levo, currently at 10gs Minimal vent settings Case discussed with Dr. Short CT chest abdomen pelvis unremarkable Vitals/I&O/Wt Last Vital Signs Temp 99.6 F 10/03/21 12:30 Pulse 65 10/03/21 12:30 Resp 14 10/03/21 10:42 BP 98/48 10/03/21 12:30 Pulse Ox 97 10/03/21 12:30 10/02/21 10/03/21 10/03/21 22:59 06:59 14:59 Intake Total 539.166 / 1589.645 516.027 / 2105.672 811.957 / 811.957 Output Total 500 / 950 750 / 1700 90 / 90 Balance 39.166 / 639.645 -233.973 / 405.672 721.957 / 721.957 Physical Exam Narrative: Patient intubated sedated Currently on levo fentanyl and Versed Clinically looks euvolemic Sinus rhythm Blood pressure is soft Dilute urine in the bag Abdomen soft Bilateral assisted breath sounds Neuro exam limited Stage I sacral ulcer without signs of infection Urinary Catheter Management: Mo: Cath Placed During This Visit: yes Reason for Continuing Indwelling Catheter: Accurate Measurement of Urinary Output in Critically Ill Patients Urinary Catheter Date of Insertion: 09/25/21 Urinary Catheter Time of Insertion: 20:29 Data : 10/03/21 04:40 10/03/21 04:40 Micro: Microbiology 10/02/21 10:21 Blood Culture - Preliminary Blood NEGATIVE TO DATE 10/02/21 10:18 Blood Culture - Preliminary Blood NEGATIVE TO DATE 09/30/21 13:00 Gram Stain - Final Sputum - Endotracheal Tube Aspirate Sputum Culture - Final A&P Assessment and plan (1) Hypotension: Status: Acute (2) Acute hyperkalemia: Status: Acute (3) Anemia: Status: Acute (4) Aortic valve stenosis: Status: Acute (5) Acute respiratory failure with hypoxia: Status: Acute (6) Mucus plugging of bronchi: Status: Acute (7) Respiratory failure: Status: Acute (8) CHF exacerbation: Status: Acute (9) Pneumonia: Status: Acute (10) Ulcer of sacral region, stage 1: Status: Acute Plan Acute hypoxic respiratory failure Requiring mechanical ventilation Intubated and sedated Plan is to keep her intubated until she is ready for coronary angiogram She is still requiring vasopressors Repeat CT scan of chest did not show active consolidation, changes consistent with pulmonary edema Systolic congestive heart failure exacerbation Low albumin It is associated with higher mortality morbidity I will avoid scheduled doses of albumin, 1 dose of albumin because of hypotension Wean off Levophed No signs of septic shock Judicious use of midodrine Cut back on Lasix Low albumin 1 bag given today Hypotension related to underlying severe aortic stenosis Pulmonary edema on CT chest, On empirical broad-spectrum antibiotic coverage Cultures negative Low-grade fever noted Request D-dimer again, CT was negative for PE, I will continue her broad-spectrum antibiotics for now Severe aortic stenosis Will need TAVR Coronary angiogram before TAVR once she is off levo and leukocytosis improved Severe leukocytosis persisting On review of records since 2019 her white count has been high between 11-15,000 Leukocytosis trending down today Avoid stress dose steroids Check random cortisol TSH is normal If she becomes febrile, might benefit from bronchoalveolar lavage bronchoscopy Minerva: Resolved Anemia stable baseline hemoglobin stays between 9-10 Full code Family updated Case discussed with Dr. Han Espinal Medical Necessity Statement*: continue icu management Time Spent in Patient Care: 30mins Coding Level of Care Code Acute Electronic Device Monitor for Chg Fwd Diagnoses Hypotension I95.9 Acute hyperkalemia E87.5 Anemia D64.9 Aortic valve stenosis I35.0 Acute respiratory failure with hypoxia J96.01 Mucus plugging of bronchi T17.500A Respiratory failure J96.90 CHF exacerbation I50.9 Pneumonia J18.9 Ulcer of sacral region, stage 1 L98.429
[2021-10-03 14:40] LABS: Cortisol Random 14.82 ug/dL (2.47-19.5)
[2021-10-03] MEDS: midodrine 5 mg TABLET PO ×2 (14:53→20:38)
[2021-10-03] MEDS: albumin 12.5 GM/50 ML VIAL IV (14:53)
--- NOTE | 2021-10-03 16:08 | PC.OT ---
OT EVALUATION HELD DUE TO CURRENTLY INTUBATED AND SEDATED. WILL ATTEMPT AGAIN TOMORROW.
[2021-10-03] MEDS: acetaminophen 500 mg Tablet PO (17:20)
[2021-10-03 20:00] LABS: Vancomycin Trough 11.1 ug/mL (10-15)
[2021-10-03] MEDS: FUROsemide 10 mg/mL SDV 2mL 20 MG IVP (20:38)
[2021-10-04] VITALS (79 sets, daily range): BP systolic 79–122; BP diastolic 37–66; PULSE 56–91; RESP 14–19; TEMP 36.3–37.1; O2SAT 91–97
[2021-10-04] MEDS: piperacillin-tazobactam 3.375 GM in sodium chloride 0.9% (plus) 50 ML IV ×3 (02:46→18:49)
[2021-10-04 04:17] LABS: Basophils # 0.1 10^3/uL (0.0-0.1); Basophils % 0.6 %; Eosinophils # 0.7 10^3/uL (0.0-0.8); Eosinophils % 3.3 %; Hematocrit 31.8 % (37.0-47.0); Hemoglobin 9.7 g/dL (11.5-15.3); Lymphocytes # 5.6 10^3/uL (0.8-4.8); Lymphocytes % 28.1 %; Mean Corpuscular HGB Conc 30.5 g/dL (30.0-36.0); Mean Corpuscular Hemoglobin 28.4 pg (28.0-34.0); Mean Corpuscular Volume 93.3 fl (81-99); Mean Platelet Volume 9.8 fL (7.4-10.4); Monocytes # 1.4 10^3/uL (0.2-0.9); Monocytes % 7.1 %; Neutrophils # 11.95 10^3/uL (1.8-7.7); Neutrophils % 60.4 %; Nucleated Red Blood Cells % 0 %; Platelet Count 338 10^3/cmm (130-400); Red Blood Count 3.41 10^6/uL (4.1-5.3); Red Cell Distribution Width 14.2 % (12.1-15.1); White Blood Count 19.8 10^3/uL (4.0-10.0)
[2021-10-04 04:44] LABS: Blood Urea Nitrogen 12 mg/dL (8-23); Calcium 8.6 mg/dL (8.5-10.5); Carbon Dioxide 27 mmol/L (22-29); Chloride 99 mmol/L (98-107); Glucose 154 mg/dL (65-115); Osmolality Calculated 285 mOsm/kg (285-295); Sodium 136 mmol/L (136-145)
[2021-10-04 05:16] LABS: ABG PCO2 45.6 mmHg (35-45); ABG PH Result 7.45 (7.35-7.45); Arterial Blood Gas Hematocrit 32.9 % (37-47); Base Excess ABG 6.5 mmol/L (-2.0-2.0); Blood Gas Allen Test Pos; Blood Gas Sample Site Radial, right; Blood Gas Sample Type Arterial; Blood Gas Tidal Volume 0.32; HCO3 ABG 31.4 mmol/L (22-26); Oxygen Device VENT; PO2 ABG 86.5 mmHg (80.0-100.0)
[2021-10-04] MEDS: norepinephrine 8 MG in dextrose 5 % 500 ML 30.48 MG IV (06:29)
[2021-10-04] MEDS: guaiFENesin 600 mg Tablet 1200 MG PO ×2 (08:22→17:29)
[2021-10-04] MEDS: sennosides-docusate Tablet 1 TAB PO (08:23)
[2021-10-04] MEDS: midodrine 5 mg TABLET PO ×3 (08:23→21:40)
[2021-10-04] MEDS: albumin 12.5 GM/250 ML VIAL IV (08:23)
--- NOTE | 2021-10-04 08:32 | PC.NUTR ---
TF consult received. Recommend consideration of Jevity 1.2 beginning at 15 ml/hr, increasing 10 ml/hr Q8H as tolerated to a goal rate of 35 ml/hr with flushes of 100 mls Q4H. Details in RD assessment.
--- NOTE | 2021-10-04 08:50 | PC.SOCIAL ---
IMM update IMM not updated as patient isn't expected to dc in the next 24-48 hours.
--- NOTE | 2021-10-04 09:24 | PM.PN ---
Subjective Subjective: Patient is still on the ventilator. Oxygenation is improving. She is in the process of being weaned off the ventilator. Her blood pressure seems to be slowly improving. Medications: Medication Review Details: Current Medications Acetaminophen (Acetaminophen 500 Mg Tablet) 500 mg PO Q4H PRN PRN Reason: fever Last Admin: 10/03/21 17:20 Dose: 500 mg Documented by: Albuterol/Ipratropium (Ipratropium-Albuterol 3 Ml Neb) 3 ml INHALATION Q6H PRN PRN Reason: SHORTNESS OF BREATH Last Admin: 10/02/21 19:56 Dose: 3 ml Documented by: Enoxaparin Sodium (Enoxaparin 40 Mg/0.4 Ml Syringe) 40 mg SUBCUT Q24H [facility] Last Admin: 10/03/21 11:07 Dose: 40 mg Documented by: Folic Acid/Iron/Vitamin B12 (Iron Complex Forte Capsule) 1 each PO EVERY OTHER DAY [facility] Last Admin: 10/02/21 08:03 Dose: 1 each Documented by: Furosemide (Furosemide 40 Mg Tablet) 40 mg PO DAILY@0800 [facility] Furosemide (Furosemide 10 Mg/Ml Sdv 4ml) 40 mg IVP Q24H [facility] Last Admin: 10/02/21 11:42 Dose: 40 mg Documented by: Guaifenesin (Guaifenesin 600 Mg Tablet) 1,200 mg PO BID [facility] Last Admin: 10/04/21 08:22 Dose: 1,200 mg Documented by: Fentanyl 2,500 mcg/ Sodium (Chloride) 250 mls @ 0 mls/hr IV .Q0M [facility]; Protocol Last Titration: 10/03/21 17:15 Dose: 40 mcg/hr, 4 mls/hr Documented by: Midazolam HCl 100 mg/ Sodium (Chloride) 100 mls @ 0 mls/hr IV .Q0M [facility]; Protocol Last Titration: 10/03/21 17:00 Dose: 2 mg/hr, 2 mls/hr Documented by: Norepinephrine Bitartrate 8 mg (/ Dextrose) 508 mls @ 0 mls/hr IV .Q0M [facility]; Protocol Last Admin: 10/04/21 06:29 Dose: 8 mcg/min, 30.48 mls/hr Documented by: Piperacillin Sod/Tazobactam (Sod 3.375 gm/ Sodium Chloride) 50 mls @ 12.5 mls/hr IV Q8H [facility]; Protocol Last Admin: 10/04/21 02:46 Dose: 12.5 mls/hr Documented by: Vancomycin HCl 1,000 mg/ (Sodium Chloride) 250 mls @ 250 mls/hr IV Q18H [facility]; Protocol Last Infusion: 10/03/21 21:39 Dose: Infused Documented by: Losartan Potassium (Losartan 50 Mg Tablet) 25 mg PO DAILY [facility] Last Admin: 09/27/21 08:41 Dose: 25 mg Documented by: Metoprolol Tartrate (Metoprolol Tartrate 25 Mg Tablet) 12.5 mg PO BID [facility] Last Admin: 09/28/21 17:48 Dose: 12.5 mg Documented by: Midodrine (Midodrine 5 Mg Tablet) 5 mg PO TID [facility] Last Admin: 10/04/21 08:23 Dose: 5 mg Documented by: Senna/Docusate Sodium (Sennosides-Docusate Tablet) 1 tab PO DAILY [facility] Last Admin: 10/04/21 08:23 Dose: 1 tab Documented by: Spironolactone (Spironolactone 25 Mg Tablet) 25 mg PO DAILY [facility] Last Admin: 09/27/21 08:41 Dose: 25 mg Documented by: Vitals/I&O/Wt Last Vital Signs Temp 98.8 F 10/04/21 04:00 Pulse 91 10/04/21 07:30 Resp 16 10/04/21 07:59 BP 86/50 10/04/21 07:30 Pulse Ox 93 10/04/21 07:59 10/03/21 10/04/21 10/04/21 22:59 06:59 14:59 Intake Total 656.859 / 1968.816 442.068 / 2410.884 Output Total 800 / 890 1480 / 2370 Balance -143.141 / 1078.816 -1037.932 / 40.884 Physical Exam Narrative: GENERAL: The patient is intubated and sedated. HEENT: Minimal pallor.? No icterus or lymphadenopathy.Oral cavity: No active bleeding from the oral cavity or from the nostrils.? 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 No masses noted. RESPIRATORY: Chest is symmetrical. No intercostals muscle retraction or any accessory muscle activation. There is no chest wall tenderness. Breath sounds are heard bilaterally.? Occasional? coarse crackles at the bases BREASTS: Deferred. HEART: The heart sounds are normal.? No S3 or S4.? Ejection systolic murmur grade 4/6 in the aortic area.? No diastolic murmurs. ABDOMEN: No vessel pulsations or distention. No tenderness. No organomegaly appreciated.? Bowel sounds are normally heard. : Deferred. RECTAL: Deferred. LYMPHATIC: No lymphadenopathy noted in the neck . EXTREMITIES: No edema or cyanosis. No clubbing.? Peripheral pulses are weak bilaterally MUSCULOSKELETAL: No acute joint deformities or swelling SKIN: There are no significant rashes or ecchymosis NEUROPSYCHIATRIC: Patient is intubated and sedated Urinary Catheter Management: Mo: Cath Placed During This Visit: yes Reason for Continuing Indwelling Catheter: Accurate Measurement of Urinary Output in Critically Ill Patients Urinary Catheter Date of Insertion: 09/25/21 Urinary Catheter Time of Insertion: 20:29 Data : 10/04/21 04:08 10/04/21 04:08 Other Labs: Laboratory Last Values WBC 19.8 10^3/uL (4.0-10.0) H 10/04/21 04:08 RBC 3.41 10^6/uL (4.1-5.3) L 10/04/21 04:08 Hgb 9.7 g/dL (11.5-15.3) L 10/04/21 04:08 Hct 31.8 % (37.0-47.0) L 10/04/21 04:08 MCV 93.3 fl (81-99) 10/04/21 04:08 MCH 28.4 pg (28.0-34.0) 10/04/21 04:08 MCHC 30.5 g/dL (30.0-36.0) 10/04/21 04:08 RDW 14.2 % (12.1-15.1) 10/04/21 04:08 Plt Count 338 10^3/cmm (130-400) 10/04/21 04:08 MPV 9.8 fL (7.4-10.4) 10/04/21 04:08 Neut % (Auto) 60.4 % 10/04/21 04:08 Lymph % (Auto) 28.1 % 10/04/21 04:08 [place] % (Auto) 7.1 % 10/04/21 04:08 Eos % (Auto) 3.3 % 10/04/21 04:08 Baso % (Auto) 0.6 % 10/04/21 04:08 Neut # (Auto) 11.95 10^3/uL (1.8-7.7) H 10/04/21 04:08 Lymph # (Auto) 5.6 10^3/uL (0.8-4.8) H 10/04/21 04:08 [place] # (Auto) 1.4 10^3/uL (0.2-0.9) H 10/04/21 04:08 Eos # (Auto) 0.7 10^3/uL (0.0-0.8) 10/04/21 04:08 Baso # (Auto) 0.1 10^3/uL (0.0-0.1) 10/04/21 04:08 Nucleated RBC % (auto) 0 % 10/04/21 04:08 Nucleated RBCs # 0.0 /100WBC 10/04/21 04:08 Specimen Type Arterial 10/04/21 05:15 Sample Site Radial, right 10/04/21 05:15 ABG pH 7.45 (7.35-7.45) 10/04/21 05:15 ABG pCO2 45.6 mmHg (35-45) H 10/04/21 05:15 ABG pO2 86.5 mmHg (80.0-100.0) 10/04/21 05:15 ABG HCO3 31.4 mmol/L (22-26) H 10/04/21 05:15 ABG O2 Saturation > 100.0 09/30/21 13:41 ABG Base Excess 6.5 mmol/L (-2.0-2.0) H 10/04/21 05:15 Solitario Test Pos 10/04/21 05:15 A-a O2 Gradient 45.3 mmHg (5-10) H 09/30/21 13:41 Hematocrit 32.9 % (37-47) L 10/04/21 05:15 Hgb O2 Saturation 98.5 % (95-100) 09/30/21 13:41 Carboxyhemoglobin 0.9 %THgb (0.4-20.1) 09/30/21 13:41 Methemoglobin 0.8 % (0.4-1.5) 09/30/21 13:41 Total Hemoglobin 10.9 g/dL (12-16) L 09/30/21 13:41 Sodium 135.0 mmol/L (131-143) 09/30/21 13:41 Potassium 5.2 mmol/L (3.5-5.0) H 09/30/21 13:41 Glucose 208.0 mg/dL (70-115) H 09/30/21 13:41 Ionized Calcium 1.2 mmol/L (1.1-1.4) 09/30/21 13:41 O2 Delivery Device Vent 10/04/21 05:15 FiO2 28.0 % 10/04/21 05:15 Tidal Volume 0.32 10/04/21 05:15 PEEP 8.0 cmH20 10/04/21 05:15 Top Collar Maker ID Hinja 10/04/21 05:15 Sodium 136 mmol/L (136-145) 10/04/21 04:08 Potassium 4.0 mmol/L (3.5-5.1) 10/04/21 04:08 Chloride 99 mmol/L (98-107) 10/04/21 04:08 Carbon Dioxide 27 mmol/L (22-29) 10/04/21 04:08 Anion Gap 14.0 (5-19) 10/04/21 04:08 BUN 12 mg/dL (8-23) 10/04/21 04:08 Creatinine 0.6 mg/dL (0.5-0.9) 10/04/21 04:08 GFR Calculation Not Reportable 10/04/21 04:08 Glucose 154 mg/dL (65-115) H 10/04/21 04:08 POC Glucose 266 mg/dL (70-110) H 09/28/21 20:21 Calculated Osmolality 285 mOsm/kg (285-295) 10/04/21 04:08 Calcium 8.6 mg/dL (8.5-10.5) 10/04/21 04:08 Magnesium 2.4 mg/dL (1.7-2.3) H 10/01/21 04:02 Iron 26 ug/dL (37-145) L 09/28/21 05:16 TIBC 230 mcg/dl 09/28/21 05:16 % Saturation 11.3 % (20-50) L 09/28/21 05:16 Unsat Iron Binding 204 ug/dL (112-347) 09/28/21 05:16 Ferritin 768 ng/mL (15-150) H 09/28/21 05:16 Total Bilirubin 0.3 mg/dL (0.15-1.2) 10/01/21 04:02 AST 56 U/L (0-32) H 10/01/21 04:02 ALT 81 U/L (0-33) H 10/01/21 04:02 Alkaline Phosphatase 93 IU/L (35-105) 10/01/21 04:02 Troponin T Gen 5 ng/L 36 ng/L (0-10) H 09/30/21 10:50 Troponin T Baseline Cancelled 09/25/21 20:55 Troponin T 120 Minute 70.47 ng/L (0-10) H 09/25/21 18:34 Delta Troponin T -12.53 ABS# (0-10) L 09/25/21 18:34 Troponin T Hi Sens 6Hr 69.07 ng/L (0-10) H 09/25/21 22:30 Troponin T Hi Sens 6Hr Delta -13.93 ng/L (0-12) L 09/25/21 22:30 C-Reactive Protein 33.9 mg/L (0.0-4.9) H 09/25/21 16:22 NT-Pro-B Natriuret Pep 63513 pg/mL (0-450) H 09/25/21 16:22 Total Protein 6.7 g/dL (6.6-8.7) 10/01/21 04:02 Albumin 2.6 g/dL (3.5-5.2) L 10/01/21 04:02 Globulin 4.1 g/dL (1.3-4.6) 10/01/21 04:02 Vitamin B12 607 pg/mL (232-1245) 09/28/21 05:16 Folate 17.5 ng/mL (4.8-37.3) 09/28/21 05:16 Procalcitonin 0.12 ng/mL (0-0.5) 09/25/21 18:34 TSH 1.49 uIU/mL (0.27-4.20) 09/25/21 20:55 Random Cortisol 14.82 ug/dL (2.47-19.5) 10/03/21 04:40 Urine Color Yellow (Yellow) 09/25/21 20:30 Urine Appearance Clear (CLEAR) 09/25/21 20:30 Urine pH 5 (5-7) 09/25/21 20:30 Ur Specific Avery 1.020 (1.005-1.030) 09/25/21 20:30 Urine Protein 1+ (Negative) H 09/25/21 20:30 Urine Glucose (UA) Norm (Normal) 09/25/21 20:30 Urine Ketones Negative (Negative) 09/25/21 20:30 Urine Blood Neg (Negative) 09/25/21 20:30 Urine Nitrate Negative (Negative) 09/25/21 20:30 Urine Bilirubin Neg (Negative) 09/25/21 20:30 Urine Urobilinogen Norm mg/dL (Negative) 09/25/21 20:30 Ur Leukocyte Esterase Negative (Negative) 09/25/21 20:30 Urine RBC 0-4 /hpf (0-2) H 09/25/21 20:30 Urine WBC 0-4 /hpf (0-5) H 09/25/21 20:30 Ur Squamous Epith Cells 10-15 /hpf (0-5) H 09/25/21 20:30 Amorphous Sediment 1+ /hpf 09/25/21 20:30 Urine Bacteria 1+ /hpf (NONE) H 09/25/21 20:30 Hyaline Casts 5-10 /lpf H 09/25/21 20:30 Nasal Influ A H1 2009 PCR Not detected (NOT DETECT) 09/25/21 17:25 Vancomycin Trough 11.1 ug/mL (10-15) 10/03/21 19:02 Coronavirus 229E (PCR) Not detected (NOT DETECT) 09/25/21 17:25 Influenza A (H1) PCR Not detected (NOT DETECT) 09/25/21 17:25 Influenza A (H3) PCR Not detected (NOT DETECT) 09/25/21 17:25 Influenza Type A Ag Cancelled 09/25/21 17:25 Influenza Type A (PCR) Not detected (NOT DETECT) 09/25/21 17:25 Influenza Type B Ag Cancelled 09/25/21 17:25 Influenza Type B (PCR) Not detected (NOT DETECT) 09/25/21 17:25 SARS-CoV-2 (PCR) Not detected (NOT DETECT) 09/25/21 17:25 Micro: Microbiology 10/04/21 08:21 Blood Culture - Preliminary Blood SPECIMEN COLLECTED 10/04/21 08:17 Blood Culture - Preliminary Blood SPECIMEN COLLECTED 10/02/21 10:21 Blood Culture - Preliminary Blood NEGATIVE TO DATE 10/02/21 10:18 Blood Culture - Preliminary Blood NEGATIVE TO DATE A&P Assessment and plan (1) Hypotension: This could be multifactorial. Sepsis could be a major contributing factor. Aortic valve stenosis, LV dysfunction etc. also are playing a role. The blood pressure is improving. She is currently on a 5 mics of Levophed. She was given IV fluid and albumin yesterday. Status: Acute (2) Aortic valve stenosis: Patient has severe aortic valve stenosis by echocardiogram. Her valve area of 0.5 cm2. Status: Acute (3) CHF exacerbation: The repeat echocardiogram reveals LV ejection fraction of 40 to 45%. Whether she has any underlying coronary artery disease or not is not clear at this time. Patient requires a cardiac catheterization to further evaluate the coronary status. Status: Acute (4) Acute respiratory failure with hypoxia: This could be multifactorial. Heart failure coupled with pneumonia could be a major contributing factor. May continue on care for IV diuresis and antibiotic treatment. The oxygenation seems to be improving Status: Acute (5) Anemia: Anemia seems to be fairly stable. Status: Acute Plan Patient requires aortic valve replacement. We will try to make it as stable as possible before subjecting her through further cardiac work-up. Repeat CBC in the morning. Based on the clinical progress, further recommendations will be made Attestations Medical Necessity Statement*: Patient requires continued hospital stay for close monitoring and further management Coding Level of Care Code Acute Payment Poster for [facility] Fwd Diagnoses Hypotension I95.9 Aortic valve stenosis I35.0 CHF exacerbation I50.9 Acute respiratory failure with hypoxia J96.01 Anemia D64.9
--- NOTE | 2021-10-04 09:30 | PC.OT ---
OT EVALUATION ATTEMPTED AGAIN TODAY; PATIENT CONTINUES TO BE ON VENT AND SEDATED; PER DAUGHTER THEY ARE WEANING DOWN SEDATION. WILL ATTEMPT AGAIN TOMORROW.
[2021-10-04] MEDS: enoxaparin 40 mg/0.4 mL Syringe SUBCUT (11:51)
--- NOTE | 2021-10-04 11:53 | PM.PN ---
Subjective Subjective: Negative fluid balance Cultures negative to date Febrile event noted Currently on broad-spectrum antibiotics Skin sloughing around sacral area noted this morning Requested blood culture and UC FiO2 30% PEEP decreased to 5 from 8 Tube feeds at minimal rate Appreciate dietary recommendations We will touch base with pulmonary medicine to see if we can do bronchoalveolar lavage We will present her case to tertiary center for her TAVR Severe aortic valve stenosis, Patient is still requiring vasopressors We will give her second dose of albumin today, added midodrine on 10/03 Currently levo running at 7 mics Vitals/I&O/Wt Last Vital Signs Temp 98.8 F 10/04/21 04:00 Pulse 81 10/04/21 10:30 Resp 14 10/04/21 10:03 BP 98/58 10/04/21 10:30 Pulse Ox 95 10/04/21 10:03 10/03/21 10/04/21 10/04/21 22:59 06:59 14:59 Intake Total 656.859 / 1968.816 492.068 / 2460.884 Output Total 800 / 890 1480 / 2370 Balance -143.141 / 1078.816 -987.932 / 90.884 Physical Exam Narrative: Patient intubated and sedated Effort map is low Tube feeds running at 10 mm/h Skin sloughing noticed with stage I ulcer of sacral area No active signs of infection Urine yellow color S1, S2 loud systolic murmur Neuro exam limited Bilateral assisted breath sounds Patient looks euvolemic to dry Urinary Catheter Management: Mo: Cath Placed During This Visit: yes Reason for Continuing Indwelling Catheter: Accurate Measurement of Urinary Output in Critically Ill Patients Urinary Catheter Date of Insertion: 09/25/21 Urinary Catheter Time of Insertion: 20:29 Data : 10/04/21 04:08 10/04/21 04:08 Micro: Microbiology 10/04/21 08:21 Blood Culture - Preliminary Blood SPECIMEN COLLECTED 10/04/21 08:17 Blood Culture - Preliminary Blood SPECIMEN COLLECTED 10/02/21 10:21 Blood Culture - Preliminary Blood NEGATIVE TO DATE 10/02/21 10:18 Blood Culture - Preliminary Blood NEGATIVE TO DATE A&P Assessment and plan (1) Ulcer of sacral region, stage 1: Status: Acute (2) Hypotension: Status: Acute (3) Acute hyperkalemia: Status: Acute (4) Anemia: Status: Acute (5) HTN (hypertension): Status: Acute (6) Aortic valve stenosis: Status: Acute (7) Acute respiratory failure with hypoxia: Status: Acute (8) Mucus plugging of bronchi: Status: Acute (9) Respiratory failure: Status: Acute (10) CHF exacerbation: Status: Acute (11) Pneumonia: Status: Acute Plan Acute hypoxic respiratory failure Patient was intubated secondary to tachypnea, increased work of breathing, she was intubated on 09/30 Intubation was done without any complications Currently patient is on minimal vent settings FiO2 30% PEEP 5, I have decreased her PEEP because of low MAP Mucous plug not evident on repeat CT scan of the chest Patient is spiking fever, currently on broad-spectrum antibiotics Repeat blood culture, urine culture, sputum culture negative so far Hypotension Sepsis criteria met on 10/03 Septic shock Criteria met with fever, leukocytosis, No signs of PE Clinically euvolemic Low albumin, severe aortic valve stenosis EF 40% We will give her second dose of albumin today No signs of vegetation on transthoracic echo CT chest abdomen pelvis unremarkable Nonobstructive kidney stone, requested repeat UA urine culture Might benefit from bronchiolar lavage? Systolic congestive heart failure currently patient is euvolemic We will keep her on low dose diuretic regimen Void frequent albumin dosages to avoid hypernatremia induced fluid overloaded state Severe leukocytosis Leukocytosis is trending down At baseline her white count trends between 11-15,000 Chronic anemia at baseline hemoglobin stays around 9-10 FOBT negative Iron deficiency anemia Full code Family updated We will try to transfer patient to tertiary center, awaiting callback from [facility] Case discussed with Dr. Han Espinal Medical Necessity Statement*: Continue ICU management Time Spent in Patient Care: 25mins Coding Level of Care Code Acute Manager Educational for [employer] Fwd Diagnoses Ulcer of sacral region, stage 1 L98.429 Hypotension I95.9 Acute hyperkalemia E87.5 Anemia D64.9 HTN (hypertension) I10 Aortic valve stenosis I35.0 Acute respiratory failure with hypoxia J96.01 Mucus plugging of bronchi T17.500A Respiratory failure J96.90 CHF exacerbation I50.9 Pneumonia J18.9
--- NOTE | 2021-10-04 11:57 | PC.CHAP ---
Pastoral Care Encounter/Spiritual Assessment Type of Contact [] Declined osha inspector visit [] Patient/Family/Request visit [] Outpatient visit [] Follow-up visit [] Physician referral [] Code/Alert [x] Routine visit [] Staff referral [] Actively dying [] Patient sleeping [x] Family support [] [] Out of room [] Palliative care [] [] Receiving care in room [] Pre-surgical visit [] Trauma [] Long length of stay [x] ICU visit [x] Other: patient on vent... spent time with daughter Relational/Emotional Strength [] Patient feels connected with others/family/visitors/staff [] Distress [] Loneliness/isolation [] Abandonment Spirituality of Patient [] Person of Irish [] Attends Rastafarian of their Irish [] Believes in Prayer [] Reads Bible or Restoration materials [] There are Spiritual issues to be addressed Die Developer Interventions [x] Prayer [] Active listening [] Non-anxious presence [] Spiritual/emotional support [] Crisis/trauma care [] Spiritual counseling [] Bereavement support [] Provided bereavement packet [] Provided Bible/devotional materials [] Provided toy/stuffed animal, coloring book to patient or family member [] Provided Communion [] Anointing/[place] [] Salvation [x] Completed spiritual assessment [] Other: Impact on Illness or Injury [] Angry [] Fearful [] Anxious [] Often cries [] Exhaustion [] Unable to work [] Unable to attend lutheran [] Unable to walk/stand [] Unable to read [] Unable to drive [] Unable to eat/drink [] Unable to sleep [] Unable to be with family [] Patient intubated [] Other: Summary Time spent with patient
[2021-10-04] MEDS: vancomycin 1,000 MG in sodium chloride 0.9% 250 ML 250 MG IV (14:35)
[2021-10-05] VITALS (62 sets, daily range): BP systolic 82–134; BP diastolic 41–71; PULSE 55–72; RESP 14–22; TEMP 36.6; O2SAT 91–100
[2021-10-05] MEDS: piperacillin-tazobactam 3.375 GM in sodium chloride 0.9% (plus) 50 ML IV ×2 (02:32→10:42)
[2021-10-05 04:13] LABS: Basophils # 0.1 10^3/uL (0.0-0.1); Basophils % 0.6 %; Eosinophils # 0.4 10^3/uL (0.0-0.8); Eosinophils % 2.3 %; Hematocrit 30.2 % (37.0-47.0); Lymphocytes # 3.5 10^3/uL (0.8-4.8); Lymphocytes % 21.6 %; Mean Corpuscular HGB Conc 29.8 g/dL (30.0-36.0); Mean Corpuscular Hemoglobin 28.1 pg (28.0-34.0); Mean Corpuscular Volume 94.4 fl (81-99); Monocytes # 1.3 10^3/uL (0.2-0.9); Monocytes % 7.8 %; Neutrophils # 10.81 10^3/uL (1.8-7.7); Nucleated Red Blood Cells % 0 %; Platelet Count 256 10^3/cmm (130-400); Red Cell Distribution Width 14.3 % (12.1-15.1); White Blood Count 16.1 10^3/uL (4.0-10.0)
[2021-10-05 04:35] LABS: Blood Urea Nitrogen 16 mg/dL (8-23); Calcium 8.5 mg/dL (8.5-10.5); Carbon Dioxide 24 mmol/L (22-29); Chloride 96 mmol/L (98-107); Glucose 129 mg/dL (65-115); Osmolality Calculated 277 mOsm/kg (285-295); Sodium 132 mmol/L (136-145)
[2021-10-05] MEDS: vancomycin 1,000 MG in sodium chloride 0.9% 250 ML 250 MG IV (07:23)
[2021-10-05] MEDS: norepinephrine 8 MG in dextrose 5 % 500 ML 15.24 MG IV (07:53)
--- NOTE | 2021-10-05 08:15 | PC.OT ---
ATTEMPTED OT EVALUATION AGAIN THIS AM. PATIENT STILL INTUBATED AND UNABLE TO PARTICIPATE.
[2021-10-05] MEDS: guaiFENesin 600 mg Tablet 1200 MG PO (08:21)
[2021-10-05] MEDS: midodrine 5 mg TABLET PO ×2 (08:21→15:15)
[2021-10-05] MEDS: sennosides-docusate Tablet 1 TAB PO (08:21)
[2021-10-05] MEDS: iron complex forte Capsule 1 EACH PO (08:22)
[2021-10-05] MEDS: nystatin powder 15 gm Btl 1 APPLIC TOPICAL (09:03)
--- NOTE | 2021-10-05 09:52 | PM.PN ---
Subjective Subjective: Patient continues to be on the ventilator. The nurses had difficulty in waking her up. She is off most of the sedation. She is currently on a Levophed of 2 mics. Remains afebrile. White cell count is down to 16,000. Medications: Medication Review Details: Current Medications Acetaminophen (Acetaminophen 500 Mg Tablet) 500 mg PO Q4H PRN PRN Reason: fever Last Admin: 10/03/21 17:20 Dose: 500 mg Documented by: Albuterol/Ipratropium (Ipratropium-Albuterol 3 Ml Neb) 3 ml INHALATION Q6H PRN PRN Reason: SHORTNESS OF BREATH Last Admin: 10/02/21 19:56 Dose: 3 ml Documented by: Enoxaparin Sodium (Enoxaparin 40 Mg/0.4 Ml Syringe) 40 mg SUBCUT Q24H BRENNEN Last Admin: 10/04/21 11:51 Dose: 40 mg Documented by: Furosemide (Furosemide 40 Mg Tablet) 40 mg PO DAILY@0800 BRENNEN Furosemide (Furosemide 10 Mg/Ml Sdv 4ml) 40 mg IVP Q24H BRENNEN Last Admin: 10/02/21 11:42 Dose: 40 mg Documented by: Fentanyl 2,500 mcg/ Sodium (Chloride) 250 mls @ 0 mls/hr IV .Q0M BRENNEN; Protocol Last Titration: 10/04/21 17:37 Dose: 0 mcg/hr, 0 mls/hr Documented by: Midazolam HCl 100 mg/ Sodium (Chloride) 100 mls @ 0 mls/hr IV .Q0M BRENNEN; Protocol Last Titration: 10/04/21 17:37 Dose: 0 mg/hr, 0 mls/hr Documented by: Norepinephrine Bitartrate 8 mg (/ Dextrose) 508 mls @ 0 mls/hr IV .Q0M BRENNEN; Protocol Last Titration: 10/05/21 08:45 Dose: 4 mcg/min, 15.24 mls/hr Documented by: Piperacillin Sod/Tazobactam (Sod 3.375 gm/ Sodium Chloride) 50 mls @ 12.5 mls/hr IV Q8H BRENNEN; Protocol Last Infusion: 10/05/21 07:29 Dose: Infused Documented by: Vancomycin HCl 1,000 mg/ (Sodium Chloride) 250 mls @ 250 mls/hr IV Q18H BRENNEN; Protocol Last Infusion: 10/05/21 08:44 Dose: Infused Documented by: dexmedeTOMIDine 0.9 % NaCL (Precedex) 400 mcg in 100 mls @ 0 mls/hr IV .Q0M [facility]; Protocol Losartan Potassium (Losartan 50 Mg Tablet) 25 mg PO DAILY [facility] Last Admin: 09/27/21 08:41 Dose: 25 mg Documented by: Metoprolol Tartrate (Metoprolol Tartrate 25 Mg Tablet) 12.5 mg PO BID [facility] Last Admin: 09/28/21 17:48 Dose: 12.5 mg Documented by: Midodrine (Midodrine 5 Mg Tablet) 5 mg PO TID [facility] Last Admin: 10/05/21 08:21 Dose: 5 mg Documented by: Nystatin (Nystatin Powder 15 Gm Btl) 1 applic TOPICAL BID [facility] Last Admin: 10/05/21 09:03 Dose: 1 applic Documented by: Senna/Docusate Sodium (Sennosides-Docusate Tablet) 1 tab PO DAILY [facility] Last Admin: 10/05/21 08:21 Dose: 1 tab Documented by: Spironolactone (Spironolactone 25 Mg Tablet) 25 mg PO DAILY [facility] Last Admin: 09/27/21 08:41 Dose: 25 mg Documented by: Vitals/I&O/Wt Last Vital Signs Temp 97.4 F L 10/04/21 23:00 Pulse 63 10/05/21 07:15 Resp 16 10/05/21 07:42 BP 113/52 10/05/21 07:15 Pulse Ox 98 10/05/21 07:42 10/04/21 10/05/21 10/05/21 22:59 06:59 14:59 Intake Total 320.533 / 981.794 309.372 / 1291.166 313.208 / 313.208 Output Total 200 / 200 300 / 500 Balance 120.533 / 781.794 9.372 / 791.166 313.208 / 313.208 Physical Exam Narrative: GENERAL: The patient is intubated and sedated. HEENT: Minimal pallor.? No icterus or lymphadenopathy.Oral cavity: No active bleeding from the oral cavity or from the nostrils.? 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 No masses noted. RESPIRATORY: Chest is symmetrical. No intercostals muscle retraction or any accessory muscle activation. There is no chest wall tenderness. Breath sounds are heard bilaterally.? Occasional? coarse crackles at the bases BREASTS: Deferred. HEART: The second heart sound is muffled. No S3 or S4.? Ejection systolic murmur grade 4/6 in the aortic area.? No diastolic murmurs. ABDOMEN: No vessel pulsations or distention. No tenderness. No organomegaly appreciated.? Bowel sounds are normally heard. : Deferred. RECTAL: Deferred. LYMPHATIC: No lymphadenopathy noted in the neck . EXTREMITIES: No edema or cyanosis. No clubbing.? Peripheral pulses are weak bilaterally MUSCULOSKELETAL: No acute joint deformities or swelling SKIN: There are no significant rashes or ecchymosis NEUROPSYCHIATRIC: Patient is intubated and sedated Urinary Catheter Management: Mo: Cath Placed During This Visit: yes Reason for Continuing Indwelling Catheter: Accurate Measurement of Urinary Output in Critically Ill Patients Urinary Catheter Date of Insertion: 09/25/21 Urinary Catheter Time of Insertion: 20:29 Data : 10/05/21 03:54 10/05/21 03:54 Other Labs: Laboratory Last Values WBC 16.1 10^3/uL (4.0-10.0) H 10/05/21 03:54 RBC 3.20 10^6/uL (4.1-5.3) L 10/05/21 03:54 Hgb 9.0 g/dL (11.5-15.3) L 10/05/21 03:54 Hct 30.2 % (37.0-47.0) L 10/05/21 03:54 MCV 94.4 fl (81-99) 10/05/21 03:54 MCH 28.1 pg (28.0-34.0) 10/05/21 03:54 MCHC 29.8 g/dL (30.0-36.0) L 10/05/21 03:54 RDW 14.3 % (12.1-15.1) 10/05/21 03:54 Plt Count 256 10^3/cmm (130-400) 10/05/21 03:54 MPV 10.0 fL (7.4-10.4) 10/05/21 03:54 Neut % (Auto) 67.0 % 10/05/21 03:54 Lymph % (Auto) 21.6 % 10/05/21 03:54 [place] % (Auto) 7.8 % 10/05/21 03:54 Eos % (Auto) 2.3 % 10/05/21 03:54 Baso % (Auto) 0.6 % 10/05/21 03:54 Neut # (Auto) 10.81 10^3/uL (1.8-7.7) H 10/05/21 03:54 Lymph # (Auto) 3.5 10^3/uL (0.8-4.8) 10/05/21 03:54 [place] # (Auto) 1.3 10^3/uL (0.2-0.9) H 10/05/21 03:54 Eos # (Auto) 0.4 10^3/uL (0.0-0.8) 10/05/21 03:54 Baso # (Auto) 0.1 10^3/uL (0.0-0.1) 10/05/21 03:54 Nucleated RBC % (auto) 0 % 10/05/21 03:54 Nucleated RBCs # 0.0 /100WBC 10/05/21 03:54 Specimen Type Arterial 10/04/21 05:15 Sample Site Radial, right 10/04/21 05:15 ABG pH 7.45 (7.35-7.45) 10/04/21 05:15 ABG pCO2 45.6 mmHg (35-45) H 10/04/21 05:15 ABG pO2 86.5 mmHg (80.0-100.0) 10/04/21 05:15 ABG HCO3 31.4 mmol/L (22-26) H 10/04/21 05:15 ABG O2 Saturation > 100.0 09/30/21 13:41 ABG Base Excess 6.5 mmol/L (-2.0-2.0) H 10/04/21 05:15 Solitario Test Pos 10/04/21 05:15 A-a O2 Gradient 45.3 mmHg (5-10) H 09/30/21 13:41 Hematocrit 32.9 % (37-47) L 10/04/21 05:15 Hgb O2 Saturation 98.5 % (95-100) 09/30/21 13:41 Carboxyhemoglobin 0.9 %THgb (0.4-20.1) 09/30/21 13:41 Methemoglobin 0.8 % (0.4-1.5) 09/30/21 13:41 Total Hemoglobin 10.9 g/dL (12-16) L 09/30/21 13:41 Sodium 135.0 mmol/L (131-143) 09/30/21 13:41 Potassium 5.2 mmol/L (3.5-5.0) H 09/30/21 13:41 Glucose 208.0 mg/dL (70-115) H 09/30/21 13:41 Ionized Calcium 1.2 mmol/L (1.1-1.4) 09/30/21 13:41 O2 Delivery Device Vent 10/04/21 05:15 FiO2 28.0 % 10/04/21 05:15 Tidal Volume 0.32 10/04/21 05:15 PEEP 8.0 cmH20 10/04/21 05:15 Cement Loader ID Hinja 10/04/21 05:15 Sodium 132 mmol/L (136-145) L 10/05/21 03:54 Potassium 4.0 mmol/L (3.5-5.1) 10/05/21 03:54 Chloride 96 mmol/L (98-107) L 10/05/21 03:54 Carbon Dioxide 24 mmol/L (22-29) 10/05/21 03:54 Anion Gap 16.0 (5-19) 10/05/21 03:54 BUN 16 mg/dL (8-23) 10/05/21 03:54 Creatinine 1.0 mg/dL (0.5-0.9) H 10/05/21 03:54 GFR Calculation Not Reportable 10/05/21 03:54 Glucose 129 mg/dL (65-115) H 10/05/21 03:54 POC Glucose 266 mg/dL (70-110) H 09/28/21 20:21 Calculated Osmolality 277 mOsm/kg (285-295) L 10/05/21 03:54 Calcium 8.5 mg/dL (8.5-10.5) 10/05/21 03:54 Magnesium 2.4 mg/dL (1.7-2.3) H 10/01/21 04:02 Iron 26 ug/dL (37-145) L 09/28/21 05:16 TIBC 230 mcg/dl 09/28/21 05:16 % Saturation 11.3 % (20-50) L 09/28/21 05:16 Unsat Iron Binding 204 ug/dL (112-347) 09/28/21 05:16 Ferritin 768 ng/mL (15-150) H 09/28/21 05:16 Total Bilirubin 0.3 mg/dL (0.15-1.2) 10/01/21 04:02 AST 56 U/L (0-32) H 10/01/21 04:02 ALT 81 U/L (0-33) H 10/01/21 04:02 Alkaline Phosphatase 93 IU/L (35-105) 10/01/21 04:02 Troponin T Gen 5 ng/L 36 ng/L (0-10) H 09/30/21 10:50 Troponin T Baseline Cancelled 09/25/21 20:55 Troponin T 120 Minute 70.47 ng/L (0-10) H 09/25/21 18:34 Delta Troponin T -12.53 ABS# (0-10) L 09/25/21 18:34 Troponin T Hi Sens 6Hr 69.07 ng/L (0-10) H 09/25/21 22:30 Troponin T Hi Sens 6Hr Delta -13.93 ng/L (0-12) L 09/25/21 22:30 C-Reactive Protein 33.9 mg/L (0.0-4.9) H 09/25/21 16:22 NT-Pro-B Natriuret Pep 53975 pg/mL (0-450) H 09/25/21 16:22 Total Protein 6.7 g/dL (6.6-8.7) 10/01/21 04:02 Albumin 2.6 g/dL (3.5-5.2) L 10/01/21 04:02 Globulin 4.1 g/dL (1.3-4.6) 10/01/21 04:02 Vitamin B12 607 pg/mL (232-1245) 09/28/21 05:16 Folate 17.5 ng/mL (4.8-37.3) 09/28/21 05:16 Procalcitonin 0.12 ng/mL (0-0.5) 09/25/21 18:34 TSH 1.49 uIU/mL (0.27-4.20) 09/25/21 20:55 Random Cortisol 14.82 ug/dL (2.47-19.5) 10/03/21 04:40 Urine Color Yellow (Yellow) 09/25/21 20:30 Urine Appearance Clear (CLEAR) 09/25/21 20:30 Urine pH 5 (5-7) 09/25/21 20:30 Ur Specific [place] 1.020 (1.005-1.030) 09/25/21 20:30 Urine Protein 1+ (Negative) H 09/25/21 20:30 Urine Glucose (UA) Norm (Normal) 09/25/21 20:30 Urine Ketones Negative (Negative) 09/25/21 20:30 Urine Blood Neg (Negative) 09/25/21 20:30 Urine Nitrate Negative (Negative) 09/25/21 20:30 Urine Bilirubin Neg (Negative) 09/25/21 20:30 Urine Urobilinogen Norm mg/dL (Negative) 09/25/21 20:30 Ur Leukocyte Esterase Negative (Negative) 09/25/21 20:30 Urine RBC 0-4 /hpf (0-2) H 09/25/21 20:30 Urine WBC 0-4 /hpf (0-5) H 09/25/21 20:30 Ur Squamous Epith Cells 10-15 /hpf (0-5) H 09/25/21 20:30 Amorphous Sediment 1+ /hpf 09/25/21 20:30 Urine Bacteria 1+ /hpf (NONE) H 09/25/21 20:30 Hyaline Casts 5-10 /lpf H 09/25/21 20:30 Nasal Influ A H1 2009 PCR Not detected (NOT DETECT) 09/25/21 17:25 Vancomycin Trough 11.1 ug/mL (10-15) 10/03/21 19:02 Coronavirus 229E (PCR) Not detected (NOT DETECT) 09/25/21 17:25 Influenza A (H1) PCR Not detected (NOT DETECT) 09/25/21 17:25 Influenza A (H3) PCR Not detected (NOT DETECT) 09/25/21 17:25 Influenza Type A Ag Cancelled 09/25/21 17:25 Influenza Type A (PCR) Not detected (NOT DETECT) 09/25/21 17:25 Influenza Type B Ag Cancelled 09/25/21 17:25 Influenza Type B (PCR) Not detected (NOT DETECT) 09/25/21 17:25 SARS-CoV-2 (PCR) Not detected (NOT DETECT) 09/25/21 17:25 Micro: Microbiology 10/04/21 08:21 Blood Culture - Preliminary Blood NEGATIVE TO DATE 10/04/21 08:17 Blood Culture - Preliminary Blood NEGATIVE TO DATE A&P Assessment and plan (1) Hypotension: Patient continues to be somewhat hypotensive. Most likely this is related to the low output state from the severe aortic valve stenosis, since she is remaining afebrile and the white cell count is improving. Status: Acute (2) Aortic valve stenosis: Patient has severe aortic valve stenosis by echocardiogram. Her valve area of 0.5 cm2, with a mean gradient of 59 mmHg Status: Acute (3) CHF exacerbation: The repeat echocardiogram reveals LV ejection fraction of 40 to 45%. Whether she has any underlying coronary artery disease or not is not clear at this time. Patient requires a cardiac catheterization to further evaluate the coronary status. Status: Acute (4) Acute respiratory failure with hypoxia: This could be multifactorial. Heart failure coupled with pneumonia could be a major contributing factor. May continue on care for IV diuresis and antibiotic treatment. The oxygenation seems to be improving Status: Acute (5) Anemia: Anemia seems to be fairly stable. Status: Acute Plan Patient requires aortic valve replacement. I discussed with Dr. Ortiz at the [facility]. The patient might be a candidate for aortic valvuloplasty to buy some time and then do the TAVR. Because of the hypotension requiring Levophed, it would be ideal for her to be extubated at this time. Discussed in detail with the patient's daughter about her condition and the need to transfer her .the family understand this well. Discussed with Dr Goldsmith. Will make arrangements for her to be transferred to the ICU of the [facility]. Attestations Medical Necessity Statement*: Possible transfer to the [facility] in [place] today Coding Level of Care Code Acute Care Partner for Chg Fwd History Detailed Exam Detailed Medical Decision Making High Complexity Diagnoses Hypotension I95.9 Aortic valve stenosis I35.0 CHF exacerbation I50.9 Acute respiratory failure with hypoxia J96.01 Anemia D64.9
[2021-10-05] MEDS: sodium chloride 0.9% 250 ML IV (10:43)
[2021-10-05 11:49] LABS: Bacillus cereus group Not Detected (NOT DETECT); Bacillus subtillis group Not Detected (NOT DETECT); Corynebacterium Not Detected (NOT DETECT); Cutibacterium acnes (P.acnes) Not Detected (NOT DETECT); Enterococcus Not Detected (NOT DETECT); Enterococcus faecalis Not Detected (NOT DETECT); Enterococcus faecium Not Detected (NOT DETECT); Lactobacillus species Not Detected (NOT DETECT); Listeria Not Detected (NOT DETECT); Listeria monocytogenes Not Detected (NOT DETECT); Micrococcus Not Detected (NOT DETECT); Pan Candida Not Detected (NOT DETECT); Pan Gram-Negative Not Detected (NOT DETECT); Staphylococcus epidermidis Not Detected (NOT DETECT); Staphylococcus lugdunensis Not Detected (NOT DETECT); Staphylococcus species Detected (NOT DETECT); Streptococcus agalactiae Not Detected (NOT DETECT); Streptococcus anginosus group Not Detected (NOT DETECT); Streptococcus pneumoniae Not Detected (NOT DETECT); Streptococcus pyogenes Not Detected (NOT DETECT); Streptococcus species Not Detected (NOT DETECT); mecA Detected (NOT DETECT); mecC Not Detected (NOT DETECT)
--- NOTE | 2021-10-05 12:38 | P.PN_ITS ---
Subjective Subjective: No fever since 10/03 Preliminary report of blood culture noted Leukocytosis improved to 16,000 which is around her baseline she has persistent leukocytosis history Hemoglobin is stable No febrile events overnight Gram-positive cocci blood culture taken on 10/04 while on vancomycin and Zosyn Levo has been titrated off to 2 mics today, blood pressure is stable she received 2 bags of albumin, midodrine Lasix is on hold Did not respond much to fluid bolus I did talk with Dr. Short if we can plan for coronary angiogram while she is intubated, after her coronary angiogram we can extubate her and transfer to [facility] for TAVR as they want take her if she is intubated She has been off sedatives since yesterday, fentanyl and Versed discontinued since yesterday Secondary to use of Versed she will take time to wake up, can use Precedex now onwards She has stage I sacral ulcer Start nystatin, wound care, dressing, no active signs of cellulitis Vitals/I&O/Wt Last Vital Signs Temp 97.4 F L 10/04/21 23:00 Pulse 61 10/05/21 12:30 Resp 14 10/05/21 11:22 BP 89/44 10/05/21 12:30 Pulse Ox 100 10/05/21 12:30 10/04/21 10/05/21 10/05/21 22:59 06:59 14:59 Intake Total 320.533 / 981.794 309.372 / 1291.166 313.208 / 313.208 Output Total 200 / 200 300 / 500 Balance 120.533 / 781.794 9.372 / 791.166 313.208 / 313.208 Physical Exam Narrative: Patient is intubated, patient is off sedation however not able to open her eyes Not responding to painful stimuli Levo running at 2 mics Blood pressure stable Afebrile Abdomen is soft Bilateral breath sounds Tube feeds running at lower rate Stage I sacral ulcer Fungal rash No signs of edema, clinically looks euvolemic Urinary Catheter Management: Mo: Cath Placed During This Visit: yes Reason for Continuing Indwelling Catheter: Accurate Measurement of Urinary Output in Critically Ill Patients Urinary Catheter Date of Insertion: 09/25/21 Urinary Catheter Time of Insertion: 20:29 Data : 10/05/21 03:54 10/05/21 03:54 Micro: Microbiology 10/04/21 08:17 Blood Culture - Preliminary Blood Gram positive cocci 10/04/21 08:21 Blood Culture - Preliminary Blood NEGATIVE TO DATE A&P Assessment and plan (1) Ulcer of sacral region, stage 1: Status: Acute (2) Hypotension: Status: Acute (3) Acute hyperkalemia: Status: Acute (4) Anemia: Status: Acute (5) HTN (hypertension): Status: Acute (6) Aortic valve stenosis: Status: Acute (7) Acute respiratory failure with hypoxia: Status: Acute (8) Mucus plugging of bronchi: Status: Acute (9) Respiratory failure: Status: Acute (10) CHF exacerbation: Status: Acute (11) Pneumonia: Status: Acute Plan Acute hypoxic respiratory failure Intubated 09/30 She was intubated secondary to worsening tachypnea and increased work of breathing Off sedation since 10/04 Secondary to Versed she will take time to wake up Repeat CT scan of chest shows improvement in mucous plug Cultures negative to date Hypotension She met sepsis criteria on 10/03 Repeat blood culture showed positive gram-positive cocci I am not sure if it is pathogenic organism versus contamination Might repeat blood culture tomorrow She is afebrile since 10/03 Sacral stage I ulcer, macerated, skin sloughing, added nystatin asked nurse for wound care and dressing Levophed running at 2 mics Patient received 2 bags of albumin, midodrine and bolus of fluid today Minimally responsive to gentle fluid hydration Likely related to underlying severe aortic stenosis Severe aortic stenosis with cardiomyopathy Repeat echo showed EF 40% Severe aortic valve stenosis with use of Levophed causing low MAP, intubation would also decrease preload Gentle fluid bolus today Diuretics on hold Dr. Short planning to talk with his colleague in [place] Persistent leukocytosis Leukocytosis around her baseline It came down from 26,000-16,000 Chronic anemia: Hemoglobin at baseline FOBT negative Iron deficiency: Family is aware Right now plan is to reassess if coronary angiogram can be done while she is intubated and then we can plan for extubation, after extubation she can be transferred to [facility] for TAVR Dr. Short is going to touch base with his colleague today, will follow up with cardiology Patient is currently on lower rate for tube feeds DVT prophylaxis on board Full code Attestations Medical Necessity Statement*: Continue ICU management Time Spent in Patient Care: 25mins Coding Level of Care Code Acute Lead Bi Developer for Chg Fwd Diagnoses Ulcer of sacral region, stage 1 L98.429 Hypotension I95.9 Acute hyperkalemia E87.5 Anemia D64.9 HTN (hypertension) I10 Aortic valve stenosis I35.0 Acute respiratory failure with hypoxia J96.01 Mucus plugging of bronchi T17.500A Respiratory failure J96.90 CHF exacerbation I50.9 Pneumonia J18.9
[2021-10-05] MEDS: enoxaparin 40 mg/0.4 mL Syringe SUBCUT (12:58)
--- NOTE | 2021-10-05 15:02 | PC.NURSE ---
reposition frequent with nystatin powder to groin area and areas of skin sloughing noted area cleansed with silvercell dressing applied had weaned off levophed when Dr Short here for transfer to [facility].. restarted to increase blood pressure for transport.
--- NOTE | 2021-10-05 16:39 | PM.TDS ---
Transfer Summary Providers Date of Admission: 09/25/21 17:49 Date of Discharge/Transfer: 10/05/21 Attending Provider at Admission: Rocio Goldsmith MD Attending Provider at Transfer: Rocio Goldsmith MD Primary Care Provider: Celestine Delong MD Transfer Plans: Anticipated date of transfer: 10/05/21. Diagnoses at Discharge Discharge Diagnosis (1) Ulcer of sacral region, stage 1: Status: Acute (2) Hypotension: Status: Acute (3) Acute hyperkalemia: Status: Acute (4) Anemia: Status: Acute (5) HTN (hypertension): Status: Acute (6) Aortic valve stenosis: Status: Acute (7) Acute respiratory failure with hypoxia: Status: Acute (8) Mucus plugging of bronchi: Status: Acute (9) Respiratory failure: Status: Acute (10) CHF exacerbation: Status: Acute (11) Pneumonia: Status: Acute Reason for Visit Reason for Visit SOB Hospital Course Hospital Course 86-year-old female who was admitted on 09/25 for chief complaint of exertional shortness of breath. She was diagnosed with new onset heart failure, acute hypoxic respiratory failure, CTA rule out PE however showed mucous plugging and she was treated empirically with ceftriaxone and azithromycin along steroids. Echo showed EF 30 to 35% with severe aortic valve stenosis gradient. Clinical signs of fluid overload improved with diuresis however her leukocytosis was worsening, she did not spike any fever, cultures remain negative, her work of breathing starting getting worse and she became tachypneic, did not tolerate BiPAP very well, she was transferred to ICU. She was intubated on 09/30. Etomidate and rocuronium were used. Endotracheal tube size 8 at 24 cm at teeth bite. She was put on Versed and fentanyl. Required vasopressors Levophed since intubation. We are able to try to her Levophed off from 16 mics to 2 mics today however after giving 2 bags of albumin, and addition of midodrine. She was given gentle fluid boluses which did not improve her blood pressure. Her urine output was adequate, she remained in negative balance. Clinical signs of euvolemia. On 10/03 she started spiking fever, CT chest abdomen pelvis was done which did not show acute pathological changes however showed improvement of groundglass opacities of lung: Mucous plug improved, nonobstructive kidney stone, UA unremarkable. She did not spike any fever after single episode of T-max 101 on 10/03. She remained on broad-spectrum antibiotics since intubation. Vancomycin and Zosyn. Blood cultures from 10/04 preliminary report is showing gram-positive cocci in pairs. Final report for culture and sensitivities pending. Nares MRSA negative. Urine antigens negative. She has stage I sacral ulcer with skin sloughing and maceration. Nystatin added. Repeat echo showed EF 40% with severe aortic valve gradient. Of note, she has persistent leukocytosis, her white count range is between 11-15,000. Chronic anemia hemoglobin stays between 9 to 10 g/dL. Her FOBT was negative during this hospitalization. She has mild iron deficiency anemia. Dr. Short spoke to the ornamental metal fabricator apprentice and asked hospitalist to coordinate the transfer. Dr. Maldonado will be consulted on this case, I have spoken and given verbal report to the medical recruitment advertising manager Dr Gaytan She is being transferred to [facility] for coronary angiogram before valvuloplasty versus TAVR On 10/05 She is requiring Levophed at 2 mics FiO2 30%, PEEP 5 Off sedation since 10/04 Adequate urine output Afebrile Vancomycin and Zosyn given for last 5 days Leukocytosis today around 16,000 Sodium 132 Potassium 4 Creatinine 1.0 Physical Exam Narrative: Patient is intubat ed, patient is off sedation however not able to open h er eyes Not respon ding to painful st imuli Levo running at 2 mics Blood p ressure stable Afe brile Abdomen is s oft Bilateral colt th sounds Tube fee ds running at lowe r rate Stage I sac ral ulcer Fungal r brodie No signs of ed myla, clinically lo oks euvolemic ? Urinary Catheter M anagement:?? Mo: Cath Placed During This Visit : yes Reason for C ontinuing Indwelli ng Catheter: Accur ate Measurement of Urinary Output in Critically Ill Christiano kim Urinary Cat heter Date of Inse rtion: 09/25/21 Ur inary Catheter Jj e of Insertion: 20 :29 Urinary Catheter Management: Mo: Cath Placed During This Visit: yes Reason for Continuing Indwelling Catheter: Accurate Measurement of Urinary Output in Critically Ill Patients Urinary Catheter Date of Insertion: 09/25/21 Urinary Catheter Time of Insertion: 20:29 TS Data Studies Completed and Pending Pending at discharge Category Date Time Status Arterial Blood Gas W/O Coox AM LABS Lab 10/06/21 04:00 Ordered Basic Metabolic Panel AM LABS Lab 10/06/21 04:00 Ordered Blood Culture Stat Lab 10/02/21 10:21 Results Blood Culture Stat Lab 10/04/21 08:21 Results Complete Blood Count w/Auto AM LABS Lab 10/06/21 04:00 Ordered Urinalysis Routine Lab 10/04/21 12:10 Ordered Labs from last 24 hours 10/05/21 10/05/21 03:54 03:54 WBC 16.1 H RBC 3.20 L Hgb 9.0 L Hct 30.2 L MCV 94.4 MCH 28.1 MCHC 29.8 L RDW 14.3 Plt Count 256 MPV 10.0 Neut % (Auto) 67.0 Lymph % (Auto) 21.6 Latimer % (Auto) 7.8 Eos % (Auto) 2.3 Baso % (Auto) 0.6 Neut # (Auto) 10.81 H Lymph # (Auto) 3.5 Latimer # (Auto) 1.3 H Eos # (Auto) 0.4 Baso # (Auto) 0.1 Nucleated RBC % (auto) 0 Nucleated RBCs # 0.0 Sodium 132 L Potassium 4.0 Chloride 96 L Carbon Dioxide 24 Anion Gap 16.0 BUN 16 Creatinine 1.0 H GFR Calculation Not Reportable Glucose 129 H Calculated Osmolality 277 L Calcium 8.5 Completed Studies During Hospitalization Category Date Time Status CT angio chest PE protcl [id number] Urgent Cat Scan 09/25/21 19:[address] chest abd pel wo con Routine Cat Scan 10/02/21 08:47 Completed XR chest 1V portable [id number] Routine Exams 09/30/21 12:42 Completed XR chest 1V portable [id number] Routine Exams 10/01/21 09:36 Completed XR chest 1V portable [id number] Stat Exams 09/30/21 10:07 Completed XR chest 1V portable [id number] Urgent Exams 09/25/21 17:10 Completed CV. echo complete* [id number] Routine Ultrasound 09/25/21 21:22 Completed CV. [place] w color [id number]/ Routine Ultrasound 10/03/21 09:16 Completed Laboratory Last Values WBC 16.1 10^3/uL (4.0-10.0) H 10/05/21 03:54 RBC 3.20 10^6/uL (4.1-5.3) L 10/05/21 03:54 Hgb 9.0 g/dL (11.5-15.3) L 10/05/21 03:54 Hct 30.2 % (37.0-47.0) L 10/05/21 03:54 MCV 94.4 fl (81-99) 10/05/21 03:54 MCH 28.1 pg (28.0-34.0) 10/05/21 03:54 MCHC 29.8 g/dL (30.0-36.0) L 10/05/21 03:54 RDW 14.3 % (12.1-15.1) 10/05/21 03:54 Plt Count 256 10^3/cmm (130-400) 10/05/21 03:54 MPV 10.0 fL (7.4-10.4) 10/05/21 03:54 Neut % (Auto) 67.0 % 10/05/21 03:54 Lymph % (Auto) 21.6 % 10/05/21 03:54 Latimer % (Auto) 7.8 % 10/05/21 03:54 Eos % (Auto) 2.3 % 10/05/21 03:54 Baso % (Auto) 0.6 % 10/05/21 03:54 Neut # (Auto) 10.81 10^3/uL (1.8-7.7) H 10/05/21 03:54 Lymph # (Auto) 3.5 10^3/uL (0.8-4.8) 10/05/21 03:54 Latimer # (Auto) 1.3 10^3/uL (0.2-0.9) H 10/05/21 03:54 Eos # (Auto) 0.4 10^3/uL (0.0-0.8) 10/05/21 03:54 Baso # (Auto) 0.1 10^3/uL (0.0-0.1) 10/05/21 03:54 Nucleated RBC % (auto) 0 % 10/05/21 03:54 Nucleated RBCs # 0.0 /100WBC 10/05/21 03:54 Specimen Type Arterial 10/04/21 05:15 Sample Site Radial, right 10/04/21 05:15 ABG pH 7.45 (7.35-7.45) 10/04/21 05:15 ABG pCO2 45.6 mmHg (35-45) H 10/04/21 05:15 ABG pO2 86.5 mmHg (80.0-100.0) 10/04/21 05:15 ABG HCO3 31.4 mmol/L (22-26) H 10/04/21 05:15 ABG O2 Saturation > 100.0 09/30/21 13:41 ABG Base Excess 6.5 mmol/L (-2.0-2.0) H 10/04/21 05:15 Solitario Test Pos 10/04/21 05:15 A-a O2 Gradient 45.3 mmHg (5-10) H 09/30/21 13:41 Hematocrit 32.9 % (37-47) L 10/04/21 05:15 Hgb O2 Saturation 98.5 % (95-100) 09/30/21 13:41 Carboxyhemoglobin 0.9 %THgb (0.4-20.1) 09/30/21 13:41 Methemoglobin 0.8 % (0.4-1.5) 09/30/21 13:41 Total Hemoglobin 10.9 g/dL (12-16) L 09/30/21 13:41 Sodium 135.0 mmol/L (131-143) 09/30/21 13:41 Potassium 5.2 mmol/L (3.5-5.0) H 09/30/21 13:41 Glucose 208.0 mg/dL (70-115) H 09/30/21 13:41 Ionized Calcium 1.2 mmol/L (1.1-1.4) 09/30/21 13:41 O2 Delivery Device Vent 10/04/21 05:15 FiO2 28.0 % 10/04/21 05:15 Tidal Volume 0.32 10/04/21 05:15 PEEP 8.0 cmH20 10/04/21 05:15 Dining Server ID Hinja 10/04/21 05:15 Sodium 132 mmol/L (136-145) L 10/05/21 03:54 Potassium 4.0 mmol/L (3.5-5.1) 10/05/21 03:54 Chloride 96 mmol/L (98-107) L 10/05/21 03:54 Carbon Dioxide 24 mmol/L (22-29) 10/05/21 03:54 Anion Gap 16.0 (5-19) 10/05/21 03:54 BUN 16 mg/dL (8-23) 10/05/21 03:54 Creatinine 1.0 mg/dL (0.5-0.9) H 10/05/21 03:54 GFR Calculation Not Reportable 10/05/21 03:54 Glucose 129 mg/dL (65-115) H 10/05/21 03:54 POC Glucose 266 mg/dL (70-110) H 09/28/21 20:21 Calculated Osmolality 277 mOsm/kg (285-295) L 10/05/21 03:54 Calcium 8.5 mg/dL (8.5-10.5) 10/05/21 03:54 Magnesium 2.4 mg/dL (1.7-2.3) H 10/01/21 04:02 Iron 26 ug/dL (37-145) L 09/28/21 05:16 TIBC 230 mcg/dl 09/28/21 05:16 % Saturation 11.3 % (20-50) L 09/28/21 05:16 Unsat Iron Binding 204 ug/dL (112-347) 09/28/21 05:16 Ferritin 768 ng/mL (15-150) H 09/28/21 05:16 Total Bilirubin 0.3 mg/dL (0.15-1.2) 10/01/21 04:02 AST 56 U/L (0-32) H 10/01/21 04:02 ALT 81 U/L (0-33) H 10/01/21 04:02 Alkaline Phosphatase 93 IU/L (35-105) 10/01/21 04:02 Troponin T Gen 5 ng/L 36 ng/L (0-10) H 09/30/21 10:50 Troponin T Baseline Cancelled 09/25/21 20:55 Troponin T 120 Minute 70.47 ng/L (0-10) H 09/25/21 18:34 Delta Troponin T -12.53 ABS# (0-10) L 09/25/21 18:34 Troponin T Hi Sens 6Hr 69.07 ng/L (0-10) H 09/25/21 22:30 Troponin T Hi Sens 6Hr Delta -13.93 ng/L (0-12) L 09/25/21 22:30 C-Reactive Protein 33.9 mg/L (0.0-4.9) H 09/25/21 16:22 NT-Pro-B Natriuret Pep 90694 pg/mL (0-450) H 09/25/21 16:22 Total Protein 6.7 g/dL (6.6-8.7) 10/01/21 04:02 Albumin 2.6 g/dL (3.5-5.2) L 10/01/21 04:02 Globulin 4.1 g/dL (1.3-4.6) 10/01/21 04:02 Vitamin B12 607 pg/mL (232-1245) 09/28/21 05:16 Folate 17.5 ng/mL (4.8-37.3) 09/28/21 05:16 Procalcitonin 0.12 ng/mL (0-0.5) 09/25/21 18:34 TSH 1.49 uIU/mL (0.27-4.20) 09/25/21 20:55 Random Cortisol 14.82 ug/dL (2.47-19.5) 10/03/21 04:40 Urine Color Yellow (Yellow) 09/25/21 20:30 Urine Appearance Clear (CLEAR) 09/25/21 20:30 Urine pH 5 (5-7) 09/25/21 20:30 Ur Specific Arley 1.020 (1.005-1.030) 09/25/21 20:30 Urine Protein 1+ (Negative) H 09/25/21 20:30 Urine Glucose (UA) Norm (Normal) 09/25/21 20:30 Urine Ketones Negative (Negative) 09/25/21 20:30 Urine Blood Neg (Negative) 09/25/21 20:30 Urine Nitrate Negative (Negative) 09/25/21 20:30 Urine Bilirubin Neg (Negative) 09/25/21 20:30 Urine Urobilinogen Norm mg/dL (Negative) 09/25/21 20:30 Ur Leukocyte Esterase Negative (Negative) 09/25/21 20:30 Urine RBC 0-4 /hpf (0-2) H 09/25/21 20:30 Urine WBC 0-4 /hpf (0-5) H 09/25/21 20:30 Ur Squamous Epith Cells 10-15 /hpf (0-5) H 09/25/21 20:30 Amorphous Sediment 1+ /hpf 09/25/21 20:30 Urine Bacteria 1+ /hpf (NONE) H 09/25/21 20:30 Hyaline Casts 5-10 /lpf H 09/25/21 20:30 Nasal Influ A H1 2009 PCR Not detected (NOT DETECT) 09/25/21 17:25 Vancomycin Trough 11.1 ug/mL (10-15) 10/03/21 19:02 Coronavirus 229E (PCR) Not detected (NOT DETECT) 09/25/21 17:25 Influenza A (H1) PCR Not detected (NOT DETECT) 09/25/21 17:25 Influenza A (H3) PCR Not detected (NOT DETECT) 09/25/21 17:25 Influenza Type A Ag Cancelled 09/25/21 17:25 Influenza Type A (PCR) Not detected (NOT DETECT) 09/25/21 17:25 Influenza Type B Ag Cancelled 09/25/21 17:25 Influenza Type B (PCR) Not detected (NOT DETECT) 09/25/21 17:25 SARS-CoV-2 (PCR) Not detected (NOT DETECT) 09/25/21 17:25 Radiology Impressions Chest CTA 09/25/21 19:38 IMPRESSION: 1. Mucous plugging with in the left apicoposterior bronchus with alveolar airspace disease in the affected segment suggesting postobstructive atelectasis/pneumonia in the left upper lobe. Recommend followup chest imaging to insure resolution of these findings. 2. Diffuse, bilateral moderately severe areas of ground-glass opacification in a random distribution in both lungs. Differential diagnosis includes asymmetric pulmonary edema versus an atypical pneumonia, including viral organisms. Again, recommend followup chest imaging to insure resolution of these findings. 3. Evaluation of peripheral pulmonary arteries is limited beyond the segmental level secondary to the phase of contrast enhancement. No filling defects in the central pulmonary arteries to suggest a large pulmonary embolism. 4. Moderate bilateral pleural effusions. 5. Incidental/nonacute findings are listed in the report. Chest X-Ray 10/01/21 09:36 IMPRESSION: 1. Endotracheal tube is above the reba. 2. NG tube is in the stomach. 3. Low lung volumes in both lungs. 4. Right perihilar vascular congestion 5. Prominent left hilar soft tissues positional artifact . Chest/Abdomen/Pelvis CT 10/02/21 08:47 IMPRESSION: Findings consistent with interstitial pulmonary edema and potential air trapping versus sequela of early airspace pulmonary edema. There are also bilateral small volume pleural effusions and segmental atelectasis in the posterior left lung apex. IMPRESSION: 1. No acute intra-abdominal findings. 2. Punctate nonobstructing stone in the upper pole left kidney. Recent Clincial Data Last Vital Signs Temp 97.4 F L 10/04/21 23:00 Pulse 71 10/05/21 14:00 Resp 22 H 10/05/21 15:21 BP 86/46 10/05/21 14:00 Pulse Ox 100 10/05/21 15:21 Vital Signs Pulse Resp BP Pulse Ox 10/05/21 15:21 22 H 100 10/05/21 14:00 71 86/46 10/05/21 13:30 72 99/48 10/05/21 13:22 18 97 10/05/21 13:00 61 91/48 100 10/05/21 12:30 61 89/44 100 10/05/21 12:00 58 L 82/42 99 10/05/21 11:30 61 88/41 100 10/05/21 11:22 14 98 10/05/21 11:00 59 L 102/62 97 10/05/21 10:30 61 106/57 96 10/05/21 10:04 14 96 10/05/21 10:00 66 114/71 97 10/05/21 09:30 60 103/54 95 10/05/21 09:00 67 116/56 94 10/05/21 08:30 68 120/58 10/05/21 08:00 61 134/69 97 10/05/21 07:42 16 98 10/05/21 07:30 65 127/57 94 10/05/21 07:15 63 113/52 94 10/05/21 07:00 59 L 104/49 93 10/05/21 06:45 60 105/45 94 10/05/21 06:30 59 L 103/49 94 10/05/21 06:15 62 110/53 95 10/05/21 06:12 14 97 10/05/21 06:00 66 111/50 95 10/05/21 05:45 61 111/53 94 10/05/21 05:30 63 111/53 93 10/05/21 05:15 62 101/45 94 10/05/21 05:00 68 92/41 95 10/05/21 04:45 62 98/47 95 Intake & Output/Weight 10/03/21 10/04/21 10/05/21 10/06/21 06:59 06:59 06:59 06:59 Intake Total 2105.672 / 2105.672 2460.884 / 2460.884 1291.166 / 1291.166 641.187 / 641.187 Output Total 1700 / 1700 2370 / 2370 500 / 500 Balance 405.672 / 405.672 90.884 / 90.884 791.166 / 791.166 641.187 / 641.187 Vitals Last Vital Signs Temp 97.4 F L 10/04/21 23:00 Pulse 71 10/05/21 14:00 Resp 22 H 10/05/21 15:21 BP 86/46 10/05/21 14:00 Pulse Ox 100 10/05/21 15:21 TS Medications Medications Acetaminophen (Acetaminophen 500 Mg Tablet) 500 mg PO Q4H PRN PRN Reason: fever Last Admin: 10/03/21 17:20 Dose: 500 mg Documented by: Albuterol/Ipratropium (Ipratropium-Albuterol 3 Ml Neb) 3 ml INHALATION Q6H PRN PRN Reason: SHORTNESS OF BREATH Last Admin: 10/02/21 19:56 Dose: 3 ml Documented by: Enoxaparin Sodium (Enoxaparin 40 Mg/0.4 Ml Syringe) 40 mg SUBCUT Q24H [facility] Last Admin: 10/05/21 12:58 Dose: 40 mg Documented by: Furosemide (Furosemide 40 Mg Tablet) 40 mg PO DAILY@0800 [facility] Furosemide (Furosemide 10 Mg/Ml Sdv 4ml) 40 mg IVP Q24H [facility] Last Admin: 10/02/21 11:42 Dose: 40 mg Documented by: Norepinephrine Bitartrate 8 mg (/ Dextrose) 508 mls @ 0 mls/hr IV .Q0M [facility]ENN[facility]; Protocol Last Titration: 10/05/21 14:04 Dose: 2 mcg/min, 7.62 mls/hr Documented by: Piperacillin Sod/Tazobactam (Sod 3.375 gm/ Sodium Chloride) 50 mls @ 12.5 mls/hr IV Q8H [facility]; Protocol Last Infusion: 10/05/21 14:57 Dose: Infused Documented by: dexmedeTOMIDine 0.9 % NaCL (Precedex) 400 mcg in 100 mls @ 0 mls/hr IV .Q0M [facility]; Protocol Vancomycin HCl 1,000 mg/ (Sodium Chloride) 250 mls @ 250 mls/hr IV Q24H [facility]; Protocol Losartan Potassium (Losartan 50 Mg Tablet) 25 mg PO DAILY [facility] Last Admin: 09/27/21 08:41 Dose: 25 mg Documented by: Metoprolol Tartrate (Metoprolol Tartrate 25 Mg Tablet) 12.5 mg PO BID [facility] Last Admin: 09/28/21 17:48 Dose: 12.5 mg Documented by: Midodrine (Midodrine 5 Mg Tablet) 5 mg PO TID [facility] Last Admin: 10/05/21 15:15 Dose: 5 mg Documented by: Nystatin (Nystatin Powder 15 Gm Btl) 1 applic TOPICAL BID [facility] Last Admin: 10/05/21 09:03 Dose: 1 applic Documented by: Senna/Docusate Sodium (Sennosides-Docusate Tablet) 1 tab PO DAILY [facility] Last Admin: 10/05/21 08:21 Dose: 1 tab Documented by: Spironolactone (Spironolactone 25 Mg Tablet) 25 mg PO DAILY [facility] Last Admin: 09/27/21 08:41 Dose: 25 mg Documented by: Discontinued Medications Azithromycin (Azithromycin 250 Mg Tablet) 500 mg PO DAILY [facility]; Protocol Last Admin: 09/30/21 09:09 Dose: 500 mg Documented by: Etomidate (Etomidate 2 Mg/Ml Inj) 20 mg IVP NOW ONE Stop: 09/30/21 11:04 Last Admin: 09/30/21 12:22 Dose: 20 mg Documented by: Folic Acid/Iron/Vitamin B12 (Iron Complex Forte Capsule) 1 each PO EVERY OTHER DAY [facility] Last Admin: 10/05/21 08:22 Dose: 1 each Documented by: Furosemide (Furosemide 10 Mg/Ml Sdv 4ml) 40 mg IVP Q8H [facility] Stop: 09/28/21 06:16 Last Admin: 09/28/21 06:41 Dose: 40 mg Documented by: Furosemide (Furosemide 10 Mg/Ml Sdv 2ml) 20 mg IVP ONCE ONE Stop: 10/03/21 20:01 Last Admin: 10/03/21 20:38 Dose: 20 mg Documented by: Furosemide (Furosemide 10 Mg/Ml Sdv 10ml) 80 mg IVP ONCE ONE Stop: 09/25/21 19:46 Last Admin: 09/25/21 20:27 Dose: 80 mg Documented by: Furosemide (Furosemide 10 Mg/Ml Sdv 10ml) 60 mg IVP Q12H [facility] Last Admin: 09/26/21 08:35 Dose: 60 mg Documented by: Furosemide (Furosemide 20 Mg Tablet) 20 mg PO DAILY@0800 [facility] Last Admin: 09/27/21 08:40 Dose: 20 mg Documented by: Guaifenesin (Guaifenesin 600 Mg Tablet) 1,200 mg PO BID [facility] Last Admin: 10/05/21 08:21 Dose: 1,200 mg Documented by: Fentanyl 2,500 mcg/ Sodium (Chloride) 250 mls @ 0 mls/hr IV .Q0M [facility]; Protocol Last Titration: 10/05/21 15:11 Dose: Infused Documented by: Norepinephrine Bitartrate 4 mg (/ Dextrose) 254 mls @ 0 mls/hr IV .Q0M [facility]; Protocol Last Titration: 09/30/21 22:56 Dose: Infused Documented by: Midazolam HCl 100 mg/ Sodium (Chloride) 100 mls @ 0 mls/hr IV .Q0M [facility]; Protocol Last Titration: 10/05/21 15:11 Dose: Infused Documented by: Vancomycin HCl 1,000 mg/ (Sodium Chloride) 250 mls @ 250 mls/hr IV Q18H [facility]; Protocol Last Infusion: 10/05/21 08:44 Dose: Infused Documented by: Sodium Chloride (Sodium Chloride 0.9%) 500 mls @ 500 mls/hr IV ONCE ONE Stop: 10/03/21 11:50 Last Infusion: 10/03/21 13:51 Dose: Infused Documented by: Albumin Human (Albumin) 12.5 gm in 50 mls @ 60 mls/hr IV ONCE ONE Stop: 10/03/21 14:51 Last Infusion: 10/03/21 15:40 Dose: 0 mls/hr Documented by: Albumin Human (Albumin) 12.5 gm in 250 mls @ 300 mls/hr IV ONCE ONE Stop: 10/04/21 08:39 Last Admin: 10/04/21 08:23 Dose: 300 mls/hr Documented by: Sodium Chloride (Sodium Chloride 0.9%) 250 mls @ 250 mls/hr IV ONCE ONE Stop: 10/05/21 11:30 Last Infusion: 10/05/21 15:12 Dose: Infused Documented by: Ceftriaxone Sodium 1,000 mg/ (Sodium Chloride) 50 mls @ 100 mls/hr IV ONCE ONE; Protocol Stop: 09/25/21 18:15 Last Infusion: 09/25/21 20:27 Dose: Infused Documented by: Azithromycin 500 mg/ Sodium (Chloride) 250 mls @ 250 mls/hr IV ONCE ONE; Protocol Stop: 09/25/21 18:45 Last Infusion: 09/25/21 20:27 Dose: Infused Documented by: Ceftriaxone Sodium 1,000 mg/ (Sodium Chloride) 50 mls @ 100 mls/hr IV DAILY [facility]; Protocol Last Admin: 10/01/21 09:13 Dose: 100 mls/hr Documented by: Iohexol (Iohexol 350 Mg/Ml 100 Ml Btl) 0 ml IV ONCE ONE Stop: 09/25/21 21:10 Last Admin: 09/25/21 21:09 Dose: 95 ml Documented by: Magnesium Hydroxide (Magnesium Hydroxide 30 Ml Udc) 15 ml PO NOW ONE Stop: 09/28/21 09:09 Last Admin: 09/28/21 13:37 Dose: 15 ml Documented by: Magnesium Hydroxide (Magnesium Hydroxide 30 Ml Udc) 15 ml PO NOW ONE Stop: 09/28/21 13:46 Last Admin: 09/28/21 13:43 Dose: Not Given Documented by: Morphine Sulfate (Morphine 4 Mg/Ml Sdv 1 Ml) 1 mg IVP ONCE ONE Stop: 09/27/21 11:41 Last Admin: 09/27/21 11:49 Dose: 1 mg Documented by: Morphine Sulfate (Morphine 4 Mg/Ml Sdv 1 Ml) 2 mg IVP ONCE ONE Stop: 09/25/21 20:06 Last Admin: 09/25/21 20:27 Dose: 2 mg Documented by: Potassium Chloride (Potassium Chloride Er 20 Meq Tablet) 40 meq PO ONCE ONE Stop: 09/27/21 14:09 Last Admin: 09/27/21 14:56 Dose: 40 meq Documented by: Prednisone (Prednisone 20 Mg Tablet) 40 mg PO DAILY [facility] Last Admin: 09/27/21 08:41 Dose: 40 mg Documented by: Rocuronium [facility] (Rocuronium 10 Mg/Ml Inj 5ml) 100 mg IVP ONCE ONE Stop: 09/30/21 11:04 Last Admin: 09/30/21 12:22 Dose: 100 mg Documented by: Sodium Polystyrene Sulfonate (Sodium Polystyrene Sulfonate 15 Gm/60 Ml Btl) 15 gm PO ONCE ONE Stop: 09/28/21 07:26 Last Admin: 09/28/21 09:04 Dose: 15 gm Documented by: Allergies No Known Allergies Allergy (Verified 09/25/21 20:48) Home Medications No Known Home Medications 09/25/21 [History Confirmed 09/25/21] Discharge Plan Discharge Patient Disposition: Home Condition: Stable Prescriptions: No Action No Known Home Medications 0RF Discharge Orders: Transfer Out of Facility (Order); Ordered 10/05/21 Ordered By: Rocio Goldsmith Referrals: Boris Ruffin MD [Physician] - (New patient appointment) Patient Instructions: Opioid Safety Transfer Attestations Time Spent in Transfer Care: less than 30 min Quality Metrics Clinical Quality Measures [ No reported AMI, CVA or VTE this stay] Coding Level of Care Code Acute Search Strategist for Chg Fwd Diagnoses Ulcer of sacral region, stage 1 L98.429 Hypotension I95.9 Acute hyperkalemia E87.5 Anemia D64.9 HTN (hypertension) I10 Aortic valve stenosis I35.0 Acute respiratory failure with hypoxia J96.01 Mucus plugging of bronchi T17.500A Respiratory failure J96.90 CHF exacerbation I50.9 Pneumonia J18.9
--- NOTE | 2021-10-05 16:52 | PC.NURSE ---
report given to jeanine abarca for transfer to [id number] report to Sudheer Weber.. phone [phone]
--- NOTE | 2021-10-05 20:18 | PC.NURSE ---
Shift report received. [facility] at bedside to transfer patient to [place]. Daughter at bedside. Assessment completed. Levophed infusing at 4 mcg. Vital signs stable. #[address] 25 @ the lip.
== END 2021-10-05 19:45 | disposition short-term general hospital (02) | DRG 207 ==
LOC: ER 18:33 → MEDSURG 19:06 → ICU 09-30 11:06
PROVIDERS: Student in an Organized Health Care Education/Training Program; Admitting Provider Internal Medicine; Emergency Provider Emergency Medicine; PCP Family Medicine; Visit Provider Internal Medicine
DX: J96.01 Acute respiratory failure with hypoxia (principal); J18.9 Pneumonia, unspecified organism; I50.21 Acute systolic (congestive) heart failure; I42.9 Cardiomyopathy, unspecified; Z87.01 Personal history of pneumonia (recurrent); I48.91 Unspecified atrial fibrillation; I11.0 Hypertensive heart disease with heart failure; Z91.128 Patient's intentional underdosing of medication regimen for other reason; I35.0 Nonrheumatic aortic (valve) stenosis; D50.9 Iron deficiency anemia, unspecified; E87.5 Hyperkalemia; T50.905A Adverse effect of unspecified drugs, medicaments and biological substances, initial encounter; K59.00 Constipation, unspecified; E66.9 Obesity, unspecified; Z68.30 Body mass index [BMI] 30.0-30.9, adult; R00.0 Tachycardia, unspecified; C44.319 Basal cell carcinoma of skin of other parts of face; L89.151 Pressure ulcer of sacral region, stage 1
CPT/HCPCS: 36415; 36416; 36600; 51702; 71045; 71250; 71275; 74176; 80048; 80051; 80053; 80202; 81001; 82274; 82330; 82533; 82607; 82728; 82746; 82803; 82805; 82962; 83540; 83550; 83735; 83880; 84145; 84443; 84484; 85025; 86140; 87040; 87070; 87077; 87150; 87186; 87205; 87631; 87635; 87641; 93005; 93306; 93308; 93325; 94003; 94640; 94660; 94664; 94669; 94799; 96365; 96367; 96372; 96375; 97161; 97167; 97530; 99291; J0456; J0696; J1650; J1940; J2250; J2270; J2543; J3010; J3370; J3490; J7040; J7050; J7512; P9041; P9047; Q0144; Q9967